=== PATIENT | female | born 1970 | race Caucasian/White ===

== ENCOUNTER → 2018-11-30 11:41 | Outpatient (CLI) | payer OTHER, SELFPAY ==
--- NOTE | 2018-11-30 11:43 | DI.MG.S_ITS ---
BILATERAL DIGITAL SCREENING MAMMOGRAM 3D/2D WITH CAD: 11/30/2018 CLINICAL: Routine screening. Family history of breast cancer. Comparison is made to exams dated: 11/18/2017 mammogram, 08/14/2015 mammogram, 07/31/2015 mammogram, and 10/26/2012 mammogram - [facility]. The tissue of both breasts is predominantly fatty. Current study was also evaluated with a Computer Aided Detection (CAD) system. No significant masses, calcifications, or other findings are seen in either breast. There has been no significant interval change. IMPRESSION: NEGATIVE There is no mammographic evidence of malignancy. A 1 year screening mammogram is recommended. This exam was interpreted at Station ID: [id number]. NOTE: For mammograms, a report in lay terms will be sent to the patient. Approximately 15% of breast malignancies will not be visualized mammographically. In the management of a palpable breast mass, a negative mammogram must not discourage biopsy of a clinically suspicious lesion. Electronically Signed By: Teodoro hamilton/galileo:11/30/2018 12:34:39 letter sent: Normal Exam ACR BI-RADS Category 1: Negative [id number]
== END ==
PROVIDERS: PCP Student in an Organized Health Care Education/Training Program; Visit Provider Student in an Organized Health Care Education/Training Program
DX: Z12.31 Encounter for screening mammogram for malignant neoplasm of breast (principal); Z80.3 Family history of malignant neoplasm of breast
CPT/HCPCS: 77063; 77067

== ENCOUNTER → 2019-03-05 07:23 | Outpatient (CLI) | payer OTHER, SELFPAY ==
[2019-03-05 08:15] LABS: BUN Creatinine Ratio 36.7 (6-22); Blood Urea Nitrogen 22 mg/dL (7-17); Calcium 9.7 mg/dL (8.4-10.2); Carbon Dioxide 26 mmol/L (22-32); Chloride 105 mmol/L (98-107); Cholesterol 239 mg/dL (140-199); Estimated Glomerular Filt Rate > 60.0 mL/min (>60); Glucose 98 mg/dL (70-100); HDL Cholesterol 57 mg/dL (40-60); HEMOLYSIS < 15 (0-50); LDL Cholesterol Calculated 118 mg/dL (<100); Potassium 4.4 mmol/L (3.4-5.1); Sodium 139 mmol/L (137-145); Triglycerides 322 mg/dL (35-150)
[2019-03-05 08:30] LABS: Vitamin D 25 Hydroxy (D3) 17.3 ng/mL (30.0-100.0)
== END ==
PROVIDERS: PCP Student in an Organized Health Care Education/Training Program; Visit Provider Student in an Organized Health Care Education/Training Program
DX: I10 Essential (primary) hypertension (principal); E78.2 Mixed hyperlipidemia; F17.200 Nicotine dependence, unspecified, uncomplicated; Z13.220 Encounter for screening for lipoid disorders; E55.9 Vitamin D deficiency, unspecified
CPT/HCPCS: 36415; 80048; 80061; 82306

== ENCOUNTER 2019-11-20 13:17 | Inpatient (IN) | payer OTHER, SELFPAY ==
[2019-11-20] VITALS (22 sets, daily range): BP systolic 90–144; BP diastolic 55–92; PULSE 92–105; RESP 16–33; TEMP 36.3–37.7; O2SAT 91–100; BMI 34.3
--- NOTE | 2019-11-20 | PATH_ITS ---
[facility] Accession Number: [id number] . 01 Material submitted: . gallbladder - GALLBLADDER WITH CONTENTS . 01 Clinical history: . ABD. PAIN X 2 DAYS AND DIARRHEA . 02 Diagnosis: Gallbladder, Cholecystectomy: Gallbladder with transmural coagulative necrosis, serositis and fibrous adhesions. No evidence of dysplasia or malignancy. [facility] 11/25/2019 1344 Local . 02 Comment: The morphologic appearance could be compatible with advanced gangrenous chlecystitis in the appropriate clinical and surgical setting. Pre analytic autolysis can not be completely excluded based on histology. . 02 Electronically signed: . Angela Mg MD, Pathologist NPI- [id number] . 01 Gross description: . Received in formalin, labeled gallbladder and contents, is an opened gallbladder (length-9.5 cm, diameter-5.5 cm) with ward-green smooth shiny serosa and an obliterated cystic duct. The proximal end is torn and ragged. No lymph nodes are identified. The lumen is void of contents. The mucosa is green, smooth and flat. The wall is up to 0.1 cm thick. No nodules, masses or lesions are identified. Section code: (A1) most proximal end, serially sectioned, entirely submitted; (A2) two technical sales representatives serial sections from the body; (A3) two technical sales representatives longitudinal sections from the fundus. ([id number]) /MRV 11/22/2019 1316 Local . 02 Pathologist provided ICD-10: K81.9 . 02 CPT . 943765 Performed at: 01 [facility] [address], [place], [place] [id number] MD Isaias Isidro MD Phone: [phone] Performed at: 02 [facility] [address] [place] [id number] MD Angela Mg MD Phone: [phone]
[2019-11-20 13:51] LABS: Add Manual Diff / Slide Review NO; Basophils Absolute Auto 0 /uL (0-100); Basophils Percent Auto 0.1 % (0-2); Eosinophils Absolute Auto 0 /uL (0-450); Eosinophils Percent Auto 0.1 % (2-4); Hematocrit 44.3 % (36-46); Hemoglobin 14.6 g/dL (12.0-16.0); Lymphocytes Absolute Auto 3400 /uL (1100-4500); Lymphocytes Percent Auto 20.7 % (25-40); Mean Corpuscular Hemoglobin 30.4 PG (26-34); Mean Corpuscular Volume 92.2 fL (80-100); Monocytes Absolute Auto 1100 /uL (0-900); Monocytes Percent Auto 6.7 % (3-14); Neutrophils Absolute Auto 12000 /uL (1500-7000); Neutrophils Percent Auto 72.4 % (50-75); Platelet Count 476 X10^3/uL (150-400); Red Cell Distribution Width 13.2 % (11.6-14.8); White Blood Cell Count 16.6 X10^3/uL (4.5-11.0)
[2019-11-20] MEDS: SODIUM CHLORIDE 0.9% 1,000 ML 1000 ML IV (13:55)
[2019-11-20 13:56] LABS: Alanine Aminotransferase 55 IU/L (<35); Albumin 4.2 g/dL (3.5-5.0); Albumin Globulin Ratio 1.1 (1.0-2.8); Alkaline Phosphatase 171 U/L (38-126); Aspartate Aminotransferase 56 IU/L (14-36); BUN Creatinine Ratio 37.2 (6-22); Bilirubin Total 1.7 mg/dL (0.2-1.3); Blood Urea Nitrogen 64 mg/dL (7-17); Calcium 10.1 mg/dL (8.4-10.2); Carbon Dioxide 25 mmol/L (22-32); Chloride 89 mmol/L (98-107); Estimated Glomerular Filt Rate 31.3 mL/min (>60); Globulin 3.9 g/dL (1.7-4.1); Glucose 205 mg/dL (70-100); HEMOLYSIS 39 (0-50); Lipase 15 U/L (23-300); Potassium 3.3 mmol/L (3.4-5.1); Sodium 132 mmol/L (137-145); Total Protein 8.1 g/dL (6.3-8.2)
[2019-11-20 13:58] LABS: Lactate (Lactic Acid) 4.2 mmol/L (0.7-2.1)
--- NOTE | 2019-11-20 13:59 | ED_ITS ---
HPI - Abdominal Pain <IMER Kate - Last Filed: 11/20/19 20:31> General Chief Complaint: Abdominal Pain Stated Complaint: Abd. pain x 2 days & diarrea Time Seen by Provider: 11/20/19 13:22 Source: patient Mode of arrival: Wheelchair Limitations: no limitations History of Present Illness HPI narrative: This is a 49-year-old female, smoker, who presents to ED with chief complain of bilateral low abdominal pain which started 2 days ago with vomiting and feeling very weak with low energy. Patient reports she had vomited about 5 to 6 times a day for last 2 days which has stopped today but still feels nauseated. Patient reports also dark green collar diarrhea started last night and she had about 3-4 times of episode so far. Last bowel movement was about an hour ago before coming into ED. patient reports she feels as having acid reflux and having frequent belching when she sits up. Patient denies fever, chills, nausea or vomiting. Patient denies recent travel, using antibiotic medications, similar symptoms among other family members, or urinary symptoms. Patient reports last solid meal was Monday evening and has been trying to hydrate with water in between emesis. Patient reports abdominal pain is 8/10 with constant cramping. Patient denies chest pain, breathing difficulty. Patient denies history of abdominal surgeries but chronic condition as hypertension. Patient denies using alcohol and uses occasional marijuana. Related Data Previous Rx's Medication Instructions Recorded nicotine 21 mg TOPICAL QDAY #45 patch 11/03/17 lisinopril 10 mg tablet 10 mg PO Q DAY #90 tab 11/13/18 Allergies Allergy/AdvReac Type Severity Reaction Status Date / Time Penicillins [PENICILLINS] Allergy Severe rash Verified 11/20/19 14:53 mold [MOLD] Allergy Unknown Verified 11/20/19 14:53 Review of Systems <IMER Kate - Last Filed: 11/20/19 20:31> Review of Systems Narrative: General: Denies fever, chills, (+) fatigue, malaise, sweats. HEENT: Denies sinus pain, ear pain, sore throat, difficulty swallowing, dizziness. Respiratory: Denies dyspnea, cough, wheezing, hemoptysis, sputum. Cardiovascular: Denies chest pain, palpitations, orthopnea, edema. Gastrointestinal: See HPI : Denies dysuria, frequency, incontinence, hematuria, urinary retention. Musculoskeletal: Denies weakness, joint pain or bony pain. Skin: Denies rash, skin lesions, or other. Neurologic: Denies weakness, headache, numbness, change in speech, confusion, seizures, incoordination. Psychiatric: No concerning psychosocial issues. 12-point review of systems is negative except for those stated above. Patient History <IMER Kate - Last Filed: 11/20/19 20:31> Medical History Endometrial hyperplasia (Chronic) Fibroids (Chronic) Hyperparathyroidism (Chronic) Hypertension (Chronic) Neck pain (Chronic) Surgical History History of hysterectomy (Resolved) Family History Grandfather Type 2 diabetes mellitus without complication Grandmother Secondary hypertension, unspecified Mother Age: 72 Sleep apnea, unspecified type Social History Smoking Status: Current every day smoker Smoking Status: Current every day smoker alcohol intake frequency: holidays/special occasions only Substance Use Type: marijuana Exam <IMER Kate - Last Filed: 11/20/19 20:31> Narrative Exam Narrative: GEN: Alert, oriented x 3, ill appearing and well-nourished. Appears to be in discomfort with shallow but tachypnea and facial grimacing. Head: Normal cephalic, atraumatic. No scalp or temporal tenderness, palpable mass or rash. EYES: Pupils are equal, round, and reactive to light and accommodation. Extraocular muscles are intact bilaterally. There is no subconjunctival hemorrhage, exudate and sclera non-icteric. ENT: Hearing grossly intact. Nose without bleeding, purulent discharge. Mucous membrane dry, no mucosal lesion. Throat without erythema, tonsillar hypertrophy or exudate. Uvula in midline, airway patent. Neck: Trachea in midline. No JVD, non-tender without lymphadenopathy. No masses or thyroid megaly. Supple, non-tender and no meningeal signs. CARDIAC: Normal regular rate and rhythm without murmurs, gallops, or rubs. No chest wall tenderness. No peripheral edema, cyanosis or pallor. Capillary refill is less than 3 seconds. RESPIRATORY: Lungs are clear to auscultate bilaterally. No cough, wheezes, rales, or rhonchi. No stridor, respiratory distress, increase work of breathing, or accessary muscle used. ABD: Abdomen soft and non-distended. Tenderness to palpate in bilateral low abdomen. No guarding or rebound tenderness to palpate. Bowel sounds are normal in all 4 quadrants. There is no palpable masses or organomegaly. EXT: Full painless ROM of all extremities with no loss of sensation, strength, effusion or edema. SKIN: Cool, dry, slightly pale color for patient. No erythema, lesions or rash over visible areas. BACK: Nontender without deformity or crepitance. No flank tenderness. NEUROLOGICAL: Alert and oriented to place, time and person. Sensation and motor function intact bilaterally. No facial droops, dysphasia. PSYCHIATRIC: Good judgement and reason, without hallucinations, abnormal affect or abnormal behaviors during the examination. Patient is not suicidal. Initial Vital Signs Initial Vital Signs: Vital Signs Temperature 98.2 F 11/20/19 13:23 Pulse Rate 102 H 11/20/19 13:23 Respiratory Rate 28 H 11/20/19 13:23 Blood Pressure 110/59 L 11/20/19 13:23 Pulse Oximetry 96 11/20/19 13:23 <Gerald Clifford MD - Last Filed: 11/21/19 07:44> Initial Vital Signs Initial Vital Signs: Vital Signs Temperature 98.2 F 11/20/19 13:23 Pulse Rate 102 H 11/20/19 13:23 Respiratory Rate 28 H 11/20/19 13:23 Blood Pressure 110/59 L 11/20/19 13:23 Pulse Oximetry 96 11/20/19 13:23 Scores <IMER Kate - Last Filed: 11/20/19 20:31> ABCD2 Citation: SIRS > 2 points GCS Robert coma scale eye opening: Spontaneous [place] coma scale verbal response: Orientated Robert coma scale motor response: Obey commands [place] coma scale total score: 15 qSOFA Altered Mental Status (GCS <15): No Respiratory rate greater than/equal to 22: Yes Systolic blood pressure less than or equal to 100: No qSOFA Total: 1 0-1 Not High Risk 1-3 High risk SOFA Platelets: >= 150 Bilirubin: 1.2-1.9 mg/dL Hypotension: MAP >= 70 mmHg Robert Coma Scale: 15 Renal: Creatinine 1.2-1.9 mg/dL Course <Filiberto ShayneRiteshReynaldoIMER khan - Last Filed: 11/20/19 20:31> Orders Ordered: Enoxaparin Sodium (Lovenox) 40 mg SUBCUT DAILY [facility] Fentanyl (Sublimaze) 0 mcg IV Q5MIN PRN PRN Reason: Pain, Severe (7-10) Hydromorphone HCl (Dilaudid) 0 mg IV Q5MIN PRN PRN Reason: Pain, Mild (1-3) Hydromorphone HCl (Dilaudid) 0.5 mg IV Q2HR [facility] Last Admin: 11/21/19 06:57 Dose: Not Given Documented by: Admin: 11/21/19 05:17 Dose: 0.5 mg Documented by: Admin: 11/21/19 02:54 Dose: Not Given Documented by: ALCIDES Sodium Chloride (Normal Saline 0.9%) 1,000 mls @ 100 mls/hr IV CONT [facility] Last Admin: 11/20/19 22:37 Dose: 100 mls/hr Documented by: CONRADO Ciprofloxacin (Cipro) 400 mg in 200 mls @ 200 mls/hr IV Q12H [facility] Last Infusion: 11/21/19 03:55 Dose: 200 mls/hr Documented by: Admin: 11/21/19 02:55 Dose: 200 mls/hr Documented by: ALCIDES Metronidazole (Flagyl) 500 mg in 100 mls @ 100 mls/hr IV Q8H [facility] Last Admin: 11/21/19 06:45 Dose: 100 mls/hr Documented by: Infusion: 11/21/19 00:31 Dose: 100 mls/hr Documented by: Admin: 11/20/19 23:31 Dose: 100 mls/hr Documented by: ALCIDES Lisinopril (Zestril) 10 mg PO DAILY [facility] Last Admin: 11/20/19 23:28 Dose: Not Given Documented by: ALCIDES Naloxone HCl (Narcan) 0.2 mg IV Q2MIN PRN PRN Reason: Opiate Reversal Nicotine (Nicoderm) 21 mg TOP DAILY [facility] Last Admin: 11/20/19 23:31 Dose: 21 mg Documented by: ALCIDES Ondansetron HCl (Zofran) 4 mg IV Q8HR PRN PRN Reason: Nausea And Vomiting Oxycodone HCl (Percolone) 5 mg PO Q6HR PRN PRN Reason: Pain, Moderate (4-6) Discontinued Medications Acetaminophen (Tylenol) 650 mg PO NOW ONE Stop: 11/20/19 15:42 Last Admin: 11/20/19 15:44 Dose: 650 mg Documented by: FRANCISCO Albuterol (Ventolin) 2.5 mg INH Q20M PRN PRN Reason: Shortness Of Breath Stop: 11/20/19 14:26 Albuterol/Ipratropium (Duoneb) 3 ml INH NOW ONE Stop: 11/20/19 13:39 Last Admin: 11/20/19 13:42 Dose: Not Given Documented by: RASHEED Bupivacaine HCl (Sensorcaine 0.5% (Pf)) 30 ml INJ NOW ONE Stop: 11/20/19 20:27 Last Admin: 11/20/19 20:26 Dose: 30 ml Documented by: RODRIGO Dicyclomine HCl (Bentyl) 10 mg PO NOW ONE Stop: 11/20/19 13:41 Last Admin: 11/20/19 14:50 Dose: Not Given Documented by: FRANCISCO Gabapentin (Neurontin) 300 mg PO NOW ONE Stop: 11/20/19 19:04 Last Admin: 11/20/19 22:37 Dose: Not Given Documented by: CONRADO Hydromorphone HCl (Dilaudid) 0.5 mg IV Q2HR [facility] Last Admin: 11/21/19 01:13 Dose: 0.5 mg Documented by: Admin: 11/20/19 23:47 Dose: Not Given Documented by: ALCIDES Sodium Chloride (Normal Saline 0.9%) 1,000 mls @ 150 mls/hr IV CONT [facility] Sodium Chloride (Normal Saline 0.9%) 1,000 mls @ 999 mls/hr IV CONT [facility] Last Infusion: 11/20/19 15:50 Dose: 0 mls/hr Documented by: Admin: 11/20/19 14:51 Dose: 999 mls/hr Documented by: FRANCISCO Sodium Chloride (Normal Saline 0.9%) 1,000 mls @ 1,000 mls/hr IV BOLUS ONE Stop: 11/20/19 15:04 Last Infusion: 11/20/19 16:48 Dose: 0 mls/hr Documented by: Admin: 11/20/19 13:55 Dose: 1,000 mls/hr Documented by: FRANCISCO Lactated Ringer's (Lactated Ringers) 1,000 mls @ 1,000 mls/hr IV BOLUS ONE Stop: 11/20/19 15:04 Last Infusion: 11/20/19 16:47 Dose: 0 mls/hr Documented by: Admin: 11/20/19 14:17 Dose: 1,000 mls/hr Documented by: FRANCISCO Potassium Chloride/Sodium Chloride (Ns With Kcl 20 Meq) 1,000 mls @ 100 mls/hr IV CONT [facility] Potassium Chloride/Sodium Chloride (Ns With Kcl 20 Meq) 10 mls @ 100 mls/hr IV CONT [facility] Last Admin: 11/20/19 15:53 Dose: Not Given Documented by: FRANCISCO Piperacillin/Tazobactam/Dextrose (Zosyn) 3.375 gm in 50 mls @ 100 mls/hr IV NOW ONE Stop: 11/20/19 14:40 Last Admin: 11/20/19 15:53 Dose: Not Given Documented by: FRANCISCO Vancomycin HCl (Vancomycin) 1,000 mg in 200 mls @ 200 mls/hr IV NOW ONE Stop: 11/20/19 15:09 Last Infusion: 11/20/19 17:55 Dose: 0 mls/hr Documented by: Admin: 11/20/19 16:51 Dose: 200 mls/hr Documented by: FRANCISCO Potassium Chloride 20 meq/ (Sodium Chloride) 260 mls @ 130 mls/hr IV NOW ONE Stop: 11/20/19 16:29 Last Infusion: 11/20/19 18:24 Dose: 0 mls/hr Documented by: FRANCISCO Cosigned by: STEPHEN Admin: 11/20/19 15:08 Dose: 130 mls/hr Documented by: FRANCISCO Cosigned by: STEPHEN Ciprofloxacin (Cipro) 400 mg in 200 mls @ 200 mls/hr IV NOW [facility] Last Infusion: 11/20/19 16:47 Dose: 0 mls/hr Documented by: Admin: 11/20/19 15:09 Dose: 200 mls/hr Documented by: FRANCISCO Cefepime HCl 1 gm/ Sodium (Chloride) 100 mls @ 200 mls/hr IV NOW ONE Stop: 11/20/19 17:38 Last Infusion: 11/20/19 18:52 Dose: 0 mls/hr Documented by: Admin: 11/20/19 17:59 Dose: 200 mls/hr Documented by: STEPHEN Lactated Ringer's (Lactated Ringers) 1,000 mls @ 42 mls/hr IV CONT [facility] Last Infusion: 11/20/19 21:55 Dose: 0 mls/hr Documented by: Admin: 11/20/19 20:28 Dose: 42 mls/hr Documented by: Infusion: 11/20/19 20:28 Dose: 42 mls/hr Documented by: Admin: 11/20/19 20:25 Dose: 42 mls/hr Documented by: Infusion: 11/20/19 20:25 Dose: 42 mls/hr Documented by: Admin: 11/20/19 19:45 Dose: 42 mls/hr Documented by: AMINTA Lactated Ringer's (Lactated Ringers) 1,000 mls @ 120 mls/hr IV CONT [facility] Last Admin: 11/20/19 22:39 Dose: Not Given Documented by: CONRADO Methylprednisolone (Solu-Medrol 125 Mg Vial) 125 mg IV NOW ONE Stop: 11/20/19 13:39 Last Admin: 11/20/19 13:42 Dose: Not Given Documented by: RASHEED Morphine Sulfate (Morphine) 4 mg IV NOW ONE Stop: 11/20/19 14:51 Last Admin: 11/20/19 15:10 Dose: 4 mg Documented by: FRANCISCO Morphine Sulfate (Morphine) 4 mg IV NOW ONE Stop: 11/20/19 17:27 Last Admin: 11/20/19 17:35 Dose: 4 mg Documented by: STEPHEN Ondansetron HCl (Zofran) 4 mg IV NOW ONE Stop: 11/20/19 13:41 Last Admin: 11/20/19 14:14 Dose: 4 mg Documented by: FRANCISCO Ondansetron HCl (Zofran) 4 mg IV NOW PRN PRN Reason: Nausea And Vomiting Oxycodone HCl (Percolone) 5 mg PO PACUNOW PRN PRN Reason: Mild or moderate pain Pantoprazole Sodium (Protonix) 40 mg IV NOW ONE Stop: 11/20/19 13:41 Last Admin: 11/20/19 14:10 Dose: 40 mg Documented by: FRANCISCO Potassium Chloride (Klor-Con M20) 20 meq PO NOW ONE Stop: 11/20/19 14:09 Last Admin: 11/20/19 16:51 Dose: 20 meq Documented by: FRANCISCO Vital Signs Vital signs: Vital Signs - 8 hr 11/20/19 13:23 11/20/19 14:30 11/20/19 15:00 Temperature 98.2 F Pulse Rate 102 H 98 H 97 H Respiratory Rate 28 H 27 H 26 H Blood Pressure 110/59 L Blood Pressure [Left Arm] 125/81 138/75 Pulse Oximetry 96 100 99 11/20/19 15:30 11/20/19 15:40 11/20/19 15:44 Temperature 99.9 F H 99.9 F H Pulse Rate 99 H Respiratory Rate 24 Blood Pressure Blood Pressure [Left Arm] 143/73 H Pulse Oximetry 99 11/20/19 16:30 11/20/19 17:05 11/20/19 17:14 Temperature 99.7 F H Pulse Rate 96 H 92 H Respiratory Rate 26 H 29 H Blood Pressure Blood Pressure [Left Arm] 141/73 H 144/92 H Pulse Oximetry 99 94 11/20/19 17:30 11/20/19 18:00 Temperature Pulse Rate 95 H 94 H Respiratory Rate 33 H 31 H Blood Pressure Blood Pressure [Left Arm] 136/77 136/83 Pulse Oximetry 91 93 <Gerald Clifford MD - Last Filed: 11/21/19 07:44> Orders Ordered: Enoxaparin Sodium (Lovenox) 40 mg SUBCUT DAILY [facility] Fentanyl (Sublimaze) 0 mcg IV Q5MIN PRN PRN Reason: Pain, Severe (7-10) Hydromorphone HCl (Dilaudid) 0 mg IV Q5MIN PRN PRN Reason: Pain, Mild (1-3) Hydromorphone HCl (Dilaudid) 0.5 mg IV Q2HR [facility] Last Admin: 11/21/19 06:57 Dose: Not Given Documented by: Admin: 11/21/19 05:17 Dose: 0.5 mg Documented by: Admin: 11/21/19 02:54 Dose: Not Given Documented by: ALCIDES Sodium Chloride (Normal Saline 0.9%) 1,000 mls @ 100 mls/hr IV CONT [facility] Last Admin: 11/20/19 22:37 Dose: 100 mls/hr Documented by: CONRADO Ciprofloxacin (Cipro) 400 mg in 200 mls @ 200 mls/hr IV Q12H [facility] Last Infusion: 11/21/19 03:55 Dose: 200 mls/hr Documented by: Admin: 11/21/19 02:55 Dose: 200 mls/hr Documented by: ALCDIES Metronidazole (Flagyl) 500 mg in 100 mls @ 100 mls/hr IV Q8H [facility] Last Admin: 11/21/19 06:45 Dose: 100 mls/hr Documented by: Infusion: 11/21/19 00:31 Dose: 100 mls/hr Documented by: Admin: 11/20/19 23:31 Dose: 100 mls/hr Documented by: ALCIDES Lisinopril (Zestril) 10 mg PO DAILY [facility] Last Admin: 11/20/19 23:28 Dose: Not Given Documented by: ALCIDES Naloxone HCl (Narcan) 0.2 mg IV Q2MIN PRN PRN Reason: Opiate Reversal Nicotine (Nicoderm) 21 mg TOP DAILY [facility] Last Admin: 11/20/19 23:31 Dose: 21 mg Documented by: ALCIDES Ondansetron HCl (Zofran) 4 mg IV Q8HR PRN PRN Reason: Nausea And Vomiting Oxycodone HCl (Percolone) 5 mg PO Q6HR PRN PRN Reason: Pain, Moderate (4-6) Discontinued Medications Acetaminophen (Tylenol) 650 mg PO NOW ONE Stop: 11/20/19 15:42 Last Admin: 11/20/19 15:44 Dose: 650 mg Documented by: FRANCISCO Albuterol (Ventolin) 2.5 mg INH Q20M PRN PRN Reason: Shortness Of Breath Stop: 11/20/19 14:26 Albuterol/Ipratropium (Duoneb) 3 ml INH NOW ONE Stop: 11/20/19 13:39 Last Admin: 11/20/19 13:42 Dose: Not Given Documented by: RASHEED Bupivacaine HCl (Sensorcaine 0.5% (Pf)) 30 ml INJ NOW ONE Stop: 11/20/19 20:27 Last Admin: 11/20/19 20:26 Dose: 30 ml Documented by: RODRIGO Dicyclomine HCl (Bentyl) 10 mg PO NOW ONE Stop: 11/20/19 13:41 Last Admin: 11/20/19 14:50 Dose: Not Given Documented by: FRANCISCO Gabapentin (Neurontin) 300 mg PO NOW ONE Stop: 11/20/19 19:04 Last Admin: 11/20/19 22:37 Dose: Not Given Documented by: CONRADO Hydromorphone HCl (Dilaudid) 0.5 mg IV Q2HR [facility] Last Admin: 11/21/19 01:13 Dose: 0.5 mg Documented by: Admin: 11/20/19 23:47 Dose: Not Given Documented by: ALCIDES Sodium Chloride (Normal Saline 0.9%) 1,000 mls @ 150 mls/hr IV CONT [facility] Sodium Chloride (Normal Saline 0.9%) 1,000 mls @ 999 mls/hr IV CONT [facility] Last Infusion: 11/20/19 15:50 Dose: 0 mls/hr Documented by: Admin: 11/20/19 14:51 Dose: 999 mls/hr Documented by: FRANCISCO Sodium Chloride (Normal Saline 0.9%) 1,000 mls @ 1,000 mls/hr IV BOLUS ONE Stop: 11/20/19 15:04 Last Infusion: 11/20/19 16:48 Dose: 0 mls/hr Documented by: Admin: 11/20/19 13:55 Dose: 1,000 mls/hr Documented by: FRANCISCO Lactated Ringer's (Lactated Ringers) 1,000 mls @ 1,000 mls/hr IV BOLUS ONE Stop: 11/20/19 15:04 Last Infusion: 11/20/19 16:47 Dose: 0 mls/hr Documented by: Admin: 11/20/19 14:17 Dose: 1,000 mls/hr Documented by: FRANCISCO Potassium Chloride/Sodium Chloride (Ns With Kcl 20 Meq) 1,000 mls @ 100 mls/hr IV CONT [facility] Potassium Chloride/Sodium Chloride (Ns With Kcl 20 Meq) 10 mls @ 100 mls/hr IV CONT [facility] Last Admin: 11/20/19 15:53 Dose: Not Given Documented by: FRANCISCO Piperacillin/Tazobactam/Dextrose (Zosyn) 3.375 gm in 50 mls @ 100 mls/hr IV NOW ONE Stop: 11/20/19 14:40 Last Admin: 11/20/19 15:53 Dose: Not Given Documented by: FRANCISCO Vancomycin HCl (Vancomycin) 1,000 mg in 200 mls @ 200 mls/hr IV NOW ONE Stop: 11/20/19 15:09 Last Infusion: 11/20/19 17:55 Dose: 0 mls/hr Documented by: Admin: 11/20/19 16:51 Dose: 200 mls/hr Documented by: FRANCISCO Potassium Chloride 20 meq/ (Sodium Chloride) 260 mls @ 130 mls/hr IV NOW ONE Stop: 11/20/19 16:29 Last Infusion: 11/20/19 18:24 Dose: 0 mls/hr Documented by: FRANCISCO Cosigned by: STEPHEN Admin: 11/20/19 15:08 Dose: 130 mls/hr Documented by: FRANCISCO Cosigned by: STEPHEN Ciprofloxacin (Cipro) 400 mg in 200 mls @ 200 mls/hr IV NOW [facility] Last Infusion: 11/20/19 16:47 Dose: 0 mls/hr Documented by: Admin: 11/20/19 15:09 Dose: 200 mls/hr Documented by: FRANCISCO Cefepime HCl 1 gm/ Sodium (Chloride) 100 mls @ 200 mls/hr IV NOW ONE Stop: 11/20/19 17:38 Last Infusion: 11/20/19 18:52 Dose: 0 mls/hr Documented by: Admin: 11/20/19 17:59 Dose: 200 mls/hr Documented by: STEPHEN Lactated Ringer's (Lactated Ringers) 1,000 mls @ 42 mls/hr IV CONT [facility] Last Infusion: 11/20/19 21:55 Dose: 0 mls/hr Documented by: Admin: 11/20/19 20:28 Dose: 42 mls/hr Documented by: Infusion: 11/20/19 20:28 Dose: 42 mls/hr Documented by: Admin: 11/20/19 20:25 Dose: 42 mls/hr Documented by: Infusion: 11/20/19 20:25 Dose: 42 mls/hr Documented by: Admin: 11/20/19 19:45 Dose: 42 mls/hr Documented by: AMINTA Lactated Ringer's (Lactated Ringers) 1,000 mls @ 120 mls/hr IV CONT [facility] Last Admin: 11/20/19 22:39 Dose: Not Given Documented by: CONRADO Methylprednisolone (Solu-Medrol 125 Mg Vial) 125 mg IV NOW ONE Stop: 11/20/19 13:39 Last Admin: 11/20/19 13:42 Dose: Not Given Documented by: RASHEED Morphine Sulfate (Morphine) 4 mg IV NOW ONE Stop: 11/20/19 14:51 Last Admin: 11/20/19 15:10 Dose: 4 mg Documented by: FRANCISCO Morphine Sulfate (Morphine) 4 mg IV NOW ONE Stop: 11/20/19 17:27 Last Admin: 11/20/19 17:35 Dose: 4 mg Documented by: STEPHEN Ondansetron HCl (Zofran) 4 mg IV NOW ONE Stop: 11/20/19 13:41 Last Admin: 11/20/19 14:14 Dose: 4 mg Documented by: FRANCISCO Ondansetron HCl (Zofran) 4 mg IV NOW PRN PRN Reason: Nausea And Vomiting Oxycodone HCl (Percolone) 5 mg PO PACUNOW PRN PRN Reason: Mild or moderate pain Pantoprazole Sodium (Protonix) 40 mg IV NOW ONE Stop: 11/20/19 13:41 Last Admin: 11/20/19 14:10 Dose: 40 mg Documented by: FRANCISCO Potassium Chloride (Klor-Con M20) 20 meq PO NOW ONE Stop: 11/20/19 14:09 Last Admin: 11/20/19 16:51 Dose: 20 meq Documented by: FRANCISCO Vital Signs Vital signs: Vital Signs - 8 hr 11/20/19 13:23 11/20/19 14:30 11/20/19 15:00 Temperature 98.2 F Pulse Rate 102 H 98 H 97 H Respiratory Rate 28 H 27 H 26 H Blood Pressure 110/59 L Blood Pressure [Left Arm] 125/81 138/75 Pulse Oximetry 96 100 99 11/20/19 15:30 11/20/19 15:40 11/20/19 15:44 Temperature 99.9 F H 99.9 F H Pulse Rate 99 H Respiratory Rate 24 Blood Pressure Blood Pressure [Left Arm] 143/73 H Pulse Oximetry 99 11/20/19 16:30 11/20/19 17:05 11/20/19 17:14 Temperature 99.7 F H Pulse Rate 96 H 92 H Respiratory Rate 26 H 29 H Blood Pressure Blood Pressure [Left Arm] 141/73 H 144/92 H Pulse Oximetry 99 94 11/20/19 17:30 11/20/19 18:00 Temperature Pulse Rate 95 H 94 H Respiratory Rate 33 H 31 H Blood Pressure Blood Pressure [Left Arm] 136/77 136/83 Pulse Oximetry 91 93 MDM - Abdominal Pain <IMER Kate - Last Filed: 11/20/19 20:31> Differential Diagnosis Differential diagnosis: Likely abdominal pain, acute appendicitis and other (Sepsis, infarct, colitis) Medical Records Attestation: I reviewed the patient's medical records. Lab Data Attestation: I reviewed the patient's lab results. Result diagrams: 11/21/19 06:20 11/21/19 06:20 Labs: Lab Results 11/20/19 11/20/19 11/20/19 Range/Units 13:32 13:32 13:32 WBC 16.6 H (4.5-11.0) X10^3/uL RBC 4.80 (4.0-5.2) X10^6/uL Hgb 14.6 (12.0-16.0) g/dL Hct 44.3 (36-46) % MCV 92.2 (80-100) fL MCH 30.4 (26-34) PG MCHC 33.0 (30-36) % RDW 13.2 (11.6-14.8) % Plt Count 476 H (150-400) X10^3/uL Neut % (Auto) 72.4 (50-75) % Lymph % (Auto) 20.7 L (25-40) % [place] % (Auto) 6.7 (3-14) % Eos % (Auto) 0.1 L (2-4) % Baso % (Auto) 0.1 (0-2) % Neut # (Auto) 34287 H (3862-9201) /uL Lymph # (Auto) 3400 (5007-4012) /uL [place] # (Auto) 1100 H (0-900) /uL Eos # (Auto) 0 (0-450) /uL Baso # (Auto) 0 (0-100) /uL PT (10.1-12.7) SECONDS INR (0.9-1.3) APTT (26.4-36.2) SECONDS Sodium 132 L (137-145) mmol/L Potassium 3.3 L (3.4-5.1) mmol/L Chloride 89 L (98-107) mmol/L Carbon Dioxide 25 (22-32) mmol/L BUN 64 H (7-17) mg/dL Creatinine 1.72 H (0.52-1.04) mg/dL Estimated GFR 31.3 L (>60) mL/min BUN/Creatinine Ratio 37.2 H (6-22) Glucose 205 H (70-100) mg/dL Lactate 4.2 H* (0.7-2.1) mmol/L Calcium 10.1 (8.4-10.2) mg/dL Total Bilirubin 1.7 H (0.2-1.3) mg/dL AST 56 H (14-36) IU/L ALT 55 H (<35) IU/L Alkaline Phosphatase 171 H (38-126) U/L Total Protein 8.1 (6.3-8.2) g/dL Albumin 4.2 (3.5-5.0) g/dL Globulin 3.9 (1.7-4.1) g/dL Albumin/Globulin Ratio 1.1 (1.0-2.8) Lipase 15 L (23-300) U/L Procalcitonin (<0.5) ng/mL Urine Color Urine Appearance Urine pH (4.5-8.0) Ur Specific [place] (1.000-1.035) Urine Protein (Negative) Urine Glucose (UA) (Negative) g/dL Urine Ketones (NEGATIVE) Urine Occult Blood (Negative) Urine Nitrate (Negative) Urine Bilirubin (NEGATIVE) Urine Urobilinogen (0.2) E.U./dL Ur Leukocyte Esterase (NEGATIVE) Urine RBC (0-5/HPF) Urine WBC (0-5/HPF) Ur Squamous Epith Cells (0-5/HPF) Urine Bacteria (None) Ur Culture Indicated? COVID-19 PCR (Not Detect) 11/20/19 11/20/19 11/20/19 Range/Units 13:32 14:04 15:40 WBC (4.5-11.0) X10^3/uL RBC (4.0-5.2) X10^6/uL Hgb (12.0-16.0) g/dL Hct (36-46) % MCV (80-100) fL MCH (26-34) PG MCHC (30-36) % RDW (11.6-14.8) % Plt Count (150-400) X10^3/uL Neut % (Auto) (50-75) % Lymph % (Auto) (25-40) % [place] % (Auto) (3-14) % Eos % (Auto) (2-4) % Baso % (Auto) (0-2) % Neut # (Auto) (8413-8809) /uL Lymph # (Auto) (6479-1521) /uL [place] # (Auto) (0-900) /uL Eos # (Auto) (0-450) /uL Baso # (Auto) (0-100) /uL PT 12.5 (10.1-12.7) SECONDS INR 1.1 (0.9-1.3) APTT 32 (26.4-36.2) SECONDS Sodium (137-145) mmol/L Potassium (3.4-5.1) mmol/L Chloride (98-107) mmol/L Carbon Dioxide (22-32) mmol/L BUN (7-17) mg/dL Creatinine (0.52-1.04) mg/dL Estimated GFR (>60) mL/min BUN/Creatinine Ratio (6-22) Glucose (70-100) mg/dL Lactate (0.7-2.1) mmol/L Calcium (8.4-10.2) mg/dL Total Bilirubin (0.2-1.3) mg/dL AST (14-36) IU/L ALT (<35) IU/L Alkaline Phosphatase (38-126) U/L Total Protein (6.3-8.2) g/dL Albumin (3.5-5.0) g/dL Globulin (1.7-4.1) g/dL Albumin/Globulin Ratio (1.0-2.8) Lipase (23-300) U/L Procalcitonin 4.12 H (<0.5) ng/mL Urine Color Urine Appearance Urine pH (4.5-8.0) Ur Specific [place] (1.000-1.035) Urine Protein (Negative) Urine Glucose (UA) (Negative) g/dL Urine Ketones (NEGATIVE) Urine Occult Blood (Negative) Urine Nitrate (Negative) Urine Bilirubin (NEGATIVE) Urine Urobilinogen (0.2) E.U./dL Ur Leukocyte Esterase (NEGATIVE) Urine RBC (0-5/HPF) Urine WBC (0-5/HPF) Ur Squamous Epith Cells (0-5/HPF) Urine Bacteria (None) Ur Culture Indicated? COVID-19 PCR Not detected (Not Detect) 11/20/19 11/20/19 11/20/19 Range/Units 16:26 16:30 17:05 WBC (4.5-11.0) X10^3/uL RBC (4.0-5.2) X10^6/uL Hgb (12.0-16.0) g/dL Hct (36-46) % MCV (80-100) fL MCH (26-34) PG MCHC (30-36) % RDW (11.6-14.8) % Plt Count (150-400) X10^3/uL Neut % (Auto) (50-75) % Lymph % (Auto) (25-40) % Letcher % (Auto) (3-14) % Eos % (Auto) (2-4) % Baso % (Auto) (0-2) % Neut # (Auto) (1244-6322) /uL Lymph # (Auto) (3609-7731) /uL Letcher # (Auto) (0-900) /uL Eos # (Auto) (0-450) /uL Baso # (Auto) (0-100) /uL PT (10.1-12.7) SECONDS INR (0.9-1.3) APTT (26.4-36.2) SECONDS Sodium 133 L (137-145) mmol/L Potassium 3.2 L (3.4-5.1) mmol/L Chloride 95 L (98-107) mmol/L Carbon Dioxide 29 (22-32) mmol/L BUN 56 H (7-17) mg/dL Creatinine 1.43 H (0.52-1.04) mg/dL Estimated GFR 38.7 L (>60) mL/min BUN/Creatinine Ratio 39.2 H (6-22) Glucose 128 H (70-100) mg/dL Lactate 2.9 H (0.7-2.1) mmol/L Calcium 8.4 (8.4-10.2) mg/dL Total Bilirubin (0.2-1.3) mg/dL AST (14-36) IU/L ALT (<35) IU/L Alkaline Phosphatase (38-126) U/L Total Protein (6.3-8.2) g/dL Albumin (3.5-5.0) g/dL Globulin (1.7-4.1) g/dL Albumin/Globulin Ratio (1.0-2.8) Lipase (23-300) U/L Procalcitonin (<0.5) ng/mL Urine Color Yellow Urine Appearance Cloudy Urine pH 5.0 (4.5-8.0) Ur Specific [place] 1.010 (1.000-1.035) Urine Protein 1+ H (Negative) Urine Glucose (UA) Negative (Negative) g/dL Urine Ketones Negative (NEGATIVE) Urine Occult Blood 1+ H (Negative) Urine Nitrate Negative (Negative) Urine Bilirubin Negative (NEGATIVE) Urine Urobilinogen 0.2 (0.2) E.U./dL Ur Leukocyte Esterase Negative (NEGATIVE) Urine RBC None seen (0-5/HPF) Urine WBC 1-5/hpf (0-5/HPF) Ur Squamous Epith Cells 1-5 /hpf (0-5/HPF) Urine Bacteria Few (2-10) H (None) Ur Culture Indicated? Cult not indicated COVID-19 PCR (Not Detect) Imaging Data CT scan - abdomen/pelvis: Radiologist's Impression: [address] [address] [address] Scan Report Signed Patient: LUCIA GURROLA [facility]#: [id number] : 1970Acct:[id number] Age/Sex: 49 / FDate of Service: 11/20/19 Loc: ED Accession Number: [id number] Procedure: CT abdomen pelvis w con Ordering Provider: Filiberto Weiner PROCEDURE: CT ABDOMEN PELVIS W CON INDICATIONS: bilateral abd pain, diarrhea, nausea TECHNIQUE: After the administration of intravenous contrast, 5 mm thick sections acquired f rom the diaphragm to the symphysis. 5 mm coronal and sagittal reformats were acquired. For radiation dose reduction, the following was used: automated exposure control, adjustment of mA and/or kV according to patient size. COMPARISON: [facility], CT, ABDOMEN/PELVIS WITH CONTRAST, 08/24/2014, 11:57. FINDINGS: Image quality: Excellent. ABDOMEN: Lung bases: Lung bases are abnormal, with slight alveolar infiltration within the left lower lung and at the posterior right lung base there is alveolar consolidation with air bronchograms that is overall mild to moderate in severity. Note is made of abnormal mural thickening of the esophagus over the course included on this examination through the lower chest and into the gastric lumen. Heart size is normal. Solid organs: Liver is normal in size and enhancement. Gallbladder is distended and appears inflamed, impinging against the descending duodenum and associated with adjacent jolie-cholecystic edema in the retroperitoneal and mesenteric fat. This inflammatory process extends to the margin of the proximal transverse colon, which may be mildly thickened as a result. It also involves the gastric antrum. Biliary system is non dilated. Pancreas enhances normally. Spleen is normal in size and enhancement. No adrenal nodules. Kidneys demonstrate normal size and enhancement, without hydronephrosis. Peritoneum and bowel: Colonic loops demonstrate normal wall thickness and caliber. No free fluid or air. Several small bowel loops over the lower abdomen and pelvis are abnormally fluid-filled, and measure up to 3.3 cm in maximal axial dimension, mildly distended. This pattern extends towards the ileocecal valve. What appears to be a normal appendix can be found at the right lower quadrant. Nodes and vessels: No retroperitoneal or mesenteric adenopathy by size criteria. Aorta and inferior vena cava are normal in size. Miscellaneous: No ventral hernias. PELVIS: Genitourinary: Bladder wall thickness is normal. Miscellaneous: No inguinal hernias or adenopathy. There is an excess of free fluid deep within the peritoneal space, mild in overall severity present within the cul-de-sac. No focal abscess is identified. No free air is found. Bones: No suspicious bony lesions. No vertebral body compression fractures. IMPRESSION: 1. Severe acute cholecystitis is the likely cause for the abnormal adjacent edema within the mesenteric and retroperitoneal fat. Gallstones are not identified, definite biliary distention is not seen but the inflammatory process extends to involve the gastric antrum and proximal transverse colon. 2. Fluid distention of the stomach, abnormal mural thickening within the visualized esophagus. Obstructive out flow from the gastric lumen may be secondary to the inflammation appears to secondarily involved the gastric antrum. 3. Small bowel distention is present at the lower abdomen/pelvis, etiology uncertain. Free fluid within the peritoneal space is present, and through the abdomen and pelvis no abscess is seen. 4. Mild pneumonia pattern right lung base, minimal pneumonia pattern left lung base. Dictated by: Papi Johnson M.D. on 11/20/2019 at 15:43 Approved by: Papi Johnson M.D. on 11/20/2019 at 15:52 US - abdomen: Radiologist's Impression: [place] [id number] Ultrasound Report Signed Patient: LUCIA GURROLA [facility]#: [id number] : 1970Acct:[id number] Age/Sex: 49 / FDate of Service: 11/20/19 Loc: ED Accession Number: [id number] Procedure: US abdomen limited Ordering Provider: Filiberto Weiner PROCEDURE: US ABDOMEN LIMITED INDICATIONS: CT-ACUTE CHOLECYSTITIIS, GI/SB DISTENTION, LOW ABD PAIN TECHNIQUE: Real-time focused scanning was performed of the abdomen, with image documentation. COMPARISON: None. FINDINGS: Liver echotexture is elevated, consistent with fatty infiltration. Gallbladder wall thickness is 5.7 mm, and there is a finding of sludge and stones within the gallbladder lumen. The gallbladder is hydropic, and there is a small amount of pericholecystic free fluid and also tenderness during sonographic palpation. Adjacent common duct measures 5.8 mm. IMPRESSION: Acute obstructed cholecystitis, surgical consultation is recommended . Currently the visualized bile duct does not appear distended. Fatty infiltration within the liver. Dictated by: Papi Johnson M.D. on 11/20/2019 at 16:50 Approved by: Papi Johnson M.D. on 11/20/2019 at 16:52 ECG Data Attestation: I personally reviewed and interpreted this ECG as follows: Interpretation: Sinus rhythm rate at 93. Left axis dominant. ID interval 150, QRS duration 105, QT/QTC 331/382. Q-waves in V3/V4 or R wave in V4 which is no change from previous EKG in March 2016. MDM Narrative Medical decision making narrative: This is 49-year-old female who presents to ED with low abdominal pain with nausea and vomiting for last 2 days. Patient reports she started diarrhea as well last night. Patient denies fever, chills but feeling fatigued and weak. Patient has no history of abdominal surgeries. She does not drink but uses occasional marijuana. Upon arrival, SIRS criteria was positive for greater than 2 point with tachypnea tachycardia. WBC was 16.6 with neutrophil# of 12,000. Platelets 476. #1 Lactate was 4.2 with procalcitonin of 4.12. Sodium level was 132 with potassium of 3.3 and chloride of 89. Carbon dioxide was normal as 25. BUN of 64, creatinine of 1.7 to with estimated GFR of 31.3 and BUN/creatinine ratio of 37.2. Serum glucose 205. Liver function test was mildly elevated with AST of 56, ALT of 55, alkaline phosphatase of 171 with elevated total bilirubin of 1.7. Lipase was 15. The patient could be extremity dehydrated and caused acute kidney failure. IV hydration for sepsis, 30 ml/kg has been ordered with normal saline 2 L and lactated ringer 1 L. additional lab with blood culture, coag has been ordered. Patient provided with 20 mEq of IV and p.o. each dose provided to supplement hypokalemia. Patient informed of abdomen/pelvis CT test with IV contrast to find out origin of infection. Patient was hydrated well via IV before CT test. Pending Sears swab. IV abd medications, Cipro 400 mg and vancomycin 1 g have been ordered empirically. [address] Busch with request to review CT imaging and lab findings. CT result came back and radiologist called for urgent surgical consultation for acute cholecystitis. According to the result, gallbladder is distended and appears inflamed impinging against the descending duodenum and associated with adjacent pericholecystic edema in the retroperitoneal and mesenteric fat. The inflammatory process extends to the margin of the proximal transverse colon which may be mildly thickened as well. It also involves gastric antrum. There is no obvious gallstones and biliary system is nondilated. There was no free fluid or air in peritoneal. There was several small bowel loops over the lower abdomen and pelvis abnormally fluid-filled. Normal appendix at the right lower quadrant. Also there is a axis of free fluid deep within the peritoneal space visualized. There is mild pneumonia pattern right lung base with minimal pneumonia pattern on left lung base. 1554 Dr. Bushc has contacted again to inform the CT result and he was recommended upper quadrants ultrasound test. Patient was re-evaluated and reports pain improved after morphine. Bilateral low abdomen is mildly tender to palpate. Patient informed CT findings of acute cholecystitis and at this time patient reports mild discomfort in epigastric region and Jolie umbilical region. Patient was medicated with Tylenol for chills and rigor. 1720 Dr. Busch consulted with US upper abdomen findings of acute obstructed cholecystitis. There is a sludge and stones within the gallbladder lumen with gallbladder thickness of 5.7 mm without bile duct distension. Fatty infiltration in liver appreciated with mild pericholecystic free fluid. Dr. Busch kindly accepted patient's care and plan for cholecystectomy at 6:00 p.m. today. Patient informed the above and plan of care. Patient reports feeling improved but recurring abdominal discomfort. Patient treated with morphine 4 mg twice for pain management. The 2nd lactate has improved to 2.9 from 4.2. Kidney function test after IV hydration improved slightly with BUN of 56, creatinine of 1.43, estimated GFR of 38.7. BUN/creatinine ratio of 39.2 which has increased from 37.2 this afternoon. Urine nitrate or urine leukocyte esterase. Patient was treated with Cipro 400 mg and vancomycin 1 g earlier empirically earlier for possible low GI infection. Adding cefepime 1 Gm for broader coverage for upper GI, cholecystitis, and bilateral lower lobe pneumonia for possibly secondary to aspiration as recommended by Dr. Clifford. <Gerald Clifford MD - Last Filed: 11/21/19 07:44> Lab Data Labs: Lab Results 11/20/19 11/20/19 11/20/19 Range/Units 13:32 13:32 13:32 WBC 16.6 H (4.5-11.0) X10^3/uL RBC 4.80 (4.0-5.2) X10^6/uL Hgb 14.6 (12.0-16.0) g/dL Hct 44.3 (36-46) % MCV 92.2 (80-100) fL MCH 30.4 (26-34) PG MCHC 33.0 (30-36) % RDW 13.2 (11.6-14.8) % Plt Count 476 H (150-400) X10^3/uL Neut % (Auto) 72.4 (50-75) % Lymph % (Auto) 20.7 L (25-40) % Letcher % (Auto) 6.7 (3-14) % Eos % (Auto) 0.1 L (2-4) % Baso % (Auto) 0.1 (0-2) % Neut # (Auto) 59573 H (0880-8044) /uL Lymph # (Auto) 3400 (1371-4755) /uL Letcher # (Auto) 1100 H (0-900) /uL Eos # (Auto) 0 (0-450) /uL Baso # (Auto) 0 (0-100) /uL PT (10.1-12.7) SECONDS INR (0.9-1.3) APTT (26.4-36.2) SECONDS Sodium 132 L (137-145) mmol/L Potassium 3.3 L (3.4-5.1) mmol/L Chloride 89 L (98-107) mmol/L Carbon Dioxide 25 (22-32) mmol/L BUN 64 H (7-17) mg/dL Creatinine 1.72 H (0.52-1.04) mg/dL Estimated GFR 31.3 L (>60) mL/min BUN/Creatinine Ratio 37.2 H (6-22) Glucose 205 H (70-100) mg/dL Lactate 4.2 H* (0.7-2.1) mmol/L Calcium 10.1 (8.4-10.2) mg/dL Total Bilirubin 1.7 H (0.2-1.3) mg/dL AST 56 H (14-36) IU/L ALT 55 H (<35) IU/L Alkaline Phosphatase 171 H (38-126) U/L Total Protein 8.1 (6.3-8.2) g/dL Albumin 4.2 (3.5-5.0) g/dL Globulin 3.9 (1.7-4.1) g/dL Albumin/Globulin Ratio 1.1 (1.0-2.8) Lipase 15 L (23-300) U/L Procalcitonin (<0.5) ng/mL Urine Color Urine Appearance Urine pH (4.5-8.0) Ur Specific [place] (1.000-1.035) Urine Protein (Negative) Urine Glucose (UA) (Negative) g/dL Urine Ketones (NEGATIVE) Urine Occult Blood (Negative) Urine Nitrate (Negative) Urine Bilirubin (NEGATIVE) Urine Urobilinogen (0.2) E.U./dL Ur Leukocyte Esterase (NEGATIVE) Urine RBC (0-5/HPF) Urine WBC (0-5/HPF) Ur Squamous Epith Cells (0-5/HPF) Urine Bacteria (None) Ur Culture Indicated? COVID-19 PCR (Not Detect) 11/20/19 11/20/19 11/20/19 Range/Units 13:32 14:04 15:40 WBC (4.5-11.0) X10^3/uL RBC (4.0-5.2) X10^6/uL Hgb (12.0-16.0) g/dL Hct (36-46) % MCV (80-100) fL MCH (26-34) PG MCHC (30-36) % RDW (11.6-14.8) % Plt Count (150-400) X10^3/uL Neut % (Auto) (50-75) % Lymph % (Auto) (25-40) % Letcher % (Auto) (3-14) % Eos % (Auto) (2-4) % Baso % (Auto) (0-2) % Neut # (Auto) (4419-7659) /uL Lymph # (Auto) (3661-5527) /uL Letcher # (Auto) (0-900) /uL Eos # (Auto) (0-450) /uL Baso # (Auto) (0-100) /uL PT 12.5 (10.1-12.7) SECONDS INR 1.1 (0.9-1.3) APTT 32 (26.4-36.2) SECONDS Sodium (137-145) mmol/L Potassium (3.4-5.1) mmol/L Chloride (98-107) mmol/L Carbon Dioxide (22-32) mmol/L BUN (7-17) mg/dL Creatinine (0.52-1.04) mg/dL Estimated GFR (>60) mL/min BUN/Creatinine Ratio (6-22) Glucose (70-100) mg/dL Lactate (0.7-2.1) mmol/L Calcium (8.4-10.2) mg/dL Total Bilirubin (0.2-1.3) mg/dL AST (14-36) IU/L ALT (<35) IU/L Alkaline Phosphatase (38-126) U/L Total Protein (6.3-8.2) g/dL Albumin (3.5-5.0) g/dL Globulin (1.7-4.1) g/dL Albumin/Globulin Ratio (1.0-2.8) Lipase (23-300) U/L Procalcitonin 4.12 H (<0.5) ng/mL Urine Color Urine Appearance Urine pH (4.5-8.0) Ur Specific [place] (1.000-1.035) Urine Protein (Negative) Urine Glucose (UA) (Negative) g/dL Urine Ketones (NEGATIVE) Urine Occult Blood (Negative) Urine Nitrate (Negative) Urine Bilirubin (NEGATIVE) Urine Urobilinogen (0.2) E.U./dL Ur Leukocyte Esterase (NEGATIVE) Urine RBC (0-5/HPF) Urine WBC (0-5/HPF) Ur Squamous Epith Cells (0-5/HPF) Urine Bacteria (None) Ur Culture Indicated? COVID-19 PCR Not detected (Not Detect) 11/20/19 11/20/19 11/20/19 Range/Units 16:26 16:30 17:05 WBC (4.5-11.0) X10^3/uL RBC (4.0-5.2) X10^6/uL Hgb (12.0-16.0) g/dL Hct (36-46) % MCV (80-100) fL MCH (26-34) PG MCHC (30-36) % RDW (11.6-14.8) % Plt Count (150-400) X10^3/uL Neut % (Auto) (50-75) % Lymph % (Auto) (25-40) % [place] % (Auto) (3-14) % Eos % (Auto) (2-4) % Baso % (Auto) (0-2) % Neut # (Auto) (8113-5764) /uL Lymph # (Auto) (9917-8894) /uL [place] # (Auto) (0-900) /uL Eos # (Auto) (0-450) /uL Baso # (Auto) (0-100) /uL PT (10.1-12.7) SECONDS INR (0.9-1.3) APTT (26.4-36.2) SECONDS Sodium 133 L (137-145) mmol/L Potassium 3.2 L (3.4-5.1) mmol/L Chloride 95 L (98-107) mmol/L Carbon Dioxide 29 (22-32) mmol/L BUN 56 H (7-17) mg/dL Creatinine 1.43 H (0.52-1.04) mg/dL Estimated GFR 38.7 L (>60) mL/min BUN/Creatinine Ratio 39.2 H (6-22) Glucose 128 H (70-100) mg/dL Lactate 2.9 H (0.7-2.1) mmol/L Calcium 8.4 (8.4-10.2) mg/dL Total Bilirubin (0.2-1.3) mg/dL AST (14-36) IU/L ALT (<35) IU/L Alkaline Phosphatase (38-126) U/L Total Protein (6.3-8.2) g/dL Albumin (3.5-5.0) g/dL Globulin (1.7-4.1) g/dL Albumin/Globulin Ratio (1.0-2.8) Lipase (23-300) U/L Procalcitonin (<0.5) ng/mL Urine Color Yellow Urine Appearance Cloudy Urine pH 5.0 (4.5-8.0) Ur Specific [place] 1.010 (1.000-1.035) Urine Protein 1+ H (Negative) Urine Glucose (UA) Negative (Negative) g/dL Urine Ketones Negative (NEGATIVE) Urine Occult Blood 1+ H (Negative) Urine Nitrate Negative (Negative) Urine Bilirubin Negative (NEGATIVE) Urine Urobilinogen 0.2 (0.2) E.U./dL Ur Leukocyte Esterase Negative (NEGATIVE) Urine RBC None seen (0-5/HPF) Urine WBC 1-5/hpf (0-5/HPF) Ur Squamous Epith Cells 1-5 /hpf (0-5/HPF) Urine Bacteria Few (2-10) H (None) Ur Culture Indicated? Cult not indicated COVID-19 PCR (Not Detect) Discharge Plan Departure Patient Disposition: Admitted As Inpatient Clinical Impression: Acute calculous cholecystitis, Acute kidney injury Sepsis Qualifiers: Sepsis type: sepsis due to unspecified organism Sepsis acute organ dysfunction status: unspecified Qualified Code(s): A41.9 - Sepsis, unspecified organism Pneumonia Qualifiers: Pneumonia type: due to unspecified organism Laterality: bilateral Lung locat ion: lower lobe of lung Qualified Code(s): J18.9 - Pneumonia, unspecified organism Discharge Date/Time: 11/20/19 18:55 Referrals: Gordo Quintana MD [Primary Care Provider] - Admit Date/Time: 11/20/19 18:44 Admit Provider: Brandyn Busch
[2019-11-20] MEDS: PANTOPRAZOLE 40 MG VIAL IV (14:10)
[2019-11-20] MEDS: ONDANSETRON 4 MG/2 ML INJ IV (14:14)
[2019-11-20] MEDS: LACTATED RINGERS 1,000 ML 1000 ML IV (14:17)
[2019-11-20 14:32] LABS: Procalcitonin 4.12 ng/mL (<0.5)
[2019-11-20] MEDS: SODIUM CHLORIDE 0.9% 1,000 ML 999 ML IV (14:51)
[2019-11-20 15:08] LABS: INR 1.1 (0.9-1.3); Prothrombin Time 12.5 SECONDS (10.1-12.7)
[2019-11-20] MEDS: POTASSIUM CHLORIDE 20 MEQ in SODIUM CHLORIDE 0.9% 250 ML 130 ML IV (15:08)
[2019-11-20] MEDS: CIPROFLOXACIN 400 MG/200 ML PIGGYBACK 200 MG IV (15:09)
[2019-11-20] MEDS: MORPHINE 4 MG/ML INJ IV ×2 (15:10→17:35)
[2019-11-20 15:11] LABS: PTT Partial Thromboplastin Tim 32 SECONDS (26.4-36.2)
[2019-11-20] MEDS: ACETAMINOPHEN 325 MG TABLET 650 MG PO (15:44)
[2019-11-20 15:46] LABS: Reflexed Lactate in 2 Hours Y
--- NOTE | 2019-11-20 16:02 | DI.US.S_ITS ---
PROCEDURE: US ABDOMEN LIMITED INDICATIONS: CT-ACUTE CHOLECYSTITIIS, GI/SB DISTENTION, LOW ABD PAIN TECHNIQUE: Real-time focused scanning was performed of the abdomen, with image documentation. COMPARISON: None. FINDINGS: Liver echotexture is elevated, consistent with fatty infiltration. Gallbladder wall thickness is 5.7 mm, and there is a finding of sludge and stones within the gallbladder lumen. The gallbladder is hydropic, and there is a small amount of pericholecystic free fluid and also tenderness during sonographic palpation. Adjacent common duct measures 5.8 mm. IMPRESSION: Acute obstructed cholecystitis, surgical consultation is recommended. Currently the visualized bile duct does not appear distended. Fatty infiltration within the liver. Dictated by: Papi Johnson M.D. on 11/20/2019 at 16:50 Approved by: Papi Johnson M.D. on 11/20/2019 at 16:52
[2019-11-20 16:51] LABS: BUN Creatinine Ratio 39.2 (6-22); Blood Urea Nitrogen 56 mg/dL (7-17); Calcium 8.4 mg/dL (8.4-10.2); Carbon Dioxide 29 mmol/L (22-32); Chloride 95 mmol/L (98-107); Estimated Glomerular Filt Rate 38.7 mL/min (>60); Glucose 128 mg/dL (70-100); HEMOLYSIS < 15 (0-50); Potassium 3.2 mmol/L (3.4-5.1); Sodium 133 mmol/L (137-145)
[2019-11-20 16:51] LABS: Lactate 2HR (Lactic Acid Rflx) 2.9 mmol/L (0.7-2.1)
[2019-11-20] MEDS: POTASSIUM CHLORIDE 20 MEQ TAB PO (16:51)
[2019-11-20] MEDS: VANCOMYCIN 1,000 MG/200 ML PIGGYBACK 200 MG IV (16:51)
[2019-11-20 17:18] LABS: RBC Urine None Seen (0-5/HPF)
[2019-11-20 17:19] LABS: Bilirubin Urine UA NEGATIVE (NEGATIVE); Color Urine UA YELLOW; Glucose Urine UA NEGATIVE (Negative); Ketones Urine UA NEGATIVE (NEGATIVE); Leukocyte Esterase Urine UA NEGATIVE (NEGATIVE); Nitrite Urine UA NEGATIVE (Negative); Occult Blood Urine UA 1+ (Negative); Protein Urine UA 1+ (Negative); Urobilinogen Urine UA 0.2 E.U./dL (0.2)
[2019-11-20 17:20] LABS: Appearance Urine UA CLOUDY
[2019-11-20 17:40] LABS: Bacteria Urine Few (2-10); Culture Indicated Urine Cult Not Indicated; Squamous Epithelial Cell Urine 1-5 /HPF (0-5/HPF); WBC Urine 1-5/HPF (0-5/HPF)
[2019-11-20] MEDS: CEFEPIME 1 GM in SODIUM CHLORIDE 0.9% 100 ML 200 ML IV (17:59)
--- NOTE | 2019-11-20 18:00 | P.HP_ITS ---
History of Present Illness History of Present Illness Date Patient Seen: 11/20/19 Time Patient Seen: 18:01 Chief complaint: Abd. pain x 2 days & diarrea Narrative: Grace is a 49-year-old woman with a history of hypertension and morbid obesity who presents with 2 days of acute cholecystitis. She presented to the emergency room with generalized abdominal pain associated nausea and diarrhea. CT abdomen pelvis demonstrates acute cholecystitis. In addition she h ad a right upper quadrant ultrasound that confirmed presence of gallstones and edematous gallbladder with pericholecystic fluid and a normal common bile duct. On admission she has mild tachycardia and tachypnea WBC 17 creatinine 1.4 total bilirubin 1.7 Alk Phos 170. She has been unable to eat or drink for the past 2 days and feels very dehydrated. No prior abdominal surgery. Patient History Medical History Endometrial hyperplasia (Chronic) Fibroids (Chronic) Hyperparathyroidism (Chronic) Hypertension (Chronic) Neck pain (Chronic) Surgical History History of hysterectomy (Resolved) Family & Social History Family History Grandfather Type 2 diabetes mellitus without complication Grandmother Secondary hypertension, unspecified Mother Age: 72 Sleep apnea, unspecified type Safety & Behavioral: Feels Safe in Current Yes Environment Been Physically Hurt or No Threatened By a Person Tobacco & Substance use: Smoking Status Current every day smoker alcohol intake frequency holiday/special occasion Substance Use Type marijuana Meds Home Medications and Allergies Home Medications Medication Instructions Recorded Confirmed Type nicotine 21 mg TOPICAL QDAY #45 patch 11/03/17 11/13/18 Rx lisinopril 10 mg tablet 10 mg PO Q DAY #90 tab 11/13/18 Rx Allergies Allergy/AdvReac Type Severity Reaction Status Date / Time Penicillins [PENICILLINS] Allergy Severe rash Verified 11/20/19 14:53 mold [MOLD] Allergy Unknown Verified 11/20/19 14:53 Review of Systems Review of Systems Narrative: A 10 point review of systems is negative except as noted in the HPI Exam Vital Signs (past 8 hours): - 11/20/19 13:23 11/20/19 14:30 11/20/19 15:00 Temperature 98.2 F Pulse Rate 102 H 98 H 97 H Respiratory Rate 28 H 27 H 26 H Blood Pressure 110/59 L Blood Pressure [Left Arm] 125/81 138/75 Pulse Oximetry 96 100 99 11/20/19 15:30 11/20/19 15:40 11/20/19 15:44 Temperature 99.9 F H 99.9 F H Pulse Rate 99 H Respiratory Rate 24 Blood Pressure Blood Pressure [Left Arm] 143/73 H Pulse Oximetry 99 11/20/19 16:30 11/20/19 17:05 11/20/19 17:14 Temperature 99.7 F H Pulse Rate 96 H 92 H Respiratory Rate 26 H 29 H Blood Pressure Blood Pressure [Left Arm] 141/73 H 144/92 H Pulse Oximetry 99 94 Oxygen Delivery Method Room Air Narrative Exam Narrative: General-no acute distress, obese female HEENT-moist mucous membranes, no scleral icterus Neck-supple, no lymphadenopathy Chest- non labored respirations, clear to auscultation bilaterally Cardiac-regular rate no peripheral edema Abdomen-positive Medeiros's sign Extremities-warm, well perfused Neurological-alert and oriented, no focal deficits Objective Labs Result Diagrams: 11/20/19 13:32 11/20/19 16:30 Labs: Laboratory Results - last 24 hr 11/20/19 11/20/19 11/20/19 13:32 13:32 13:32 WBC 16.6 H RBC 4.80 Hgb 14.6 Hct 44.3 MCV 92.2 MCH 30.4 MCHC 33.0 RDW 13.2 Plt Count 476 H Neut % (Auto) 72.4 Lymph % (Auto) 20.7 L Esmeralda % (Auto) 6.7 Eos % (Auto) 0.1 L Baso % (Auto) 0.1 Neut # (Auto) 82443 H Lymph # (Auto) 3400 Esmer[place]da # (Auto) 1100 H Eos # (Auto) 0 Baso # (Auto) 0 PT INR APTT Sodium 132 L Potassium 3.3 L Chloride 89 L Carbon Dioxide 25 BUN 64 H Creatinine 1.72 H Estimated GFR 31.3 L BUN/Creatinine Ratio 37.2 H Glucose 205 H Lactate 4.2 H* Calcium 10.1 Total Bilirubin 1.7 H AST 56 H ALT 55 H Alkaline Phosphatase 171 H Total Protein 8.1 Albumin 4.2 Globulin 3.9 Albumin/Globulin Ratio 1.1 Lipase 15 L Procalcitonin Urine Color Urine Appearance Urine pH Ur Specific [place] Urine Protein Urine Glucose (UA) Urine Ketones Urine Occult Blood Urine Nitrate Urine Bilirubin Urine Urobilinogen Ur Leukocyte Esterase Urine RBC Urine WBC Ur Squamous Epith Cells Urine Bacteria Ur Culture Indicated? 11/20/19 11/20/19 11/20/19 13:32 14:04 16:26 WBC RBC Hgb Hct MCV MCH MCHC RDW Plt Count Neut % (Auto) Lymph % (Auto) Esmeralda % (Auto) Eos % (Auto) Baso % (Auto) Neut # (Auto) Lymph # (Auto) [place]mer[place]da # (Auto) Eos # (Auto) Baso # (Auto) PT 12.5 INR 1.1 APTT 32 Sodium Potassium Chloride Carbon Dioxide BUN Creatinine Estimated GFR BUN/Creatinine Ratio Glucose Lactate 2.9 H Calcium Total Bilirubin AST ALT Alkaline Phosphatase Total Protein Albumin Globulin Albumin/Globulin Ratio Lipase Procalcitonin 4.12 H Urine Color Urine Appearance Urine pH Ur Specific [place] Urine Protein Urine Glucose (UA) Urine Ketones Urine Occult Blood Urine Nitrate Urine Bilirubin Urine Urobilinogen Ur Leukocyte Esterase Urine RBC Urine WBC Ur Squamous Epith Cells Urine Bacteria Ur Culture Indicated? 11/20/19 11/20/19 16:30 17:05 WBC RBC Hgb Hct MCV MCH MCHC RDW Plt Count Neut % (Auto) Lymph % (Auto) Esmer[place]da % (Auto) Eos % (Auto) Baso % (Auto) Neut # (Auto) Lymph # (Auto) [place]mer[place] # (Auto) Eos # (Auto) Baso # (Auto) PT INR APTT Sodium 133 L Potassium 3.2 L Chloride 95 L Carbon Dioxide 29 BUN 56 H Creatinine 1.43 H Estimated GFR 38.7 L BUN/Creatinine Ratio 39.2 H Glucose 128 H Lactate Calcium 8.4 Total Bilirubin AST ALT Alkaline Phosphatase Total Protein Albumin Globulin Albumin/Globulin Ratio Lipase Procalcitonin Urine Color Yellow Urine Appearance Cloudy Urine pH 5.0 Ur Specific [place] 1.010 Urine Protein 1+ H Urine Glucose (UA) Negative Urine Ketones Negative Urine Occult Blood 1+ H Urine Nitrate Negative Urine Bilirubin Negative Urine Urobilinogen 0.2 Ur Leukocyte Esterase Negative Urine RBC None seen Urine WBC 1-5/hpf Ur Squamous Epith Cells 1-5 /hpf Urine Bacteria Few (2-10) H Ur Culture Indicated? Cult not indicated Assessment & Plan Assessment and plan (1) Acute calculous cholecystitis: Current visit: Yes Status: Acute Assessment & Plan narrative: Lacie is a 49-year-old woman with obesity and hypertension who presents with acute cholecystitis of 2 days duration. Reviewed her laboratory studies which are significant for a white count of 17, creatinine 1.4, total bilirubin 1.7, lactate 2.9. Her imaging shows acute cholecystitis with a normal bile duct. I suspect that the elevated total bilirubin in is secondary to acute cholecystitis and dehydration not obstruction of the common bile duct as the duct is normal diameter on imaging. However I told her that I would recommend performing a cholangiogram with the cholecystectomy to evaluate for duct obstruction. We discussed the risks of the operation including bleeding infection damage to surrounding structures bile leak, bile duct injury, intestinal injury, and retained stone. Questions have been answered she is in agreement with this plan. Will plan to admit the patient for observation postoperatively.
--- NOTE | 2019-11-20 18:04 | PC.NURSE ---
Pt reports her mom wants to be notified. Alisha Vladislav # [phone] this contact is already in her chart.
[2019-11-20] MEDS: LACTATED RINGERS 1,000 ML 42 ML IV ×3 (19:45→20:28)
--- NOTE | 2019-11-20 19:55 | SUR.OPER ---
Supine on padded OR bed, head on pillow, safety belt at thigh, left arm padded and tucked at side. Right arm secured on padded arm oard <90 degrees abduction. Legs uncrossed. Padded footboard in place. Tape over blanket to secure lower legs.
[2019-11-20] MEDS: BUPIVACAINE 0.5% (PF) VIAL 30 ML INJ (20:26)
--- NOTE | 2019-11-20 21:19 | P.OP_ITS ---
Operative Date/Time/Diagnoses Date of procedure: 11/20/19 Time of procedure: 21:19 Pre-op diagnosis: Acute cholecystitis Post-op diagnosis: other (Necrotic cholecystitis) Procedure & Clinicians Procedure: Open subtotal cholecystectomy Same procedure as scheduled: Yes Indications: This is a 49-year-old woman who presented with several days of abdominal pain imaging demonstrates acute cholecystitis Surgeon: Brandyn Busch State Attorney: Disha Martinez Anesthesia Type: General Operative Notes Findings: Necrotic perforated gallbladder. Gallbladder necrotic down to the level of the cystic duct in encroaching on the stomach and hepatic flexure Specimen(s): other (Gallbladder) Estimated Blood Loss (mL): 50 Procedure in detail: Patient was brought to the operating room placed supine on the table. Bilateral lower extremity compression devices were applied. She was intubated with an endotracheal tube. She received vancomycin and meropenem in the emergency room. She was prepped and draped in sterile fashion. Time-out was performed ensure the correct patient procedure necessary equipment within [facility] operating room. An infraumbilical skin incision was made the of umbilical stalk was elevated and the fascia was sharply incised. There was spontaneous drainage of bilious ascites. The balloon trocar was then placed and the abdomen was insufflated. There was a moderate amount of fluid within the abdomen and a great deal of generalized inflammation and purulence near the stomach and liver. I placed a 5 mm trocar in the right upper quadrant in order to aid in exposure of the gallbladder. The omentum was swept away and the gallbladder fundus and body were frankly necrotic and perforated. I could not visualize any of the gallbladder distal to the body. I converted to open. A subcostal incision was made through the subcutaneous tissue and the muscle. The abdomen was entered atraumatically. The Bookwalter was placed to aid in retraction. The gallbladder was taken off of the liver bed in a top-down approach. The stomach and the hepatic flexure of the colon were gently from the necrotic gallbladder. There was no obvious fistula between any of these structures. I left a portion of the back wall of gallbladder. Working top down I was able to safely reach past the gallbladder body but the inflammation around the neck of the gallbladder and towards the cystic duct was extremely inflamed. Unable to safely identify any could critical structures within the triangle of calot I choose to transect the gallbladder in a subtotal fashion using a vascular load from the TA stapler. There was a small hole in the remaining gallbladder that was oversewed in a figure-eight fashion with 3 0 PDS suture. There was some degree of necrosis of the remaining the gallbladder but but no sekou perforation. 4 L of sterile saline were used to lavage the abdomen and this returned clear. A 19 [place] Josh drain was placed into the gallbladder fossa and brought out through the right side of the abdomen. The subcostal incision was then closed using 1. PDS in a running fashion from above and below to close the fascia. The subcutaneous tissues were then reapproximated using 3 0 Vicryl suture and skin closed with ana lilia. The umbilical fascia was then closed under direct visualization using Vicryl suture and the skin closed with ana lilia. Patient tolerated the procedure well there extubated and transferred to the recovery room in stable condition. Complications: none Post-operative Condition: stable Disposition: Acute Care
--- NOTE | 2019-11-20 21:47 | SUR.PHASEI ---
RENETTA drainage reddish/bile/brownish colored, no clots. Denies pain/nausea. Report called to Aziza Preston RN
--- NOTE | 2019-11-20 22:17 | SUR.PHASEI ---
2149 Pt stable, denies pain/nausea, tolerating and enjoying ice chips. She has her home/mask on for covid precautions. 2155 Transported to AC 210, bed down and locked, call light within reach. Transported on O2 at 2LNP, continued in room. SCDs on. Assisted AC staff in turning, repositioning, and rectal hygiene. Pt comfortable and assisted with turning herself quite easily without complaint of pain or moaning. HOB elevated for comfort. 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
[2019-11-20] MEDS: SODIUM CHLORIDE 0.9% 1,000 ML 100 ML IV (22:37)
[2019-11-20] MEDS: NICOTINE 21 MG PATCH TOP (23:31)
[2019-11-20] MEDS: metroNIDAZOLE 500 MG/100 ML PIGGYBACK 100 MG IV (23:31)
[2019-11-21] VITALS (12 sets, daily range): BP systolic 103–138; BP diastolic 58–86; PULSE 69–91; RESP 16–18; TEMP 36.3–37.6; O2SAT 92–96
[2019-11-21 00:31] LABS: COVID19 Sendout Not Detected (Not Detect)
[2019-11-21] MEDS: HYDROMORPHONE 1 MG INJ 0.5 MG IV (01:13)
[2019-11-21] MEDS: CIPROFLOXACIN 400 MG/200 ML PIGGYBACK 200 MG IV ×2 (02:55→15:49)
[2019-11-21] MEDS: HYDROMORPHONE 0.5 MG INJ IV ×8 (05:17→21:05)
[2019-11-21] MEDS: metroNIDAZOLE 500 MG/100 ML PIGGYBACK 100 MG IV ×3 (06:45→21:05)
[2019-11-21 06:53] LABS: Alanine Aminotransferase 67 IU/L (<35); Albumin 2.8 g/dL (3.5-5.0); Albumin Globulin Ratio 0.9 (1.0-2.8); Alkaline Phosphatase 132 U/L (38-126); Aspartate Aminotransferase 65 IU/L (14-36); BUN Creatinine Ratio 44.1 (6-22); Bilirubin Total 0.8 mg/dL (0.2-1.3); Blood Urea Nitrogen 41 mg/dL (7-17); Calcium 7.9 mg/dL (8.4-10.2); Carbon Dioxide 25 mmol/L (22-32); Chloride 101 mmol/L (98-107); Estimated Glomerular Filt Rate > 60.0 mL/min (>60); Globulin 3.1 g/dL (1.7-4.1); Glucose 139 mg/dL (70-100); HEMOLYSIS < 15 (0-50); Potassium 3.6 mmol/L (3.4-5.1); Sodium 132 mmol/L (137-145); Total Protein 5.9 g/dL (6.3-8.2)
[2019-11-21 06:57] LABS: Add Manual Diff / Slide Review NO; Basophils Absolute Auto 0 /uL (0-100); Eosinophils Absolute Auto 0 /uL (0-450); Hematocrit 35.3 % (36-46); Hemoglobin 11.6 g/dL (12.0-16.0); Lymphocytes Absolute Auto 1000 /uL (1100-4500); Lymphocytes Percent Auto 9.3 % (25-40); Mean Corpuscular HGB Conc 32.9 % (30-36); Mean Corpuscular Hemoglobin 30.5 PG (26-34); Mean Corpuscular Volume 92.6 fL (80-100); Monocytes Absolute Auto 600 /uL (0-900); Monocytes Percent Auto 5.4 % (3-14); Neutrophils Absolute Auto 9500 /uL (1500-7000); Neutrophils Percent Auto 85.3 % (50-75); Platelet Count 322 X10^3/uL (150-400); Red Blood Cell Count 3.81 X10^6/uL (4.0-5.2); White Blood Cell Count 11.2 X10^3/uL (4.5-11.0)
--- NOTE | 2019-11-21 08:11 | P.PN_ITS ---
Subjective Subjective Date Patient Seen: 11/21/19 Time Patient Seen: 08:11 Interval history: No acute overnight events. Tolerated clear liquids. No nausea vomiting fever. Significant right upper quadrant incisional pain. Exam Vital Signs (past 8 hours): - 11/21/19 01:16 11/21/19 04:08 11/21/19 05:00 Temperature 97.8 F Pulse Rate 88 75 Respiratory Rate 16 16 Blood Pressure 133/66 138/86 Pulse Oximetry 96 95 95 Oxygen Delivery Method Nasal Cannula Oxygen Flow Rate 2 Narrative Exam Narrative: General adult female alert oriented no acute distress Chest nonlabored respiration Abdomen appropriately tender to palpation right upper quadrant incision dressings clean dry intact. Drain right upper quadrant bile. Objective Labs Result Diagrams: 11/21/19 06:20 11/21/19 06:20 Labs: Laboratory Results - last 24 hr 11/20/19 11/20/19 11/20/19 13:32 13:32 13:32 WBC 16.6 H RBC 4.80 Hgb 14.6 Hct 44.3 MCV 92.2 MCH 30.4 MCHC 33.0 RDW 13.2 Plt Count 476 H Neut % (Auto) 72.4 Lymph % (Auto) 20.7 L [place] % (Auto) 6.7 Eos % (Auto) 0.1 L Baso % (Auto) 0.1 Neut # (Auto) 49532 H Lymph # (Auto) 3400 [place] # (Auto) 1100 H Eos # (Auto) 0 Baso # (Auto) 0 PT INR APTT Sodium 132 L Potassium 3.3 L Chloride 89 L Carbon Dioxide 25 BUN 64 H Creatinine 1.72 H Estimated GFR 31.3 L BUN/Creatinine Ratio 37.2 H Glucose 205 H Lactate 4.2 H* Calcium 10.1 Total Bilirubin 1.7 H AST 56 H ALT 55 H Alkaline Phosphatase 171 H Total Protein 8.1 Albumin 4.2 Globulin 3.9 Albumin/Globulin Ratio 1.1 Lipase 15 L Procalcitonin Urine Color Urine Appearance Urine pH Ur Specific [place] Urine Protein Urine Glucose (UA) Urine Ketones Urine Occult Blood Urine Nitrate Urine Bilirubin Urine Urobilinogen Ur Leukocyte Esterase Urine RBC Urine WBC Ur Squamous Epith Cells Urine Bacteria Ur Culture Indicated? COVID-19 PCR 11/20/19 11/20/19 11/20/19 13:32 14:04 15:40 WBC RBC Hgb Hct MCV MCH MCHC RDW Plt Count Neut % (Auto) Lymph % (Auto) [place] % (Auto) Eos % (Auto) Baso % (Auto) Neut # (Auto) Lymph # (Auto) [place] # (Auto) Eos # (Auto) Baso # (Auto) PT 12.5 INR 1.1 APTT 32 Sodium Potassium Chloride Carbon Dioxide BUN Creatinine Estimated GFR BUN/Creatinine Ratio Glucose Lactate Calcium Total Bilirubin AST ALT Alkaline Phosphatase Total Protein Albumin Globulin Albumin/Globulin Ratio Lipase Procalcitonin 4.12 H Urine Color Urine Appearance Urine pH Ur Specific [place] Urine Protein Urine Glucose (UA) Urine Ketones Urine Occult Blood Urine Nitrate Urine Bilirubin Urine Urobilinogen Ur Leukocyte Esterase Urine RBC Urine WBC Ur Squamous Epith Cells Urine Bacteria Ur Culture Indicated? COVID-19 PCR Not detected 11/20/19 11/20/19 11/20/19 16:26 16:30 17:05 WBC RBC Hgb Hct MCV MCH MCHC RDW Plt Count Neut % (Auto) Lymph % (Auto) [place] % (Auto) Eos % (Auto) Baso % (Auto) Neut # (Auto) Lymph # (Auto) [place] # (Auto) Eos # (Auto) Baso # (Auto) PT INR APTT Sodium 133 L Potassium 3.2 L Chloride 95 L Carbon Dioxide 29 BUN 56 H Creatinine 1.43 H Estimated GFR 38.7 L BUN/Creatinine Ratio 39.2 H Glucose 128 H Lactate 2.9 H Calcium 8.4 Total Bilirubin AST ALT Alkaline Phosphatase Total Protein Albumin Globulin Albumin/Globulin Ratio Lipase Procalcitonin Urine Color Yellow Urine Appearance Cloudy Urine pH 5.0 Ur Specific [place] 1.010 Urine Protein 1+ H Urine Glucose (UA) Negative Urine Ketones Negative Urine Occult Blood 1+ H Urine Nitrate Negative Urine Bilirubin Negative Urine Urobilinogen 0.2 Ur Leukocyte Esterase Negative Urine RBC None seen Urine WBC 1-5/hpf Ur Squamous Epith Cells 1-5 /hpf Urine Bacteria Few (2-10) H Ur Culture Indicated? Cult not indicated COVID-19 PCR 11/21/19 11/21/19 06:20 06:20 WBC 11.2 H RBC 3.81 L Hgb 11.6 L Hct 35.3 L MCV 92.6 MCH 30.5 MCHC 32.9 RDW 13.0 Plt Count 322 Neut % (Auto) 85.3 H Lymph % (Auto) 9.3 L [place] % (Auto) 5.4 Eos % (Auto) 0.0 L Baso % (Auto) 0.0 Neut # (Auto) 9500 H Lymph # (Auto) 1000 L [place] # (Auto) 600 Eos # (Auto) 0 Baso # (Auto) 0 PT INR APTT Sodium 132 L Potassium 3.6 Chloride 101 Carbon Dioxide 25 BUN 41 H Creatinine 0.93 Estimated GFR > 60.0 BUN/Creatinine Ratio 44.1 H Glucose 139 H Lactate Calcium 7.9 L Total Bilirubin 0.8 AST 65 H ALT 67 H Alkaline Phosphatase 132 H Total Protein 5.9 L Albumin 2.8 L Globulin 3.1 Albumin/Globulin Ratio 0.9 L Lipase Procalcitonin Urine Color Urine Appearance Urine pH Ur Specific [place] Urine Protein Urine Glucose (UA) Urine Ketones Urine Occult Blood Urine Nitrate Urine Bilirubin Urine Urobilinogen Ur Leukocyte Esterase Urine RBC Urine WBC Ur Squamous Epith Cells Urine Bacteria Ur Culture Indicated? COVID-19 PCR Assessment & Plan Post-op Postoperative Procedures: Procedures Operation Date: 11/20/19 18:00 Actual Procedures Side Surgeon p Laparoscopic Cholecystectomy CONVERTED TO OPEN CHOLECYSTECTOMY Brandyn Busch MD Postoperative status narrative: 49-year-old woman postoperative day 1 status post open subtotal cholecystectomy for necrotic perforated gallbladder doing well. Her sepsis and acute kidney injury are resolving. -low-fat diet -remove Chua catheter -continue Josh drain and drain teaching -out of bed to chair and ambulate. -continue ciprofloxacin and Flagyl for a 5 day course -SCDs and Lovenox Quality VTE Deep Vein Thrombosis/Pulmonary Embolism Present on Admission: No
[2019-11-21] MEDS: POTASSIUM CHLORIDE 40 MEQ in SODIUM CHLORIDE 0.9% 500 ML 130 ML IV (09:16)
[2019-11-21] MEDS: ENOXAPARIN 40 MG/0.4 ML SYRINGE SUBCUT (09:16)
[2019-11-21] MEDS: NICOTINE 21 MG PATCH TOP (09:18)
[2019-11-21] MEDS: lisinopriL 10 MG TABLET PO (09:18)
--- NOTE | 2019-11-21 12:11 | CM.IDA ---
Initial DCP Assessment Note: Pt is a 49 yo female, resident of [place]. Patient is POD#1 from an open pako performed by Dr Busch PCP: Gordo Quintana Payer: Antolin GRIFFITHS Met w/pt this morning, introduced role. 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 She feels confident about her return home when medically cleared, her is home and available to assist. Patient hopes to get up w/nursing or therapy team soon to see how she is able to move today. No barriers expected to safe DC back home when medically cleared for such DC planning team will be following closely in case any DC needs or concerns arise. OBDULIA Villalta Discharge Planning/Care Management CM Discharge Assessment Start: 11/21/19 12:06 Freq: Status: Active Protocol: Document 11/21/19 12:06 MARITZA (Rec: 11/21/19 12:11 MARITZA [id number]) Discharge Planning Assessment Assigned Criminal Justice Lawyer OBDULIA Polanco DPOA/Assigned Designee Name Juan Carlos Orantes, spouse Contact Information cell [phone] Advance Directives? Yes History Provided By Patient Prior Living Arrangements House Household Members spouse Type of transporation used prior to Drives own vehicle admit Independent with ADL's Yes Is patient alert and oriented? Yes Barriers to Discharge No Discharge Plan Home Transportation Arrangement Spouse Referrals Initiated None needed Whiteboard Updated in Patient Room with Yes name and ext. # of Criminal Justice Lawyer Review Status In Process
[2019-11-21] MEDS: CALCIUM CARBONATE 500 MG TAB 1000 MG PO ×3 (13:12→21:10)
--- NOTE | 2019-11-21 15:54 | PC.NURSE ---
Patient A/Ox3, castañeda removed, patient tolerated well. Abdominal dsg, CDIx2, RENETTA drain is patent and draining dark thin liquid. Patient c/o heartburn post meal, TUMs administered, patient reports relief, denies N/V. Patient denies dizziness with movement, SBA with FWW to the restroom. Patient able to void post castañeda removal. SCD's on. Patient reports abdominal pain increases with movement but remains between a 2-5 when at rest. Lung sounds clear, diminished in bases. Patient instructed on IS, verbalized understanding and is using. Patient on 2L NC, removed for titration, patient tolerating well, remains 91-93%. Call light in reach.
[2019-11-21] MEDS: DOCUSATE 100 MG CAPSULE PO (21:05)
[2019-11-21] MEDS: SODIUM CHLORIDE 0.9% 1,000 ML 100 ML IV (21:10)
[2019-11-22] VITALS (9 sets, daily range): BP systolic 120–146; BP diastolic 73–92; PULSE 65–76; RESP 16–19; TEMP 36.4–36.9; O2SAT 93–97
[2019-11-22] MEDS: HYDROMORPHONE 0.5 MG INJ IV (02:08)
[2019-11-22] MEDS: CALCIUM CARBONATE 500 MG TAB 1000 MG PO ×4 (02:11→23:29)
[2019-11-22] MEDS: CIPROFLOXACIN 400 MG/200 ML PIGGYBACK 200 MG IV ×2 (02:13→15:50)
[2019-11-22] MEDS: metroNIDAZOLE 500 MG/100 ML PIGGYBACK 100 MG IV ×3 (05:30→21:13)
[2019-11-22 05:59] LABS: Add Manual Diff / Slide Review NO; Basophils Absolute Auto 0 /uL (0-100); Basophils Percent Auto 0.3 % (0-2); Eosinophils Absolute Auto 0 /uL (0-450); Eosinophils Percent Auto 0.1 % (2-4); Hematocrit 30.8 % (36-46); Hemoglobin 10.4 g/dL (12.0-16.0); Lymphocytes Absolute Auto 2200 /uL (1100-4500); Lymphocytes Percent Auto 18.1 % (25-40); Mean Corpuscular HGB Conc 33.8 % (30-36); Mean Corpuscular Volume 91.7 fL (80-100); Monocytes Absolute Auto 1000 /uL (0-900); Monocytes Percent Auto 8.5 % (3-14); Neutrophils Absolute Auto 8800 /uL (1500-7000); Platelet Count 310 X10^3/uL (150-400); Red Blood Cell Count 3.36 X10^6/uL (4.0-5.2); White Blood Cell Count 12.1 X10^3/uL (4.5-11.0)
[2019-11-22 06:07] LABS: Alanine Aminotransferase 37 IU/L (<35); Albumin 2.7 g/dL (3.5-5.0); Alkaline Phosphatase 104 U/L (38-126); Aspartate Aminotransferase 23 IU/L (14-36); BUN Creatinine Ratio 34.7 (6-22); Bilirubin Total 0.2 mg/dL (0.2-1.3); Blood Urea Nitrogen 25 mg/dL (7-17); Calcium 7.9 mg/dL (8.4-10.2); Carbon Dioxide 25 mmol/L (22-32); Chloride 104 mmol/L (98-107); Estimated Glomerular Filt Rate > 60.0 mL/min (>60); Globulin 2.8 g/dL (1.7-4.1); Glucose 112 mg/dL (70-100); HEMOLYSIS < 15 (0-50); Sodium 134 mmol/L (137-145); Total Protein 5.5 g/dL (6.3-8.2)
[2019-11-22] MEDS: OXYCODONE IR 5 MG TABLET PO ×3 (06:40→18:33)
--- NOTE | 2019-11-22 07:46 | PM.PN.1 ---
Subjective Subjective Date Patient Seen: 11/22/19 Time Patient Seen: 07:46 Interval history: No acute events over night. Pt c/o severe heartburn, resolved by TUMs but recurrent. She is not on a PPI. She denies nausea/vomiting. She is passing gas/stool. Pain is controlled. Exam Vital Signs (past 8 hours): - 11/22/19 03:41 11/22/19 04:00 Temperature 98.5 F Pulse Rate 66 Respiratory Rate 18 Blood Pressure 120/73 Pulse Oximetry 93 94 Oxygen Delivery Method Room Air Oxygen Flow Rate 0 Narrative Exam Narrative: General: adult female alert oriented no acute distress, alert, oriented, relatively comfortable Chest: non tachypneic; normal respirations, satting well on room air Abdomen appropriately tender to palpation right upper quadrant incision staple line clean dry intact. Drain right upper quadrant with dark serous fluid; clearer than yesterday; output volume decreasing. Objective Labs Result Diagrams: 11/22/19 05:40 11/22/19 05:40 Labs: Laboratory Results - last 24 hr 11/22/19 11/22/19 05:40 05:40 WBC 12.1 H RBC 3.36 L Hgb 10.4 L Hct 30.8 L MCV 91.7 MCH 31.0 MCHC 33.8 RDW 13.0 Plt Count 310 Neut % (Auto) 73.0 Lymph % (Auto) 18.1 L [place] % (Auto) 8.5 Eos % (Auto) 0.1 L Baso % (Auto) 0.3 Neut # (Auto) 8800 H Lymph # (Auto) 2200 [place] # (Auto) 1000 H Eos # (Auto) 0 Baso # (Auto) 0 Sodium 134 L Potassium 4.0 Chloride 104 Carbon Dioxide 25 BUN 25 H Creatinine 0.72 Estimated GFR > 60.0 BUN/Creatinine Ratio 34.7 H Glucose 112 H Calcium 7.9 L Total Bilirubin 0.2 AST 23 ALT 37 H Alkaline Phosphatase 104 Total Protein 5.5 L Albumin 2.7 L Globulin 2.8 Albumin/Globulin Ratio 1.0 Assessment & Plan Assessment and plan (1) Acute calculous cholecystitis: Current visit: Yes Status: Acute (2) Sepsis: Qualifiers: Sepsis acute organ dysfunction status: unspecified Sepsis type: sepsis due to unspecified organism Qualified Code(s): A41.9 - Sepsis, unspecified organism Current visit: Yes Status: Acute (3) Morbid obesity: Current visit: No Status: Chronic (4) Heartburn: Current visit: Yes Status: Acute Assessment & Plan narrative: This is a 49-year-old woman who is postop day 2 from an emergency operation for a gallbladder. She had an open subtotal cholecystectomy with a 19 round Josh drain placed in the right upper quadrant. She is gradually improving. Her biliary labs are totally normal, and her white blood cell count is reassuring. Her left shift has resolved and her white count is 12. Her drain continues to put out quite a bit, although the output is decreasing. It is dark serous and murky, which is possibly evidence of a leak from the gallbladder remnant, or just drainage of the remaining fluid from the phlegmon and perforation of the gallbladder. Her main complaint right now is severe heartburn. This may be relative to the inflammation around her gastric outlet, slowing the drainage from her stomach and increasing the risk of reflux and heartburn. I will increase her GI medications to include PPI dose to b.i.d. as well as the Tums she is already on. Will do drain teaching and have her up and around today. Will work on dispo planning, and once she is stable in terms of her labs, and symptoms she will be appropriate for disposition to home. Plan: Increased GI meds to include PPI dose to b.i.d. Ambulate frequent Continue IV antibiotic Changed to low acid diet Drain teaching Pain management Dispo planning Quality VTE Deep Vein Thrombosis/Pulmonary Embolism Present on Admission: No
[2019-11-22] MEDS: PANTOPRAZOLE 40 MG VIAL IV ×2 (08:35→21:13)
[2019-11-22] MEDS: DOCUSATE 100 MG CAPSULE PO ×2 (08:35→21:13)
[2019-11-22] MEDS: NICOTINE 21 MG PATCH TOP (08:35)
[2019-11-22] MEDS: ENOXAPARIN 40 MG/0.4 ML SYRINGE SUBCUT (08:35)
[2019-11-22] MEDS: lisinopriL 10 MG TABLET PO (08:35)
[2019-11-22] MEDS: SODIUM CHLORIDE 0.9% 1,000 ML 100 ML IV ×2 (11:05→21:49)
--- NOTE | 2019-11-22 14:11 | PC.NURSE ---
Patient given a oxycodone for discomfort around 1210 and this does help her discomfort to mid l.abdomen. Dressing to area and around jaz drain are cdi. She is putting out a minimal amount of ss drainage. Up with SBA and did ambulate in the halls earlier without difficulty. Patients main concern and issue is that she is having non-stop indigestion and burning in her throat with water, liquids, and food. into see patient and did order protonix for her, this was given this morning and has not seemed to help. Patient has BT that are hypoactive, abdomen is soft. She is voiding well. No bowel movement yet this shift. Will call Dr. Martinez and see if there is something else patient can have. She has taken tums and this has not worked for patient much either.
--- NOTE | 2019-11-22 14:51 | DI.RAD.S_ITS ---
PROCEDURE: FL BARIUM SWALLOW INDICATIONS: odynophagia COMPARISON: None. FINDINGS: Function: There is markedly decreased esophageal peristalsis. Delayed esophageal clearance. Morphology: Air-contrast images demonstrate diffuse irregular mucosal morphology. Single contrast views show no esophageal strictures, extrinsic mass effects, or diverticula. Limited images of the stomach demonstrate normal appearance. IMPRESSION: Diffuse esophageal mucosal irregularity potentially related to reflux esophagitis although other infectious/inflammatory etiologies in the differential. Please correlate clinically and if necessary, further evaluation could be performed with upper endoscopy. No stricture identified Severe esophageal dysmotility Dictated by: Janusz Kimble M.D. on 11/22/2019 at 16:13 Approved by: Janusz Kimble M.D. on 11/22/2019 at 16:15
[2019-11-22] MEDS: SUCRALFATE 1 GM/10 ML ORAL SUSP PO ×2 (15:48→23:29)
[2019-11-22] MEDS: MAG HYDROX/ALUMINUM/SIMETH SUS 20 ML, LIDOCAINE VISCOUS 2% 15 ML PO (15:48)
[2019-11-22] MEDS: METOCLOPRAMIDE 10 MG/2 ML INJ 5 MG IV ×2 (18:33→23:29)
[2019-11-23] VITALS (11 sets, daily range): BP systolic 142–159; BP diastolic 80–94; PULSE 64–70; RESP 12–20; TEMP 36.1–36.9; O2SAT 94–98
--- NOTE | 2019-11-23 | PATH_ITS ---
[facility] Accession Number: [id number] . 01 Material submitted: . PART A: gastrointestinal site - GASTRIC MUCOSA BIOPSY PART B: duodenum bulb - DUODENAL BULB BIOPSY . 01 Clinical history: . ABD. PAIN X 2 DAYS AND DIARRHEA . 02 Diagnosis: A. Stomach, Biopsy: Gastric antral mucosa with mild chronic, focal active inflammation. Negative for Helicobacter organisms by immunohistochemistry. Negative for intestinal metaplasia. Negative for dysplasia and malignancy. . B. Duodenal Bulb, Biopsy: Duodenal mucosa with foveolar metaplasia, consistent with peptic duodenitis. Negative for active inflammation, features of sprue, dysplasia or malignancy. [facility] 11/27/2019 1227 Local . 02 Electronically signed: . Goran Tejada MD, PhD, Pathologist NPI- [id number] . 01 Gross description: . Part A: GASTRIC MUCOSA BIOPSY: Received in formalin is 1 fragment(s) of mahoney, soft tissue measuring 0.2 x 0.2 x 0.1 cm submitted entirely in 1 cassette(s) Part B: DUODENAL BULB BIOPSY: Received in formalin are 2 fragment(s) of mahoney, soft tissue measuring 0.1 x 0.1 x 0.1 cm to 0.2 x 0.1 x 0.1 cm submitted entirely in 1 cassette(s) /[facility] 11/25/20192024 Local . 02 Microscopic: . A. An immunohistochemical stain was performed to evaluate for Helicobacter organisms and is negative. The control stain showed appropriate reactivity. . * This test was developed and its performance characteristics determined by [employer]. It has not been cleared or approved by the U.S. Food and Drug Administration. The FDA has determined that such clearance or approval is not necessary. This test is used for clinical purposes. It should not be regarded as investigational or for research. . 02 Pathologist provided ICD-10: K29.70, R10.9 . 02 CPT . 294443, 750204, P93802 Performed at: 01 [facility] [address] [id number] MD Isaias Isidro MD Phone: [phone] Performed at: [id number] [place], [place] [id number] MD Angela Mg MD Phone: [phone]
--- NOTE | 2019-11-23 | DI.CT.S_ITS ---
PROCEDURE: CT CHEST WO CON INDICATIONS: INCREASING WHITE CELL COUNT AFTER GANGRENOUS CHOLECYSTECTOMY TECHNIQUE: Noncontrast 5 mm thick sections acquired from the pulmonary apices to the posterior costophrenic angles. 1 mm lung window, 5 mm thick coronal and sagittal and 7 mm axial MIP reformats were then acquired. For radiation dose reduction, the following was used: automated exposure control, adjustment of mA and/or kV according to patient size. COMPARISON: None. FINDINGS: Image quality: Diagnostic. Lungs and pleura: There is a trace right-sided pleural effusion with mild associated posterior right costophrenic angle consolidation. There also is minimal consolidation within the posterior left costophrenic angle. No significant left-sided pleural effusion is identified. Otherwise, the lungs are well-aerated. There is no pneumothorax. Mediastinum: Heart size is normal. A trace pericardial effusion is present, which is of doubtful clinical significance. No mediastinal adenopathy by size criteria. Thoracic aorta and central pulmonary arteries are normal in size. Thickening of the wall of the esophagus is identified that is more prominent involving the mid to distal esophagus. There may be a small hiatal hernia. Bones and chest wall: No suspicious bony lesions. No vertebral body compression fractures. No axillary or supraclavicular adenopathy by size criteria. Thyroid gland is not enlarged were adequately characterized. Abdomen: Please see the dictated report of the abdomen and pelvis from 11/23/19 for complete details. IMPRESSION: 1. Mild posterior costophrenic angle atelectasis (right greater than left) with an associated trace right-sided pleural effusion. Please correlate clinically to exclude superimposed developing pneumonia. 2. No pneumothorax. 3. Mid to distal esophageal wall thickening is nonspecific, but most likely related to chronic reflux esophagitis. The need for upper endoscopy should be based on clinical grounds to exclude other etiologies. Dictated by: Srinivasan Parrish M.D. on 11/23/2019 at 7:48 Approved by: Srinivasan Parrish M.D. on 11/23/2019 at 7:51
[2019-11-23] MEDS: SODIUM CHLORIDE 0.9% 1,000 ML 100 ML IV ×2 (01:18→20:25)
[2019-11-23] MEDS: CIPROFLOXACIN 400 MG/200 ML PIGGYBACK 200 MG IV ×2 (03:17→16:26)
[2019-11-23] MEDS: OXYCODONE IR 5 MG TABLET PO (04:02)
[2019-11-23 05:00] LABS: Alanine Aminotransferase 28 IU/L (<35); Alkaline Phosphatase 91 U/L (38-126); Aspartate Aminotransferase 24 IU/L (14-36); BUN Creatinine Ratio 25.4 (6-22); Bilirubin Total 0.3 mg/dL (0.2-1.3); Blood Urea Nitrogen 18 mg/dL (7-17); Calcium 7.8 mg/dL (8.4-10.2); Carbon Dioxide 27 mmol/L (22-32); Chloride 102 mmol/L (98-107); Estimated Glomerular Filt Rate > 60.0 mL/min (>60); Globulin 2.9 g/dL (1.7-4.1); Glucose 92 mg/dL (70-100); HEMOLYSIS < 15 (0-50); Potassium 3.7 mmol/L (3.4-5.1); Sodium 135 mmol/L (137-145); Total Protein 5.9 g/dL (6.3-8.2)
[2019-11-23 05:06] LABS: Add Manual Diff / Slide Review NO; Basophils Absolute Auto 0 /uL (0-100); Basophils Percent Auto 0.3 % (0-2); Eosinophils Absolute Auto 200 /uL (0-450); Eosinophils Percent Auto 1.1 % (2-4); Hematocrit 33.9 % (36-46); Hemoglobin 11.2 g/dL (12.0-16.0); Lymphocytes Absolute Auto 6000 /uL (1100-4500); Lymphocytes Percent Auto 38.1 % (25-40); Mean Corpuscular Hemoglobin 30.1 PG (26-34); Mean Corpuscular Volume 91.1 fL (80-100); Monocytes Absolute Auto 1300 /uL (0-900); Monocytes Percent Auto 8.2 % (3-14); Neutrophils Absolute Auto 8300 /uL (1500-7000); Neutrophils Percent Auto 52.3 % (50-75); Platelet Count 425 X10^3/uL (150-400); Red Blood Cell Count 3.72 X10^6/uL (4.0-5.2); Red Cell Distribution Width 12.8 % (11.6-14.8); White Blood Cell Count 15.8 X10^3/uL (4.5-11.0)
[2019-11-23] MEDS: METOCLOPRAMIDE 10 MG/2 ML INJ 5 MG IV ×3 (05:23→17:42)
[2019-11-23] MEDS: metroNIDAZOLE 500 MG/100 ML PIGGYBACK 100 MG IV ×3 (05:23→20:52)
--- NOTE | 2019-11-23 05:28 | PC.NURSE ---
Space out GI meds such as Reglan, Sulcarafate, and Tums per Dr. Serrano to see effectiveness of each medication. Pt reports feeling like the Tums helps with her heart burn best but only for a short period of time. No diarrhea this shift; Passing Gas Kept NPO after Midnight. b/l SCDs on Josh drain in place New IV inserted, pt accidentally pulled out previous IV. NS@100mL/hr
--- NOTE | 2019-11-23 06:11 | DI.CT.S_ITS ---
PROCEDURE: CT ABDOMEN PELVIS W CON INDICATIONS: increasing WBC post gangrenous cholecystectomy TECHNIQUE: After the administration of oral and intravenous contrast, 5 mm thick sections acquired from the diaphragms to the symphysis. 5 mm thick coronal and sagittal reformats were performed. For radiation dose reduction, the following was used: automated exposure control, adjustment of mA and/or kV according to patient size. COMPARISON: [facility], CT, CT ABDOMEN PELVIS W CON, 11/20/2019, 15:17. [facility], CT, ABDOMEN/PELVIS WITH CONTRAST, 08/24/2014, 11:57. FINDINGS: Image quality: Diagnostic. ABDOMEN: Lung bases: There is a trace right-sided pleural effusion with associated mild atelectasis within the posterior costophrenic angle. There also is mild atelectasis within the left posterior costophrenic angle. Heart size is normal. Solid organs: The liver is normal in size. No focal liver lesions are identified. The gallbladder is surgically absent. Surgical drainage catheters are identified within the gallbladder fossa. There is minimal fluid within this region. No intrahepatic or extrahepatic biliary dilatation is appreciated. The portal vein is patent. The spleen, adrenals, pancreas, and kidneys are within normal limits. An extrarenal pelvis on the right is incidentally noted. Peritoneum and bowel: There is wall thickening involving the distal esophagus. There also is focal wall thickening involving the distal stomach with edema within the adjacent mesentery. The duodenum is unremarkable. Surgical clips are identified along the posterior wall of the duodenum versus high attenuation residual oral contrast from previous study within the bowel. The small bowel loops are nondilated. There also is high density contrast material within the colon, which does result in suboptimal evaluation of the colon, particularly involving the cecum. The appendix is not evident. A small amount of free fluid is seen within the right upper quadrant with associated minimal pneumoperitoneum, which is felt to be related to recent surgery. No drainable or loculated fluid collections are appreciated. Nodes and vessels: No retroperitoneal or mesenteric adenopathy. Aorta and inferior vena cava are normal in caliber. Bones: No acute fracture or suspicious osseous lesion is identified. Other: Subcutaneous edema is identified overlying the right upper quadrant with areas of subcutaneous emphysema. A row of surgical ana lilia is identified along the skin within this region, compatible with recent surgery. PELVIS: Genitourinary: Bladder wall thickness is normal. A small amount of intraluminal air is identified within the urinary bladder, which may be related to recent catheterization. No Chua catheter is identified, at this time. The uterus and ovaries are not adequately evaluated on CT, but appear to be normal in size. Miscellaneous: No inguinal hernias or adenopathy. No free fluid or loculated fluid collection is seen within the pelvis. Areas of subcutaneous edema are evident within it the lateral margins of the pelvic region. Bones: No suspicious bony lesions. No acute pelvic fractures are evident. Severe degenerative changes of both hips are noted. IMPRESSION: 1. Interval cholecystectomy with placement of a surgical drainage catheter within the right upper quadrant. A very small amount of free fluid is identified within this region, which is probably related to the patient's recent surgery. However, no loculated fluid collections are appreciated. 2. Mild wall thickening involving the distal stomach probably represents secondary gastritis from the patient's recent cholecystitis. However, other etiologies cannot be completely excluded such as ulcerative gastritis or a gastric lesion. Clinical correlation is recommended. The need for followup imaging should be based on clinical grounds. 3. Thickening of the distal esophagus is similar to the previous exam and may be related to chronic reflux esophagitis. 4. No bowel obstruction. 5. Minimal air within the urinary bladder probably is related to recent catheterization. However, this appearance can be seen in the setting of cystitis and clinical correlation is recommended. Dictated by: Srinivasan Parrish M.D. on 11/23/2019 at 7:40 Approved by: Srinivasan Parrish M.D. on 11/23/2019 at 7:47
[2019-11-23] MEDS: FAMOTIDINE 20 MG/50 ML PIGGYBACK 200 MG IV ×2 (06:22→19:38)
[2019-11-23] MEDS: SUCRALFATE 1 GM/10 ML ORAL SUSP PO ×3 (06:22→17:42)
--- NOTE | 2019-11-23 08:46 | PM.PN.1 ---
Subjective Subjective Date Patient Seen: 11/23/19 Time Patient Seen: 11:01 Interval history: Pt c/o severe odynophagia, diarrhea. Pain is fairly well controlled other than the odynophagia. She is having pain with eating or drinking anything. Tums has helped. PPI and sucralfate do not seem to have helped much per the patient. Exam Vital Signs (past 8 hours): - 11/23/19 03:45 11/23/19 04:00 11/23/19 08:00 Temperature 98.4 F 97.8 F Pulse Rate 69 64 Respiratory Rate 18 16 Blood Pressure 143/84 H 143/81 H Pulse Oximetry 94 97 97 Oxygen Delivery Method Room Air Oxygen Flow Rate 0 Narrative Exam Narrative: General: adult female alert oriented no acute distress, alert, oriented, relatively comfortable Chest: non tachypneic; normal respirations, satting well on room air Abdomen appropriately tender to palpation right upper quadrant incision staple line clean dry intact. Drain right upper quadrant with minimal bilioserous fluid; output volume decreasing. Objective Labs Result Diagrams: 11/23/19 04:40 11/23/19 04:40 Labs: Laboratory Results - last 24 hr 11/23/19 11/23/19 04:40 04:40 WBC 15.8 H RBC 3.72 L Hgb 11.2 L Hct 33.9 L MCV 91.1 MCH 30.1 MCHC 33.0 RDW 12.8 Plt Count 425 H Neut % (Auto) 52.3 D Lymph % (Auto) 38.1 D Sharp % (Auto) 8.2 Eos % (Auto) 1.1 L Baso % (Auto) 0.3 Neut # (Auto) 8300 H Lymph # (Auto) 6000 H Sharp # (Auto) 1300 H Eos # (Auto) 200 Baso # (Auto) 0 Sodium 135 L Potassium 3.7 Chloride 102 Carbon Dioxide 27 BUN 18 H Creatinine 0.71 Estimated GFR > 60.0 BUN/Creatinine Ratio 25.4 H Glucose 92 Calcium 7.8 L Total Bilirubin 0.3 AST 24 ALT 28 Alkaline Phosphatase 91 Total Protein 5.9 L Albumin 3.0 L Globulin 2.9 Albumin/Globulin Ratio 1.0 Assessment & Plan Assessment and plan (1) Heartburn: Current visit: Yes Status: Acute (2) Odynophagia: Current visit: Yes Status: Acute (3) Morbid obesity: Current visit: No Status: Chronic (4) Leukocytosis: Current visit: Yes Status: Acute Assessment & Plan narrative: This is a 49 yo woman POD# 3 s/p open pako for gangrenous gall bladder and sepsis. Her LFT's are normal now. Her main concern is odynophagia. She feels she can not eat or drink enough to manage safely at home due to her painful swallowing. Her WBC is increasing today without a clear indication as to why. We will send cultures of her peritoneal fluid, blood, and urine, as well as stool for cdiff. We will CT her to look for an abscess. I will EGD her today to look for a cause of her odynophagia, specifically to rule out esophageal candidiasis. Plan: CT scan chest/abd/pelvis Cultures of blood, urine, peritoneal fluid, and stool EGD today PPI, famotidine, PRN tums, PRN sucralfate COVID-19 COVID-19 status: Negative Time Spent With Patient Time with patient: 15-24 minutes Quality VTE Deep Vein Thrombosis/Pulmonary Embolism Present on Admission: No
[2019-11-23] MEDS: PANTOPRAZOLE 40 MG VIAL IV ×2 (09:00→20:52)
[2019-11-23] MEDS: ENOXAPARIN 40 MG/0.4 ML SYRINGE SUBCUT (09:00)
[2019-11-23] MEDS: LACTATED RINGERS 1,000 ML 42 ML IV (11:00)
--- NOTE | 2019-11-23 11:28 | PC.NURSE ---
Addendum entered by Marjorie Sahni R.N. 11/23/19 12:59: Patient back from EGD, states that patient most likely has francoise in her esophagus. She is now getting diflucan iv and will be starting nystatin swish and swollow. Resting comfortably now. Original Note: Patient still experiencing some burning in her throat but this does not seem as bad as yesterday. She just left for her EGD. Dressing to lower abdomen cdi, smaller incision open to air and ana lilia intact. Josh Drain putting out ss drainage, sample sent down to lab for to culture. Urine sample also sent down to lab, we will get a stool sample for r/o cdiff. Patient is on precautions at this time. IVF infusing in l.forearm iv. She is more comfortable this morning.
--- NOTE | 2019-11-23 11:56 | PM.OP.ENDO ---
Operative Date/Time/Diagnoses Date of procedure: 11/23/19 Time of procedure: 11:56 Pre-op diagnosis: odynophagia Post-op diagnosis: other (gastritis, duodenitis, esophagitis with possible candidiasis) Procedure & Clinicians Study performed: Esophagogastroduodenoscopy and biopsies Same procedure as scheduled: Yes Indications: Odynophagia Surgeon: Disha Martinez Procedure Notes SCOAP/Timeout: Performed Procedure in detail: The patient was brought to the room. She was placed under general anesthesia and intubated by Dr. Mendez. She was then placed in left lateral decubitus position with all bony prominences padded. A surgical time-out was performed. Vitals were monitored throughout the procedure and remained stable. A bite block was placed to protect the teeth from the scope. The gastroscope was passed through the bite block and across the tongue, and into the esophagus without incident. A tubular view of the esophagus was obtained, and maintained as the scope was passed down the esophagus into the stomach. The scope was then passed through the stomach and popped through the pylorus into the duodenal bulb, and then flexed into the 2nd part of the duodenum. There was a mild amount of hyperemia in the duodenal bulb. Biopsies were taken for h pylori testing and to rule out hyperplasia. The pylorus appeared fairly normal, and I backed out into the stomach. There was some endoscopic gastritis in the gastric antrum and gastric body. I took biopsies of the gastric mucosa. I then retroflexed and looked up to the hiatus. There was a Hill grade 2 hiatal hernia. I then carissa the scope back out into the esophagus. The entire mid to distal esophagus was coated thickly with shaggy white exudate. The coating peeled off and revealed hyperemic mucosa with punctate foci of bleeding. I power washed to attempt to remove the coating, but it would not wash off. I could only peel it off in chunks. The exudate was sent for culture. The gastroscope was then removed without incident, and the patient was awakened from anesthesia and extubated without incident. The patient tolerated the procedure well and was transferred to the PACU in stable condition. Findings: gastritis and other findings (esophagitis, duodenitis) Specimen(s): other (gastric biopsy, duodenal biopsy, esophageal exudate) Complications: none Impression: Duodenitis, gastritis, esophagitis with possible francoise infection Post-procedure Plan for aftercare: transfer back to . Treat empirically with antifungal. Await biopsy results. Follow up: as needed Disposition: PACU
--- NOTE | 2019-11-23 12:14 | SUR.PHASEII ---
Assumed care from Anamaria to transport pt up to room 210 and left with JACLYN Amador in stable condition.
[2019-11-23] MEDS: lisinopriL 10 MG TABLET PO (12:40)
[2019-11-23] MEDS: FLUCONAZOLE 400 MG/200 ML PIGGYBACK 100 MG IV (12:42)
[2019-11-23 14:01] LABS: Clostridium Difficile Tox PCR Negative for C. diff
[2019-11-23] MEDS: NYSTATIN SUSP 500,000 UNIT/5 ML UDC 500000 UNIT PO ×2 (14:42→20:52)
[2019-11-24] VITALS (7 sets, daily range): BP systolic 132–146; BP diastolic 81–91; PULSE 67–78; RESP 16–18; TEMP 36.4–36.8; O2SAT 95–100
[2019-11-24] MEDS: SUCRALFATE 1 GM/10 ML ORAL SUSP PO ×4 (00:14→17:38)
[2019-11-24] MEDS: METOCLOPRAMIDE 10 MG/2 ML INJ 5 MG IV ×4 (00:14→17:36)
--- NOTE | 2019-11-24 02:24 | PC.NURSE ---
Addendum entered by Viri Lopez R.N. 11/24/19 03:02: States throat discomfort is still at 8/10 so now agreeable to taking pain medication; medicated with Oxycodone. Original Note: Patient seen and assessed at 0020. Is alert and oriented. Reports sore throat so provided ice chips and hard candy for relief; declines need for any pain medication. Breath sounds diminished at bases but CTA with RA sat of 95%. HRR with BP of 149/82 which is consistent with previous readings. Denies nausea. BT present and is passing flatus. Dressing to upper abdomen/around Josh drain is CDI; drain is compressed and intact. Umbilical incision is stapled and SAND DIGGER; well approximated and without redness or drainage. Is able to turn self in bed. Provided SBA when up to bathroom; not using assistive device at this time as patient denies weakness or unsteadiness. Voiding; denies dysuria, frequency or urgency. Bilateral calf SCD's put on at shift change. Fall risk score is moderate; bed alarm not being used as patient is calling for assistance appropriately.
[2019-11-24] MEDS: OXYCODONE IR 5 MG TABLET PO ×2 (03:00→22:52)
[2019-11-24] MEDS: CIPROFLOXACIN 400 MG/200 ML PIGGYBACK 200 MG IV ×2 (03:00→15:44)
[2019-11-24] MEDS: metroNIDAZOLE 500 MG/100 ML PIGGYBACK 100 MG IV ×3 (05:01→22:02)
[2019-11-24 06:02] LABS: Add Manual Diff / Slide Review NO; Basophils Absolute Auto 0 /uL (0-100); Basophils Percent Auto 0.2 % (0-2); Eosinophils Absolute Auto 200 /uL (0-450); Eosinophils Percent Auto 1.6 % (2-4); Hematocrit 34.6 % (36-46); Hemoglobin 11.4 g/dL (12.0-16.0); Lymphocytes Absolute Auto 5000 /uL (1100-4500); Mean Corpuscular HGB Conc 33.1 % (30-36); Mean Corpuscular Hemoglobin 29.9 PG (26-34); Mean Corpuscular Volume 90.3 fL (80-100); Monocytes Absolute Auto 1200 /uL (0-900); Monocytes Percent Auto 7.9 % (3-14); Neutrophils Absolute Auto 8300 /uL (1500-7000); Neutrophils Percent Auto 56.3 % (50-75); Platelet Count 454 X10^3/uL (150-400); Red Blood Cell Count 3.83 X10^6/uL (4.0-5.2); Red Cell Distribution Width 12.9 % (11.6-14.8); White Blood Cell Count 14.7 X10^3/uL (4.5-11.0)
[2019-11-24 06:12] LABS: Alanine Aminotransferase 26 IU/L (<35); Albumin Globulin Ratio 1.1 (1.0-2.8); Alkaline Phosphatase 87 U/L (38-126); Aspartate Aminotransferase 23 IU/L (14-36); BUN Creatinine Ratio 13.6 (6-22); Bilirubin Total 0.2 mg/dL (0.2-1.3); Blood Urea Nitrogen 8 mg/dL (7-17); Calcium 7.8 mg/dL (8.4-10.2); Carbon Dioxide 29 mmol/L (22-32); Chloride 99 mmol/L (98-107); Estimated Glomerular Filt Rate > 60.0 mL/min (>60); Globulin 2.7 g/dL (1.7-4.1); Glucose 96 mg/dL (70-100); HEMOLYSIS < 15 (0-50); Sodium 134 mmol/L (137-145); Total Protein 5.7 g/dL (6.3-8.2)
[2019-11-24] MEDS: FAMOTIDINE 20 MG/50 ML PIGGYBACK 200 MG IV ×2 (06:33→20:25)
[2019-11-24 06:34] LABS: Magnesium 1.6 mg/dL (1.6-2.3)
[2019-11-24] MEDS: POTASSIUM CHLORIDE 60 MEQ in SODIUM CHLORIDE 0.9% 500 ML 88.333 ML IV (06:57)
--- NOTE | 2019-11-24 08:19 | PM.PN.1 ---
Subjective Subjective Date Patient Seen: 11/23/19 Time Patient Seen: 11:01 Interval history: Pt continues to c/o severe odynophagia, although she feels some relief from the oral Nystatin. Abdominal pain is fairly well controlled She does have some difficulty swallowing but is trying to take the full liquid diet as much as she can. Exam Vital Signs (past 8 hours): - 11/24/19 03:02 Temperature 97.6 F Pulse Rate 67 Respiratory Rate 16 Blood Pressure 145/91 H Pulse Oximetry 96 Oxygen Delivery Method Room Air Oxygen Flow Rate 0 Narrative Exam Narrative: General: adult female alert oriented no acute distress, relatively comfortable Chest: non tachypneic; normal respirations, satting well on room air Abdomen appropriately tender to palpation right upper quadrant incision staple line clean dry intact. Drain right upper quadrant with dark bilioserous fluid Objective Labs Result Diagrams: 11/24/19 05:43 11/24/19 05:43 Labs: Laboratory Results - last 24 hr 11/23/19 11/24/19 11/24/19 12:35 05:43 05:43 WBC 14.7 H RBC 3.83 L Hgb 11.4 L Hct 34.6 L MCV 90.3 MCH 29.9 MCHC 33.1 RDW 12.9 Plt Count 454 H Neut % (Auto) 56.3 Lymph % (Auto) 34.0 Haralson % (Auto) 7.9 Eos % (Auto) 1.6 L Baso % (Auto) 0.2 Neut # (Auto) 8300 H Lymph # (Auto) 5000 H Har[place]on # (Auto) 1200 H Eos # (Auto) 200 Baso # (Auto) 0 Sodium 134 L Potassium 3.0 L Chloride 99 Carbon Dioxide 29 BUN 8 Creatinine 0.59 Estimated GFR > 60.0 BUN/Creatinine Ratio 13.6 Glucose 96 Calcium 7.8 L Magnesium Total Bilirubin 0.2 AST 23 ALT 26 Alkaline Phosphatase 87 Total Protein 5.7 L Albumin 3.0 L Globulin 2.7 Albumin/Globulin Ratio 1.1 C. difficile Tox (PCR) Negative for c. diff 11/24/19 05:43 WBC RBC Hgb Hct MCV MCH MCHC RDW Plt Count Neut % (Auto) Lymph % (Auto) [place] % (Auto) Eos % (Auto) Baso % (Auto) Neut # (Auto) Lymph # (Auto) [place] # (Auto) Eos # (Auto) Baso # (Auto) Sodium Potassium Chloride Carbon Dioxide BUN Creatinine Estimated GFR BUN/Creatinine Ratio Glucose Calcium Magnesium 1.6 Total Bilirubin AST ALT Alkaline Phosphatase Total Protein Albumin Globulin Albumin/Globulin Ratio C. difficile Tox (PCR) Assessment & Plan Assessment and plan (1) Esophagitis determined by endoscopy: Current visit: Yes Status: Acute (2) Leukocytosis: Current visit: Yes Status: Acute (3) Odynophagia: Current visit: Yes Status: Acute (4) Acute calculous cholecystitis: Current visit: Yes Status: Acute (5) Morbid obesity: Current visit: No Status: Chronic (6) Essential hypertension: Current visit: No Status: Chronic Assessment & Plan narrative: This is a 49 yo woman POD# 4 s/p open pako for gangrenous gall bladder and sepsis. CT scan, cultures and EGD were done yesterday for increase in WBC and worsening odynophagia. She was found to have a thick white coating in her esophagus consistent with esophagitis, possibly yeast coated by barium from her esophagram. Culture is negative so far for yeast, but Deepika remains the highest suspicion. She was started on fluconazole and nystatin swish/swallow. Cultures for her RENETTA drain fluid are still pending. Plan: Continue IV cipro and flagyl PO flucon Nystatin swish/swallow PPI, famotidine, PRN tums, PRN sucralfate Consult to dietitian to help with food choices (low acid, full liquid, avoid things that cause pain) Dispo pending final culture results and patient able to tolerate enough PO to maintain hydration and nutrition COVID-19 COVID-19 status: Negative Time Spent With Patient Time with patient: 15-24 minutes Quality VTE Deep Vein Thrombosis/Pulmonary Embolism Present on Admission: No
[2019-11-24] MEDS: lisinopriL 10 MG TABLET PO (09:44)
[2019-11-24] MEDS: FLUCONAZOLE 100 MG TABLET 200 MG PO (09:44)
[2019-11-24] MEDS: NYSTATIN SUSP 500,000 UNIT/5 ML UDC 500000 UNIT PO ×3 (09:45→20:25)
[2019-11-24] MEDS: PANTOPRAZOLE 40 MG VIAL IV ×2 (09:45→22:02)
[2019-11-24] MEDS: LACTOBACILLUS ACIDOPHILUS TABLET 1 EACH PO (09:46)
[2019-11-24] MEDS: ENOXAPARIN 40 MG/0.4 ML SYRINGE SUBCUT (09:46)
--- NOTE | 2019-11-24 10:22 | PC.NURSE ---
Day Shift- PIV to left FA burning with potassium infusion. Had NS at 21ml/hr infuse concurrently and ice pack placed to site. No redness or swelling noted to PIV site. Upon reassessment. Pt stated PIV site felt much better, will continue to monitor. Spoke with Dr. Martinez at 0820 for update. Okay to have Magnesium infusion follow when potassium infusion complete.
[2019-11-24] MEDS: CALCIUM CARBONATE 500 MG TAB 1000 MG PO (10:59)
[2019-11-24] MEDS: MAGNESIUM SULFATE 2 GM/50 ML PIGGYBACK IV (17:34)
[2019-11-24] MEDS: SODIUM CHLORIDE 0.9% FLUSH 10 ML IV (22:02)
[2019-11-24] MEDS: SODIUM CHLORIDE 0.9% 250 ML 21 ML IV (22:03)
[2019-11-25] VITALS (11 sets, daily range): BP systolic 128–147; BP diastolic 86–103; PULSE 66–80; RESP 16; TEMP 36.2–37.1; O2SAT 95–99
[2019-11-25] MEDS: SUCRALFATE 1 GM/10 ML ORAL SUSP PO ×5 (00:03→23:33)
[2019-11-25] MEDS: METOCLOPRAMIDE 10 MG/2 ML INJ 5 MG IV ×5 (00:04→23:33)
[2019-11-25] MEDS: CIPROFLOXACIN 400 MG/200 ML PIGGYBACK 200 MG IV ×2 (02:53→14:10)
[2019-11-25] MEDS: metroNIDAZOLE 500 MG/100 ML PIGGYBACK 100 MG IV ×3 (04:53→21:37)
[2019-11-25] MEDS: OXYCODONE IR 5 MG TABLET PO ×3 (04:54→21:36)
[2019-11-25] MEDS: CALCIUM CARBONATE 500 MG TAB 1000 MG PO (04:54)
[2019-11-25 06:10] LABS: Hematocrit 36.3 % (36-46); Mean Corpuscular Volume 90.8 fL (80-100); Platelet Count 570 X10^3/uL (150-400); Red Blood Cell Count 3.99 X10^6/uL (4.0-5.2); White Blood Cell Count 16.6 X10^3/uL (4.5-11.0)
[2019-11-25] MEDS: FAMOTIDINE 20 MG/50 ML PIGGYBACK 200 MG IV ×2 (06:11→19:36)
[2019-11-25 06:12] LABS: Alanine Aminotransferase 43 IU/L (<35); Albumin 3.1 g/dL (3.5-5.0); Albumin Globulin Ratio 1.1 (1.0-2.8); Alkaline Phosphatase 83 U/L (38-126); Aspartate Aminotransferase 48 IU/L (14-36); BUN Creatinine Ratio 11.7 (6-22); Bilirubin Total 0.3 mg/dL (0.2-1.3); Blood Urea Nitrogen 7 mg/dL (7-17); Carbon Dioxide 26 mmol/L (22-32); Chloride 101 mmol/L (98-107); Estimated Glomerular Filt Rate > 60.0 mL/min (>60); Globulin 2.8 g/dL (1.7-4.1); Glucose 105 mg/dL (70-100); HEMOLYSIS 33 (0-50); Potassium 3.3 mmol/L (3.4-5.1); Sodium 135 mmol/L (137-145); Total Protein 5.9 g/dL (6.3-8.2)
[2019-11-25 06:15] LABS: Add Manual Diff / Slide Review YES
[2019-11-25 06:39] LABS: Neutrophils Absolute Manual 10292 /uL (3000-5900); Total Cells Counted 100
[2019-11-25] MEDS: SODIUM CHLORIDE 0.9% FLUSH 10 ML IV ×3 (09:23→21:37)
[2019-11-25] MEDS: FLUCONAZOLE 100 MG TABLET 200 MG PO (09:23)
[2019-11-25] MEDS: LACTOBACILLUS ACIDOPHILUS TABLET 1 EACH PO (09:23)
[2019-11-25] MEDS: ENOXAPARIN 40 MG/0.4 ML SYRINGE SUBCUT (09:25)
[2019-11-25] MEDS: lisinopriL 10 MG TABLET PO (09:25)
[2019-11-25] MEDS: PANTOPRAZOLE 40 MG VIAL IV ×2 (09:26→21:37)
[2019-11-25] MEDS: NYSTATIN SUSP 500,000 UNIT/5 ML UDC 500000 UNIT PO ×3 (09:26→21:37)
[2019-11-25 10:10] LABS: Procalcitonin 0.07 ng/mL (<0.5)
--- NOTE | 2019-11-25 11:00 | PM.PNPO.1 ---
Subjective Subjective Date Patient Seen: 11/25/19 Time Patient Seen: 11:00 Interval history: No acute overnight events. Throat pain remains persistent but was able to tolerate some scrambled eggs this morning. Minimal abdominal pain. No nausea vomiting fever. Exam Vital Signs (past 8 hours): - 11/25/19 04:00 11/25/19 04:10 11/25/19 08:00 Temperature 98.3 F 97.5 F L Pulse Rate 71 73 Respiratory Rate 16 16 Blood Pressure 128/103 H 135/91 H Pulse Oximetry 97 97 96 Oxygen Delivery Method Room Air Oxygen Flow Rate 0 Narrative Exam Narrative: General adult female alert oriented no acute distress Chest nonlabored respiration Abdomen right upper quadrant incision clean dry intact with ana lilia Josh drain with bilious output Objective Labs Result Diagrams: 11/25/19 05:30 11/25/19 05:30 Labs: Laboratory Results - last 24 hr 11/25/19 11/25/19 11/25/19 05:30 05:30 05:30 WBC 16.6 H RBC 3.99 L Hgb 12.0 Hct 36.3 MCV 90.8 MCH 30.0 MCHC 33.0 RDW 13.0 Plt Count 570 H Neut % (Auto) Not Reportable Lymph % (Auto) Not Reportable [place] % (Auto) Not Reportable Eos % (Auto) Not Reportable Baso % (Auto) Not Reportable Lymph # (Auto) Not Reportable [place] # (Auto) Not Reportable Baso # (Auto) Not Reportable Total Counted 100 Seg Neutrophils % 53.0 Band Neutrophils % 9.0 H Lymphocytes % (Manual) 27.0 Monocytes % (Manual) 8.0 Eosinophils % (Manual) 2.0 Metamyelocytes % 1.0 H Neutrophils # (Manual) 03279 H RBC Morphology Not Reportable Sodium 135 L Potassium 3.3 L Chloride 101 Carbon Dioxide 26 BUN 7 Creatinine 0.60 Estimated GFR > 60.0 BUN/Creatinine Ratio 11.7 Glucose 105 H Calcium 8.0 L Total Bilirubin 0.3 AST 48 H ALT 43 H Alkaline Phosphatase 83 Total Protein 5.9 L Albumin 3.1 L Globulin 2.8 Albumin/Globulin Ratio 1.1 Procalcitonin 0.07 Assessment & Plan Post-op Postoperative Procedures: Procedures Operation Date: 11/20/19 18:00 Actual Procedures Side Surgeon p Laparoscopic Cholecystectomy CONVERTED TO OPEN CHOLECYSTECTOMY Brandyn Busch MD Operation Date: 11/23/19 10:45 Actual Procedures Side Surgeon p Esophagogastroduodenoscopy with Biopsy Disha Martinez MD Postoperative status narrative: 49-year-old female postoperative day 5 status post open subtotal cholecystectomy for gangrenous cholecystitis with perforation. # bile leak-suspect she continues to drain bile from the remnant gallbladder given that it was necrotic. Total bilirubin is 0.3 today however the drain contains sekou bile in it and she has white count of 17. Will discuss a potential transfer to [facility] for ERCP and likely stenting of the common bile duct. # esophaitis-continues to have a odynophagia and the EGD demonstrated esophageal candidiasis. Continue nystatin swish and spit and fluconazole. Quality VTE Deep Vein Thrombosis/Pulmonary Embolism Present on Admission: No
[2019-11-25] MEDS: POTASSIUM CHLORIDE 60 MEQ in SODIUM CHLORIDE 0.9% 500 ML 88.333 ML IV (11:47)
--- NOTE | 2019-11-25 11:47 | DIET.PN ---
Dietary Progress Note Assessment: Ms. Orantes is a 49 yo woman s/p open pako for gangrenous gall bladder and sepsis. She was found to have a thick white coating in her esophagus consistent with esophagitis. She reports today improved appetite, but continues to experience painful swallowing. She progressed to soft, low fiber, but reports only tolerating eggs, pudding, hot tea, and cream of chicken soup at this time. She requests a smoothie. HT: 162.56cm WT: 90.7kg BMI: 34.3 Labs: Na: 135 K: 3.3 Ca: 8.0 MNA: 14 Marcelo: 22 Nutrition Diagnosis: Swallowing difficulty r/t DX esophagitis/odynophagia aeb barium swallow x-ray, dehydration, decreased estimated food intake, patient reports painful swallowing. Interventions: 1. Discussed low fiber, low acid MNT. Provided example meal plan and food shopping list. 2. Recommend ONS enlive (20g pro; 3 g fiber) or ensure surgery (18g pro; 2 g fiber) Diet Order: soft, low fiber EER: 1800 dorys (20 dorys/kg); 90 g pro (1g/kg) Monitoring/Evaluations: diet tolerance, ONS tolerance, PO intake, pt requests high protein smoothie.
[2019-11-25 12:17] LABS: INR 1.1 (0.9-1.3); Prothrombin Time 12.6 SECONDS (10.1-12.7)
--- NOTE | 2019-11-25 13:04 | PC.NURSE ---
K-rider paused to admin IV Flagyl and IV Cipro. Will re-start K-rider when Abx complete, or pass on to jennifer shift if not restarted by then. Note left on IV pump re:the same.
--- NOTE | 2019-11-25 20:34 | PC.NURSE ---
pt ambulated in hallways. denied abd pain. gas +. reports throat pain 10/31. dressing cdi. jaz drain intact and compressed.
[2019-11-26] VITALS (9 sets, daily range): BP systolic 122–158; BP diastolic 73–94; PULSE 61–81; RESP 18–92; TEMP 35.9–36.8; O2SAT 95–98
[2019-11-26] MEDS: SODIUM CHLORIDE 0.9% 1,000 ML 125 ML IV ×2 (00:31→09:12)
[2019-11-26] MEDS: CIPROFLOXACIN 400 MG/200 ML PIGGYBACK 200 MG IV (02:54)
[2019-11-26] MEDS: METOCLOPRAMIDE 10 MG/2 ML INJ 5 MG IV ×4 (05:15→23:56)
[2019-11-26] MEDS: metroNIDAZOLE 500 MG/100 ML PIGGYBACK 100 MG IV (05:15)
[2019-11-26] MEDS: FAMOTIDINE 20 MG/50 ML PIGGYBACK 200 MG IV ×2 (06:25→19:26)
[2019-11-26 06:36] LABS: Add Manual Diff / Slide Review NO; Basophils Absolute Auto 100 /uL (0-100); Basophils Percent Auto 0.4 % (0-2); Eosinophils Absolute Auto 400 /uL (0-450); Eosinophils Percent Auto 2.7 % (2-4); Hematocrit 34.7 % (36-46); Hemoglobin 11.8 g/dL (12.0-16.0); Lymphocytes Absolute Auto 4900 /uL (1100-4500); Lymphocytes Percent Auto 30.7 % (25-40); Mean Corpuscular HGB Conc 33.9 % (30-36); Mean Corpuscular Hemoglobin 30.8 PG (26-34); Mean Corpuscular Volume 90.9 fL (80-100); Monocytes Absolute Auto 1400 /uL (0-900); Monocytes Percent Auto 8.6 % (3-14); Neutrophils Absolute Auto 9100 /uL (1500-7000); Neutrophils Percent Auto 57.6 % (50-75); Platelet Count 620 X10^3/uL (150-400); Red Blood Cell Count 3.82 X10^6/uL (4.0-5.2); Red Cell Distribution Width 13.2 % (11.6-14.8); White Blood Cell Count 15.8 X10^3/uL (4.5-11.0)
[2019-11-26 06:50] LABS: Alanine Aminotransferase 43 IU/L (<35); Albumin Globulin Ratio 1.2 (1.0-2.8); Alkaline Phosphatase 82 U/L (38-126); Aspartate Aminotransferase 36 IU/L (14-36); Bilirubin Total 0.2 mg/dL (0.2-1.3); Blood Urea Nitrogen 9 mg/dL (7-17); Calcium 8.2 mg/dL (8.4-10.2); Carbon Dioxide 25 mmol/L (22-32); Chloride 104 mmol/L (98-107); Estimated Glomerular Filt Rate > 60.0 mL/min (>60); Globulin 2.6 g/dL (1.7-4.1); Glucose 99 mg/dL (70-100); HEMOLYSIS < 15 (0-50); Potassium 3.6 mmol/L (3.4-5.1); Sodium 136 mmol/L (137-145); Total Protein 5.6 g/dL (6.3-8.2)
--- NOTE | 2019-11-26 08:36 | P.PN_ITS ---
Subjective Subjective Date Patient Seen: 11/26/19 Time Patient Seen: 08:36 Interval history: Feeling well. Tolerated solid food yesterday improving esophageal discomfort. No nausea vomiting Exam Vital Signs (past 8 hours): - 11/26/19 03:00 11/26/19 05:00 Temperature 97.4 F L Pulse Rate 74 Respiratory Rate 18 Blood Pressure 143/86 H Pulse Oximetry 95 95 Oxygen Delivery Method Room Air Oxygen Flow Rate 0 Narrative Exam Narrative: General adult female alert oriented no acute distress Chest nonlabored respirations Abdomen right upper quadrant incision clean dry intact with ana lilia RENETTA drain with bilious output Objective Labs Result Diagrams: 11/26/19 05:54 11/26/19 05:54 Labs: Laboratory Results - last 24 hr 11/25/19 11/25/19 11/26/19 05:30 12:01 05:54 WBC 15.8 H RBC 3.82 L Hgb 11.8 L Hct 34.7 L MCV 90.9 MCH 30.8 MCHC 33.9 RDW 13.2 Plt Count 620 H Neut % (Auto) 57.6 Lymph % (Auto) 30.7 [place] % (Auto) 8.6 Eos % (Auto) 2.7 Baso % (Auto) 0.4 Neut # (Auto) 9100 H Lymph # (Auto) 4900 H [place] # (Auto) 1400 H Eos # (Auto) 400 Baso # (Auto) 100 PT 12.6 INR 1.1 Sodium Potassium Chloride Carbon Dioxide BUN Creatinine Estimated GFR BUN/Creatinine Ratio Glucose Calcium Total Bilirubin AST ALT Alkaline Phosphatase Total Protein Albumin Globulin Albumin/Globulin Ratio Procalcitonin 0.07 11/26/19 05:54 WBC RBC Hgb Hct MCV MCH MCHC RDW Plt Count Neut % (Auto) Lymph % (Auto) [place] % (Auto) Eos % (Auto) Baso % (Auto) Neut # (Auto) Lymph # (Auto) [place] # (Auto) Eos # (Auto) Baso # (Auto) PT INR Sodium 136 L Potassium 3.6 Chloride 104 Carbon Dioxide 25 BUN 9 Creatinine 0.60 Estimated GFR > 60.0 BUN/Creatinine Ratio 15.0 Glucose 99 Calcium 8.2 L Total Bilirubin 0.2 AST 36 ALT 43 H Alkaline Phosphatase 82 Total Protein 5.6 L Albumin 3.0 L Globulin 2.6 Albumin/Globulin Ratio 1.2 Procalcitonin Assessment & Plan Post-op Postoperative Procedures: Procedures Operation Date: 11/20/19 18:00 Actual Procedures Side Surgeon p Laparoscopic Cholecystectomy CONVERTED TO OPEN CHOLECYSTECTOMY Brandyn Busch MD Operation Date: 11/23/19 10:45 Actual Procedures Side Surgeon p Esophagogastroduodenoscopy with Biopsy Disha Martinez MD Postoperative plan narrative: 49-year-old woman postoperative day 6 status post open subtotal cholecystectomy for gangrenous perforated cholecystitis. She has a small bile leak from the gallbladder remenant. -ERCP today at [facility] -NPO/IVF -Will discharge with RENETTA drain -Likely discharge home tomorrow -Continue fluconazole for esophageal candidiasis -SCDs and ambulate Time Spent With Patient Time with patient: Greater than 35 minutes Quality VTE Deep Vein Thrombosis/Pulmonary Embolism Present on Admission: No
[2019-11-26] MEDS: NYSTATIN SUSP 500,000 UNIT/5 ML UDC 500000 UNIT PO ×2 (09:12→21:41)
[2019-11-26] MEDS: CALCIUM CARBONATE 500 MG TAB 1000 MG PO (09:12)
[2019-11-26] MEDS: lisinopriL 10 MG TABLET PO (09:12)
[2019-11-26] MEDS: FLUCONAZOLE 100 MG TABLET 200 MG PO (09:13)
[2019-11-26] MEDS: LACTOBACILLUS ACIDOPHILUS TABLET 1 EACH PO (09:13)
[2019-11-26] MEDS: OXYCODONE IR 5 MG TABLET PO (09:21)
[2019-11-26] MEDS: PANTOPRAZOLE 40 MG VIAL IV ×2 (09:30→21:41)
[2019-11-26] MEDS: SUCRALFATE 1 GM/10 ML ORAL SUSP PO ×3 (11:47→23:56)
[2019-11-26] MEDS: SODIUM CHLORIDE 0.9% FLUSH 10 ML IV (21:41)
--- NOTE | 2019-11-26 23:46 | PC.NURSE ---
Patient returned from [facility] ERCP w/ 7cm stent, 10fr. denied any pain and nausea. jaz drain had bile fluid 100cc. independent in room. notified Dr. Francisco, resume previous orders. pt tolerated her low residue diet for dinner.
[2019-11-27] MEDS: SODIUM CHLORIDE 0.9% 1,000 ML 125 ML IV ×2 (01:10→09:33)
[2019-11-27 03:00] VITALS: O2SAT 95
[2019-11-27] MEDS: SUCRALFATE 1 GM/10 ML ORAL SUSP PO (05:32)
[2019-11-27] MEDS: METOCLOPRAMIDE 10 MG/2 ML INJ 5 MG IV (05:32)
[2019-11-27 05:59] VITALS: BP 136/71; PULSE 73; RESP 18; TEMP 36.3; O2SAT 98
[2019-11-27 06:17] LABS: Add Manual Diff / Slide Review NO; Basophils Absolute Auto 100 /uL (0-100); Basophils Percent Auto 0.5 % (0-2); Eosinophils Absolute Auto 0 /uL (0-450); Eosinophils Percent Auto 0.3 % (2-4); Hematocrit 35.2 % (36-46); Hemoglobin 11.8 g/dL (12.0-16.0); Lymphocytes Absolute Auto 3100 /uL (1100-4500); Lymphocytes Percent Auto 17.7 % (25-40); Mean Corpuscular HGB Conc 33.4 % (30-36); Mean Corpuscular Hemoglobin 30.3 PG (26-34); Mean Corpuscular Volume 90.9 fL (80-100); Monocytes Absolute Auto 1100 /uL (0-900); Monocytes Percent Auto 6.3 % (3-14); Neutrophils Absolute Auto 13100 /uL (1500-7000); Neutrophils Percent Auto 75.2 % (50-75); Platelet Count 726 X10^3/uL (150-400); Red Blood Cell Count 3.88 X10^6/uL (4.0-5.2); Red Cell Distribution Width 13.4 % (11.6-14.8); White Blood Cell Count 17.4 X10^3/uL (4.5-11.0)
[2019-11-27] MEDS: FAMOTIDINE 20 MG/50 ML PIGGYBACK 200 MG IV (06:18)
[2019-11-27 06:24] LABS: Alanine Aminotransferase 38 IU/L (<35); Albumin 3.2 g/dL (3.5-5.0); Albumin Globulin Ratio 1.1 (1.0-2.8); Alkaline Phosphatase 82 U/L (38-126); Aspartate Aminotransferase 29 IU/L (14-36); BUN Creatinine Ratio 17.9 (6-22); Bilirubin Total 0.2 mg/dL (0.2-1.3); Blood Urea Nitrogen 10 mg/dL (7-17); Calcium 8.2 mg/dL (8.4-10.2); Carbon Dioxide 26 mmol/L (22-32); Chloride 104 mmol/L (98-107); Estimated Glomerular Filt Rate > 60.0 mL/min (>60); Globulin 2.8 g/dL (1.7-4.1); Glucose 159 mg/dL (70-100); HEMOLYSIS < 15 (0-50); Sodium 136 mmol/L (137-145)
[2019-11-27] MEDS: OXYCODONE IR 5 MG TABLET PO (06:30)
[2019-11-27 08:00] VITALS: BP 143/90; PULSE 68; RESP 16; TEMP 36.7; O2SAT 98
[2019-11-27] MEDS: SODIUM CHLORIDE 0.9% FLUSH 10 ML IV (09:34)
[2019-11-27] MEDS: LACTOBACILLUS ACIDOPHILUS TABLET 1 EACH PO (09:34)
[2019-11-27] MEDS: lisinopriL 10 MG TABLET PO (09:34)
[2019-11-27] MEDS: FLUCONAZOLE 100 MG TABLET 200 MG PO (09:34)
[2019-11-27] MEDS: PANTOPRAZOLE 40 MG VIAL IV (09:34)
--- NOTE | 2019-11-27 10:12 | PC.NURSE ---
Addendum entered by Marjorie Sahni R.N. 11/27/19 14:15: Pt just discharged to home. iv taken out. out to car with rn. Original Note: Assess- Dr. Busch in and talked to patient, she will be discharging home around 1330 today. Patient will be going home with her Josh drain and this RN will do some teaching with her. Patient has a smaller incision x2, and larger incision under her breast that are with ana lilia and cdi. Librado drain putting out bile colored drainage. Patient up by herself and steady on her feet. She is no longer getting the nystatin swish and swallow. Lying comfortably in bed and she did refuse her nicotine patch.
[2019-11-27 12:00] VITALS: BP 145/84; PULSE 85; RESP 20; O2SAT 96
--- NOTE | 2019-11-27 13:18 | PM.DS.1 ---
History of Present Illness History of Present Illness Chief complaint: Abd. pain x 2 days & diarrea Narrative: Grace is a 49-year-old woman with a history of hypertension and morbid obesity who presents with 2 days of acute cholecystitis. She presented to the emergency room with generalized abdominal pain associated nausea and diarrhea. CT abdomen pelvis demonstrates acute cholecystitis. In addition she had a right upper quadrant ultrasound that confirmed presence of gallstones and edematous gallbladder with pericholecystic fluid and a normal common bile duct. On admission she has mild tachycardia and tachypnea WBC 17 creatinine 1.4 total bilirubin 1.7 Alk Phos 170. She has been unable to eat or drink for the past 2 days and feels very dehydrated. No prior abdominal surgery. Discharge Providers Provider Date of admission: 11/20/19 18:44 Discharge Date: 11/27/19 Primary care physician: Gordo Quintana MD Consults: 11/24/19 08:08 Consult to Dietitian, Adult Routine Comment: odynophagia, low acid diet, need help w diet plan Reason For Exam: esophagitis Discharge provider: Brandyn Busch MD Summary Hospital Course Discharge Diagnosis: gangrenous cholecystitis bile leak esophagitis s/p open cholecystectomy morbid obesity peritonitis Hospital Course: This is a 49-year-old woman who presented with acute cholecystitis and bilious peritonitis. She is taken to the operating room where she underwent a open subtotal cholecystectomy and was found to have a frankly necrotic and perforated gallbladder. A percutaneous drain was left in the gallbladder fossa. Postoperatively her course was significant for severe odynophagia as well as leukocytosis. She underwent a CT of the chest abdomen pelvis which was normal and ultimately was taken for an EGD where she was found to have significant esophageal candidiasis. She was treated for this with fluconazole and her throat pain has significantly improved to the point where she can tolerate regular diet. She had significant bilious output from the abdominal drain and underwent ERCP with stent placement at [facility] for management a bile leak on 11/25 from the remnant gallbladder. On the date of discharge 11/26 she is feeling well. She is afebrile she is tolerating a diet without abdominal pain but she does have an elevated white blood cell count. I discussed this with her and told her that in conjunction with this she is clinically doing well she has undergone a CT of the abdomen pelvis which was negative, she has had cultures which have been negative, and her procalcitonin is normal as well. There does not appear to be any evidence of an infection currently. She will discharge home today with the drain in place and return to clinic in 1 week time for re-evaluation and drain removal. Will repeat laboratory studies at this time. Status at Discharge Cognitive/behavioral status at discharge: oriented Time Spent with Patient Time spent: Greater than 30 minutes Exam Vital Signs (past 8 hours): - 11/27/19 05:59 11/27/19 08:00 11/27/19 12:00 Temperature 97.3 F L 98.1 F Pulse Rate 73 68 85 Respiratory Rate 18 16 20 Blood Pressure 136/71 143/90 H 145/84 H Pulse Oximetry 98 98 96 Oxygen Delivery Method Room Air Oxygen Flow Rate 0 Objective Labs Result Diagrams: 11/27/19 05:46 11/27/19 05:46 Labs: Laboratory Results - last 24 hr 11/27/19 11/27/19 05:46 05:46 WBC 17.4 H RBC 3.88 L Hgb 11.8 L Hct 35.2 L MCV 90.9 MCH 30.3 MCHC 33.4 RDW 13.4 Plt Count 726 H Neut % (Auto) 75.2 H Lymph % (Auto) 17.7 L [place] % (Auto) 6.3 Eos % (Auto) 0.3 L Baso % (Auto) 0.5 Neut # (Auto) 31714 H Lymph # (Auto) 3100 [place] # (Auto) 1100 H Eos # (Auto) 0 Baso # (Auto) 100 Sodium 136 L Potassium 4.0 Chloride 104 Carbon Dioxide 26 BUN 10 Creatinine 0.56 Estimated GFR > 60.0 BUN/Creatinine Ratio 17.9 Glucose 159 H Calcium 8.2 L Total Bilirubin 0.2 AST 29 ALT 38 H Alkaline Phosphatase 82 Total Protein 6.0 L Albumin 3.2 L Globulin 2.8 Albumin/Globulin Ratio 1.1 Discharge Plan Discharge Plan Patient Disposition: Home Discharge orders & Medications Prescriptions: New famotidine [Pepcid] 20 mg tablet 20 mg PO BID Qty: 30 RF: 0 fluconazole 100 mg tablet 100 mg PO DAILY Qty: 7 RF: 0 oxycodone 5 mg tablet 5 mg PO Q4-6H PRN (Reason: pain) Qty: 30 RF: 0 Continued nicotine 21 MG patch 24 hour 21 mg Topical QDAY Qty: 45 RF: 0 lisinopril 10 mg tablet 10 mg PO Q DAY Qty: 90 RF: 3 Follow up/Referrals: Gordo Quintana MD [Primary Care Provider] - Brandyn Busch MD [Physician] - (Follow up 12/03 for drain removal in surgical clinic) Diet/Activity/Treatments Diet: Regular Activity: No lifting >10 lbs for 1 month. May return to work after 12/03 with light duty and no lifting Skin/Wound/Dressing Care Report to your healthcare provider any signs of infection, such as:: increased pain and unusual redness Visit Report/Discharge Packet Instructions: DI for Heart Failure, DI for Cholecystectomy, DI for Laparoscopy, DI for Gastroesophageal Reflux Disease (GERD), DI for Gastritis, DI for Gastric Ulcer, DI for Hiatal Hernia, DI for Prescription Opioid Use, DI for Stomach Polyps, [facility]: Wound Care Visit Report Forms: Patient Portal/API, Stroke Signs & Symptoms Discharge Data Primary Care Provider: Gordo Quintana Discharges patient from system. Discharge Date/Time: 11/27/19 14:10 Quality VTE Deep Vein Thrombosis/Pulmonary Embolism Present on Admission: No
== END 2019-11-27 14:10 | disposition home or self-care (01) | DRG 854 ==
LOC: ED 17:24 → AC 18:46
PROVIDERS: Surgery; Admitting Provider Surgery; Emergency Provider Nurse Practitioner Family; PCP Student in an Organized Health Care Education/Training Program; Referring Provider Nurse Practitioner Family; Visit Provider Surgery
PROC: 0FT44ZZ Resection of Gallbladder, Percutaneous Endoscopic Approach (ICD-10-PCS; CPT 47562; principal; 2019-11-20 18:00)
PROC: 0DJ08ZZ Inspection of Upper Intestinal Tract, Via Natural or Artificial Opening Endoscopic (ICD-10-PCS; CPT 43235; principal; 2019-11-23 10:45)
DX: A41.9 Sepsis, unspecified organism (principal); N17.9 Acute kidney failure, unspecified; K80.00 Calculus of gallbladder with acute cholecystitis without obstruction; K82.A2 Perforation of gallbladder in cholecystitis; B37.81 Candidal esophagitis; K91.89 Other postprocedural complications and disorders of digestive system; E89.89 Other postprocedural endocrine and metabolic complications and disorders; R65.20 Severe sepsis without septic shock; E86.0 Dehydration; K82.A1 Gangrene of gallbladder in cholecystitis; R13.10 Dysphagia, unspecified; K29.80 Duodenitis without bleeding; K29.70 Gastritis, unspecified, without bleeding; K20.9 Esophagitis, unspecified; K21.9 Gastro-esophageal reflux disease without esophagitis; I10 Essential (primary) hypertension; F17.210 Nicotine dependence, cigarettes, uncomplicated; E66.01 Morbid (severe) obesity due to excess calories; Z68.34 Body mass index [BMI] 34.0-34.9, adult; Z03.818 Encounter for observation for suspected exposure to other biological agents ruled out; Z53.31 Laparoscopic surgical procedure converted to open procedure
CPT/HCPCS: 36415; 43239; 47600; 71250; 74177; 74220; 76705; 80048; 80053; 81001; 83605; 83690; 83735; 84145; 85025; 85610; 85730; 87040; 87070; 87075; 87077; 87086; 87186; 87205; 87493; 87635; 93005; 94760; 96361; 96365; 96375; 99222; 99284; C9113; J0330; J0692; J0744; J1100; J1170; J1450; J1650; J1885; J2250; J2270; J2405; J2704; J2765; J3010; J3480; Q9967

== ENCOUNTER → 2019-12-04 11:34 | Outpatient (CLI) | payer OTHER, SELFPAY ==
[2019-11-20 22:59] VITALS: BMI 34.3
[2019-12-04 12:32] LABS: Add Manual Diff / Slide Review NO; Basophils Absolute Auto 200 /uL (0-100); Basophils Percent Auto 1.3 % (0-2); Eosinophils Absolute Auto 300 /uL (0-450); Eosinophils Percent Auto 2.3 % (2-4); Hematocrit 40.1 % (36-46); Hemoglobin 13.3 g/dL (12.0-16.0); Lymphocytes Absolute Auto 3800 /uL (1100-4500); Lymphocytes Percent Auto 29.2 % (25-40); Mean Corpuscular HGB Conc 33.2 % (30-36); Mean Corpuscular Volume 90.4 fL (80-100); Monocytes Absolute Auto 1000 /uL (0-900); Monocytes Percent Auto 7.7 % (3-14); Neutrophils Absolute Auto 7700 /uL (1500-7000); Neutrophils Percent Auto 59.5 % (50-75); Platelet Count 750 X10^3/uL (150-400); Red Blood Cell Count 4.44 X10^6/uL (4.0-5.2); Red Cell Distribution Width 13.1 % (11.6-14.8)
[2019-12-04 12:58] LABS: Alanine Aminotransferase 27 IU/L (<35); Albumin 4.1 g/dL (3.5-5.0); Albumin Globulin Ratio 1.4 (1.0-2.8); Alkaline Phosphatase 152 U/L (38-126); Aspartate Aminotransferase 23 IU/L (14-36); BUN Creatinine Ratio 35.4 (6-22); Bilirubin Total 0.3 mg/dL (0.2-1.3); Blood Urea Nitrogen 23 mg/dL (7-17); Calcium 10.2 mg/dL (8.4-10.2); Carbon Dioxide 26 mmol/L (22-32); Chloride 102 mmol/L (98-107); Estimated Glomerular Filt Rate > 60.0 mL/min (>60); Globulin 2.9 g/dL (1.7-4.1); Glucose 114 mg/dL (70-100); HEMOLYSIS < 15 (0-50); Potassium 4.4 mmol/L (3.4-5.1); Sodium 141 mmol/L (137-145)
== END ==
PROVIDERS: PCP Student in an Organized Health Care Education/Training Program; Referring Provider Surgery; Visit Provider Surgery
DX: D72.829 Elevated white blood cell count, unspecified (principal)
CPT/HCPCS: 36415; 80053; 85025

== ENCOUNTER → 2019-12-18 10:29 | Outpatient (CLI) | payer OTHER, SELFPAY ==
[2019-11-20 22:59] VITALS: BMI 34.3
[2019-12-18 12:08] LABS: Add Manual Diff / Slide Review NO; Basophils Absolute Auto 100 /uL (0-100); Basophils Percent Auto 0.7 % (0-2); Eosinophils Absolute Auto 400 /uL (0-450); Eosinophils Percent Auto 3.2 % (2-4); Hematocrit 39.2 % (36-46); Hemoglobin 13.3 g/dL (12.0-16.0); Lymphocytes Absolute Auto 5500 /uL (1100-4500); Lymphocytes Percent Auto 50.1 % (25-40); Mean Corpuscular Hemoglobin 30.2 PG (26-34); Mean Corpuscular Volume 88.8 fL (80-100); Monocytes Absolute Auto 400 /uL (0-900); Monocytes Percent Auto 3.9 % (3-14); Neutrophils Absolute Auto 4600 /uL (1500-7000); Neutrophils Percent Auto 42.1 % (50-75); Platelet Count 412 X10^3/uL (150-400); Red Blood Cell Count 4.41 X10^6/uL (4.0-5.2); Red Cell Distribution Width 13.3 % (11.6-14.8)
[2019-12-18 12:20] LABS: Alanine Aminotransferase 23 IU/L (<35); Albumin 4.6 g/dL (3.5-5.0); Albumin Globulin Ratio 1.3 (1.0-2.8); Alkaline Phosphatase 115 U/L (38-126); Aspartate Aminotransferase 25 IU/L (14-36); BUN Creatinine Ratio 25.9 (6-22); Bilirubin Total 0.4 mg/dL (0.2-1.3); Blood Urea Nitrogen 22 mg/dL (7-17); Carbon Dioxide 22 mmol/L (22-32); Chloride 108 mmol/L (98-107); Estimated Glomerular Filt Rate > 60.0 mL/min (>60); Globulin 3.5 g/dL (1.7-4.1); Glucose 95 mg/dL (70-100); HEMOLYSIS < 15 (0-50); Potassium 4.1 mmol/L (3.4-5.1); Sodium 141 mmol/L (137-145); Total Protein 8.1 g/dL (6.3-8.2)
== END ==
PROVIDERS: PCP Student in an Organized Health Care Education/Training Program; Referring Provider Surgery; Visit Provider Surgery
DX: K80.00 Calculus of gallbladder with acute cholecystitis without obstruction (principal)
CPT/HCPCS: 36415; 80053; 85025

== ENCOUNTER → 2020-03-20 08:43 | Outpatient (CLI) | payer OTHER, SELFPAY ==
[2019-11-20 22:59] VITALS: BMI 34.3
[2020-03-21 10:45] LABS: COVID19 Sendout Not Detected (Not Detect)
== END ==
PROVIDERS: PCP Student in an Organized Health Care Education/Training Program; Visit Provider Physician Assistant
DX: Z11.59 Encounter for screening for other viral diseases (principal)
CPT/HCPCS: 87635

== ENCOUNTER → 2020-05-18 11:54 | Outpatient (CLI) | payer OTHER, SELFPAY ==
[2019-11-20 22:59] VITALS: BMI 34.3
--- NOTE | 2020-05-18 11:55 | DI.RAD.S_ITS ---
PROCEDURE: XR HIP W PEL IF DONE LT 2V COMPARISON: None. INDICATIONS: referred for pain management FINDINGS: AP view of the pelvis and two views of the left hip show no fracture or dislocation. Both hips have degenerative changes with joint space loss, subchondral sclerosis, and subchondral cystic changes with osteophytes, more severe on the left. Soft tissues are normal. IMPRESSION: Bilateral hip osteoarthritis, worse on the left. Dictated by: Pavel Gomez M.D. on 05/18/2020 at 13:37 Approved by: Pavel Gomez M.D. on 05/18/2020 at 13:39
== END ==
PROVIDERS: PCP Student in an Organized Health Care Education/Training Program; Referring Provider Student in an Organized Health Care Education/Training Program; Visit Provider Student in an Organized Health Care Education/Training Program
DX: M70.62 Trochanteric bursitis, left hip (principal); M16.0 Bilateral primary osteoarthritis of hip
CPT/HCPCS: 73502

== ENCOUNTER → 2020-09-09 09:35 | Outpatient (CLI) | payer OTHER, SELFPAY ==
[2019-11-20 22:59] VITALS: BMI 34.3
[2020-09-09 09:42] LABS: Bacteria Urine None Seen; WBC Urine None Seen (0-5/HPF)
[2020-09-09 10:05] LABS: Appearance Urine UA CLOUDY; Bilirubin Urine UA NEGATIVE (NEGATIVE); Color Urine UA YELLOW; Glucose Urine UA NEGATIVE (Negative); Ketones Urine UA NEGATIVE (NEGATIVE); Leukocyte Esterase Urine UA NEGATIVE (NEGATIVE); Nitrite Urine UA NEGATIVE (Negative); Occult Blood Urine UA 1+ (Negative); Protein Urine UA NEGATIVE (Negative); Specific Gravity Urine UA 1.025 (1.000-1.035); Urobilinogen Urine UA 0.2 E.U./dL (0.2)
[2020-09-09 10:14] LABS: Culture Indicated Urine Cult Not Indicated; RBC Urine 1-5/HPF (0-5/HPF); Squamous Epithelial Cell Urine 5-10 /HPF (0-5/HPF)
[2020-09-09 10:44] LABS: Add Manual Diff / Slide Review NO; Basophils Absolute Auto 100 /uL (0-100); Basophils Percent Auto 0.8 % (0-2); Eosinophils Absolute Auto 200 /uL (0-450); Eosinophils Percent Auto 2.1 % (2-4); Hematocrit 42.8 % (36-46); Hemoglobin 14.5 g/dL (12.0-16.0); Lymphocytes Absolute Auto 4500 /uL (1100-4500); Lymphocytes Percent Auto 45.2 % (25-40); Mean Corpuscular HGB Conc 33.8 % (30-36); Mean Corpuscular Hemoglobin 32.7 PG (26-34); Mean Corpuscular Volume 96.8 fL (80-100); Monocytes Absolute Auto 500 /uL (0-900); Monocytes Percent Auto 5.1 % (3-14); Neutrophils Absolute Auto 4600 /uL (1500-7000); Neutrophils Percent Auto 46.8 % (50-75); Platelet Count 309 X10^3/uL (150-400); Red Blood Cell Count 4.42 X10^6/uL (4.0-5.2); Red Cell Distribution Width 14.2 % (11.6-14.8); White Blood Cell Count 9.9 X10^3/uL (4.5-11.0)
[2020-09-09 10:57] LABS: Hemoglobin A1C% w Est Avg Glu 5.5 % (4.0-6.0)
[2020-09-09 11:26] LABS: BUN Creatinine Ratio 38.7 (6-22); Blood Urea Nitrogen 24 mg/dL (7-17); Calcium 10.2 mg/dL (8.4-10.2); Carbon Dioxide 27 mmol/L (22-32); Chloride 103 mmol/L (98-107); Estimated Glomerular Filt Rate > 60.0 mL/min (>60); Glucose 89 mg/dL (70-100); Potassium 4.4 mmol/L (3.4-5.1); Sodium 139 mmol/L (137-145)
[2020-09-09 11:27] LABS: HEMOLYSIS 83 (0-50)
== END ==
PROVIDERS: PCP Student in an Organized Health Care Education/Training Program; Referring Provider Orthopaedic Surgery; Visit Provider Orthopaedic Surgery
DX: Z01.818 Encounter for other preprocedural examination (principal); Z01.812 Encounter for preprocedural laboratory examination; R73.9 Hyperglycemia, unspecified; N39.0 Urinary tract infection, site not specified
CPT/HCPCS: 36415; 80048; 81001; 83036; 85025; 93005; 93010

== ENCOUNTER → 2020-10-12 11:11 | Outpatient (CLI) | payer OTHER, SELFPAY ==
[2019-11-20 22:59] VITALS: BMI 34.3
[2020-10-12 14:12] LABS: COVID19 -Nasal RAPID Negative (Negative)
== END ==
PROVIDERS: PCP Student in an Organized Health Care Education/Training Program; Visit Provider Physician Assistant
DX: Z20.822 Contact with and (suspected) exposure to COVID-19 (principal)
CPT/HCPCS: 87635

== ENCOUNTER 2020-10-13 06:30 | Day surgery (SDC) | payer OTHER, SELFPAY ==
[2019-11-20 22:59] VITALS: BMI 34.3
[2020-10-13] VITALS (14 sets, daily range): BP systolic 106–151; BP diastolic 60–94; PULSE 80–97; RESP 12–20; TEMP 36.2–37.3; O2SAT 94–99; BMI 37.9
--- NOTE | 2020-10-13 | DI.RAD.S_ITS ---
PROCEDURE: XR PELVIS 1-2V INDICATIONS: INNEROP TECHNIQUE: Intra-operative view of the pelvis and hip acquired. COMPARISON: [facility], CR, XR HIP W PEL IF DONE LT 2V, 10/13/2020, 10:56. FINDINGS: Bones: Intraoperative devices prior to placement of arthroplasty prostheses are in expected positions. No fractures or suspicious bony lesions. Soft tissues: Overlying surgical retractors are present, along with other intraoperative changes. IMPRESSION: Expected intraoperative changes for left hip arthroplasty. Dictated by: Marianela Hargrove MD, PhD on 10/13/2020 at 16:50 Approved by: Marianela Hargrove MD, PhD on 10/13/2020 at 16:50
--- NOTE | 2020-10-13 06:00 | DI.RAD.S_ITS ---
PROCEDURE: XR HIP W PEL IF DONE LT 2V INDICATIONS: post op films total left TECHNIQUE: 2 view(s) of the hip acquired. COMPARISON: [facility], CR, XR PELVIS WITH LATERAL HIP LEFT, 09/09/2020, 9:09. [facility], CR, XR HIP W PEL IF DONE LT 2V, 05/18/2020, 11:58. [facility], CR, XR PELVIS 1-2V, 10/13/2020, 9:13. FINDINGS: Bones: Patient is status post left hip arthroplasty, with hardware components in expected positions. The hip joint appears congruent. The visualized bony structures appear intact. Moderate to severe right hip joint degeneration. Soft tissues: Overlying postoperative changes are noted. No suspicious soft tissue densities. IMPRESSION: Expected immediate postoperative appearance status post placement of left hip arthroplasty. Dictated by: Zuhair Pascal [facility] Interpreted: Alf Stephen MD on 10/13/2020 at 13:22 Approved by: Alf Stephen M.D. on 10/13/2020 at 14:10
[2020-10-13] MEDS: PREGABALIN 75 MG CAPSULE PO (07:05)
[2020-10-13] MEDS: LACTATED RINGERS 1,000 ML 42 ML IV (07:05)
[2020-10-13] MEDS: MELOXICAM 7.5 MG TABLET 15 MG PO (07:05)
[2020-10-13] MEDS: ACETAMINOPHEN 325 MG TABLET 975 MG PO (07:05)
[2020-10-13] MEDS: VANCOMYCIN 1,000 MG/200 ML PIGGYBACK 200 MG IV ×2 (07:11→18:06)
--- NOTE | 2020-10-13 07:38 | PM.PREOP ---
Pre-operative Note COVID-19 COVID-19 status: Negative Interval Note History & Physical reviewed/Exam performed by Physician: Yes Changes to H&P: No
--- NOTE | 2020-10-13 07:38 | PM.OP.1 ---
Operative Date/Time/Diagnoses Date of procedure: 10/13/20 Time of procedure: 07:58 Pre-op diagnosis: left hip OA Post-op diagnosis: same Procedure & Clinicians Procedure: Left total hip arthroplasty posterior approach Same procedure as scheduled: Yes Indications: The patient has had progressively worsening left hip pain with radiographic changes consistent with arthritis. Non-operative management has failed and the patient has requested total hip replacement. The risks, benefits and alternatives to surgery were discussed with the patient prior to proceeding. Risks discussed included, but were not limited to, failure to relieve pain, leg length discrepancy, dislocation, stiffness, infection, nerve damage, deep venous thrombosis, pulmonary embolism, stroke, coma, heart attack, permanent paralysis and , as well as the potential need for eventual revision of the prosthetic. Surgeon: Delmy Arrieta Processing Assistant: Papi Munson Anesthesia Type: General and Spinal Operative Notes Findings: severe left hip osteoarthritis, adequate stability Closure Type: primary Specimen(s): none sent Prosthetic devices, grafts, tissues, transplants, or devices: Arrieta [employer] anthology Size 5 standard offset, R3 48 mm cup, 32+ 0 Oxinium head Applied: drain(s) Estimated Blood Loss (mL): 250 Blood products transfused: none Procedure in detail: The patient was seen in the pre-operative area, where the patient identified the left hip as the operative site and this was marked with my initials. The patient received pre-operative antibiotics and was taken to the operating room and placed on the operative table in the right lateral decubitus position after satisfactory anesthesia. A hospitality house supervisor out was performed. The left leg was prepared from the ankle to the iliac crest with ChloroPrep in the usual fashion and draped through sterile drapes. The hip was approached through an approximately 20 cm incision centered over the greater trochanter and curving gently posteriorly as it went proximally. This was carried sharply to the fascia julia, which was divided and retracted with a self retaining retractor. The trochanteric bursa was excised with care being taken to avoid the sciatic nerve, which was identified and protected throughout the case. The short external rotators were incised and the capsulomuscular flap was raised and tagged for later repair. The hip was dislocated, and a femoral neck osteotomy performed approximately 15 mm above the lesser trochanter. Retractors were placed around the femur. The canal was opened with a box cutting osteotome, followed by a T handled reamer and a lateralizing reamer. The chili pepper broach was then used, followed by sequential broaching until there was good stability of the broach in the femur. Retractors were placed to expose the acetabulum. The labrum and central soft tissues were removed. Reaming was performed initially going up in 2 mm increments, then 1 mm increments until good bite was obtained with an odd sized reamer. The cup 1 mm larger than the last reamer was then inserted using the appropriate anteversion guides. A trial neutral liner was placed. The broach was placed in the canal. A trial head and neck were then placed and the hip relocated and checked for leg length and stability. An intraoperative film confirmed the component position and no evidence of fracture. The patient was stable in the position of sleep, of squatting, and could be put through a range of motion with 45 degrees internal rotation without dislocation. At 90 degrees flexion, internal rotation to 70 was possible before dislocation. This was felt to be satisfactory and the appropriate components were opened, and the trials were removed. The acetabular liner was impacted into position. The final stem was then impacted into the prepared femoral canal. A brief Betadine soak was performed while trialing with head options. The hip was meticulously irrigated with normal saline. Finally the femoral head was impacted onto the stem. The acetabulum was cleared of all material and the hip relocated one final time. The capsulomuscular flap was then repaired to the greater trochanter though an awl hole using the tag sutures. The short external rotators were repaired with a nonabsorbable suture. A deep drain was placed and brought out anteriorly. The fascia julia was closed with Vicryl. The subcutaneous layer was closed with barbed sutures and SteriStrips. An Aquacel Ag dressing was applied and the patient was taken to recovery having tolerated the procedure well. Complications: none Post-operative Condition: stable Disposition: Acute Care Plan for aftercare: The patient will be maintained on a standard total hip replacement protocol with weight bearing as tolerated and posterior hip precautions. The patient will receive Aspirin and sequential compression devices for DVT prophylaxis. The patient will be discharged home when safe for the home environment.
[2020-10-13] MEDS: CLINDAMYCIN 900 MG/50 ML PIGGYBACK 50 MG IV (07:52)
[2020-10-13] MEDS: TRANEXAMIC ACID 1,000 MG VIAL 1000 MG INJ ×2 (08:29→09:52)
--- NOTE | 2020-10-13 08:40 | SUR.OPER ---
Lateral on padded OR bed. Gel axillary roll. Arms secured on padded armboard with pillow supporting top arm. Padded hip positioner braces x4 - anterior and posterior chest and pelvis. Additional gel pad used anterior pelvis. Gel pad under bottom leg from knee to foot and secured with tape over sheet.
[2020-10-13] MEDS: BUPIVACAINE 0.5% W/ EPI (PF) 10 ML VIAL 30 ML INJ (08:51)
[2020-10-13] MEDS: BUPIVACAINE LIPOSOME 266 MG/20 ML VIAL INJ (08:52)
[2020-10-13] MEDS: fentaNYL 100 MCG/2 ML INJ IV ×2 (10:55→11:04)
[2020-10-13] MEDS: OXYCODONE IR 5 MG TABLET PO ×5 (11:04→23:25)
[2020-10-13] MEDS: LACTATED RINGERS 1,000 ML 125 ML IV ×2 (12:13→22:08)
--- NOTE | 2020-10-13 12:36 | PC.NURSE ---
Patient arrived on the floor at 1145. Safe hand off from Brit ANAYA. Patient VSS, lung sounds clear. Patient is on room air at 98%. Patient states pain is 4/10 after Oxycodone from PACU. CMS is intact, pedal pulses palpable. Aquacel dressing is CDI and hemovac is patent and draining. SCD's applied, IS encouraged. Bed is low and locked, call light is within reach, bed alarm is active.
[2020-10-13] MEDS: IBUPROFEN 400 MG TABLET PO ×3 (13:16→20:28)
--- NOTE | 2020-10-13 13:40 | PT.IIE ---
Current Diagnoses Unilateral primary osteoarthritis, left hip (10/13/20) Surgery Performed Operation Date: 10/13/20 07:45 Actual Procedures p Total Hip Arthroplasty(Left) - Delmy Arrieta MD Surgical History (Last Reviewed 08/10/20 @ 08:34 by Alexis Bird DO) History of hysterectomy Medical History (Last Reviewed 08/10/20 @ 08:34 by Alexis Bird DO) Degenerative joint disease of both hips Endometrial hyperplasia Fibroids Hyperparathyroidism Hypertension Neck pain Physical Therapy Inpatient Evaluation/Re-Eval M1 PT/OT-IP Prior Functional Status Start: 10/13/20 15:37 Freq: NEEDED Status: Active Protocol: Document 10/13/20 13:40 AB (Rec: 10/13/20 15:57 AB [id number]) Medical Review Prior Functional Status Medical History Reviewed Yes Communication able to make needs known Mobility and Gait pt stated that she is independent with all mobilities and ambulation without AD Social History Household Members spouse Living Arrangements House Number of Floors (Floors) One Floor Number of Stairs To Enter/Railing? pt plans to go to her mom's house upon d/c and stay in there for ~ 1 week. home set up is regarding mom's house. 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 pt plans to just sponge bathe for now. M2 PT-IP Current Condition Start: 10/13/20 15:37 Freq: NEEDED Status: Active Protocol: Document 10/13/20 13:40 AB (Rec: 10/13/20 15:57 AB [email or web address]) Physical Therapy Current Condition Current Condition Evaluation Date 10/13/20 Treatment Diagnosis s/p L TERESITA posterior approach ; difficulty in walking Onset Date 10/13/20 Precautions Posterior Hip Precautions No Hip Flexion > 90 degrees,No Hip Internal Rotation,No Hip Adduction Weight Bearing Status Weight Bearing Status Weight Bear as Tolerated Allowed Weight Bearing Amount (enter % LLE WBAT or #) (%) M3 PT-IP Subjective Start: 10/13/20 15:37 Freq: NEEDED Status: Active Protocol: Document 10/13/20 13:40 AB (Rec: 10/13/20 15:57 AB [email or web address]) Subjective Physical Therapy Visit Type Type Initial Evaluation Visit Start Time 13:40 Visit Stop Time 14:21 Total Visit Minutes 41 Number of ASSISTED LIVING ASSOCIATE Visits 0 Physical Therapy Visit Comments Patient Comments pt is agreeable to do PT Therapy Pain Assessment Pain When Pain Assessed At Rest Pain Present Pain Present Pain Reported Location left hip Intensity 2 Scale Used Numeric (0 - 10) Pain Management Techniques Apply Cold,Distraction, Modification of Treatment,Re- positioning,Timing of Activity with Medications M4 PT-IP Mobility and Gait Start: 10/13/20 15:37 Freq: NEEDED Status: Active Protocol: Document 10/13/20 13:40 AB (Rec: 10/13/20 15:57 [id number]) PT-Bed Mobility Assessment Supine to Sit Supine to Sit Standby Assistance Sit to Supine Sit to Supine Minimal Assistance PT-Transfer Assessment Sit to and From Stand Sit to and from Stand Moderate Assistance,Maximum Assistance,1 Person Assistance Equipment Transfer Assistive Device Gait Belt,Front Wheeled Walker Orthotic/Prosthetic Devices or Brace: No Comments Mobility Comments pt confirmed sensation on BLE and buttocks. pt's mother in room as well and will assist pt upon dc. educated pt and caregiver regarding L hip posterior precautions. pt completed supine to sit SBA and cues. pt was able to sit on EOB SBA. completed sit to stand mod to max A and cues using FWW mod to max A. attempted ambulation and was able to take steps forward max A with L knee buckling and instructed to step backwards back to bed and pt L knee continues to buckle. pt completed sit to supine min A for LLE elevation to bed. positioned in bed. call light and table placed within reach . pt weepy due to difficulty controlling LLE. informed pt regarding post-op effects affecting motor control of LLE . informed nurse regarding mobility and buckling of LLE. Gait Assessment Gait Gait Assistance Required: Maximum Assistance,1 Person Assist Distance (Feet) 2 Able to Maintain Weight Bearing Status Yes During Gait Assistive Devices Assistive Device Gait Belt,Front Wheeled Walker Orthotic/Prosthetic Devices or Brace: No Gait Deviations General Gait Pattern Decreased Stride Length, Decreased Feet Clearance,Step- to Gait Factors Limiting Gait Function Factors Limiting Gait Function Decreased Activity Tolerance, Decreased Sensation,Decreased Strength,Incoordination, Limited Range of Motion,Pain, Poor Balance,Poor Safety Awareness Comments Gait Comments pls refer to mobility section for details PT-Balance Assessment Sitting Balance and Reactions Static Sitting Balance Ability Good Dynamic Sitting Balance Ability Good Standing Balance and Reactions Static Standing Balance Ability Poor Dynamic Standing Balance Ability Poor Device Used FWW M5 PT-IP Objective Assessments Start: 10/13/20 15:37 Freq: NEEDED Status: Active Protocol: Document 10/13/20 13:40 AB (Rec: 10/13/20 15:57 AB [id number]) Orientation Orientation/Cognition Level of Alertness Alert Orientation Name,Age,Birthday,Month,Date, Year,Day of Week,Place, Situation Language Function Ability No Deficits Noted Safety Awareness Understands Safety Issues Memory Description No Deficits Noted Gross Range of Motion Lower Extremity ROM Assessment Within Functional Limits Strength Lower Extremity Strength Assessment Left Impaired Hip 3-/5 Knee 3+/5 Other Assessments Other Other Assessments (+) L knee buckling during ambulation; decrease motor control on LLE M6 PT-IP Treatment Start: 10/13/20 15:37 Freq: NEEDED Status: Active Protocol: Document 10/13/20 13:40 AB (Rec: 10/13/20 15:57 AB [email or web address]) Physical Therapy Treatment Education Education Provided Precautions,Weight Bearing Status,Post-Op Packet,Safety M7 PT-IP Assessment and Plan Start: 10/13/20 15:37 Freq: NEEDED Status: Active Protocol: Document 10/13/20 13:40 AB (Rec: 10/13/20 15:57 AB [email or web address]) PT Summary Assessment and Plan Potential Rehabilitation Potential Good Status of Condition at Evaluation Evolving Summary Impairments Pain,ROM,Strength,Balance, Coordination,Sensation,Tone, Bed Mobility,Transfers,Gait, Activity Tolerance Assessment Summary pt s/p L TERESITA posterior approach and just had surgery this morning. pt requiring mod to max A with sit to stand and had (+) L knee buckling during ambulation and most possibly due to post-op side effect decrease motor control. expecting to have better motor control tomorrow and pt will be able to progress mobility. informed pt and family regarding caregiver training when appropriate and agreed. will continue to assess progress. Goals Bed Mobility Goal Independent Transfer Goal Independent,Front Wheeled Walker Gait Goal Independent,Front Wheel Walker Gait Distance 200 Days to Meet Goals 3 Frequency of Treatment Frequency Of Treatment Twice a Day Treatment Plan Physical Therapy Treatment Plan Bed Mobility Training,Transfer Training,Gait Training, Therapeutic Exercise,Balance Retraining,Post Op Education, Discharge Planning,Hot or Cold Pack,Neuromuscular Re-ed, Coordination Retraining,Manual Therapy Precautions Posterior Hip Precautions No Hip Flexion > 90 degrees,No Hip Internal Rotation,No Hip Adduction Recommendations To Nursing Amount of Assist Needed PT/OT Assist Only Discharge Recommendations PT Discharge Recommendations Home with Assistance, Outpatient PT Transportation Needs at Discharge Private Vehicle
--- NOTE | 2020-10-13 15:46 | PC.NURSE ---
Patient arrived from PACU A&ox4, Weakness to L leg. Hip precautions as ordered. Hemovac with scant bloody drainage. Aquacel c/d/I. VSS, afebrile. LS CTA, denies passing gas. Denies appetite. BS +x4. Up to BSC this afternoon voiding x2 assist.
[2020-10-13] MEDS: ASPIRIN EC 81 MG TABLET PO (20:27)
[2020-10-13] MEDS: DOCUSATE 100 MG CAPSULE PO (20:28)
[2020-10-13] MEDS: ACETAMINOPHEN 325 MG TABLET 650 MG PO (20:28)
[2020-10-14] VITALS: BP 137/88; PULSE 83; RESP 16; TEMP 36.8; O2SAT 98
[2020-10-14] MEDS: IBUPROFEN 400 MG TABLET PO ×3 (00:30→09:05)
--- NOTE | 2020-10-14 01:31 | PC.NURSE ---
2334: patient is alert and oriented. Breath sounds CTA with RA sat of 98%. HRR. Denies nausea. BT present and patient states she is passing flatus. Denies dysuria, frequency or urgency with urination. Able to move herself in bed. Assisted to BSC with walker and 1 assist. Is able to slide left leg across bed but not able to lift it. Aquacel dressing to left hip is CDI; hemovac is intact and compressed. Noted to have small bruise on mid lower back. Wearing bilateral calf SCD's and has good cap refill and denies numbness. Does complain of 4/10 pain with movement and was medicated with Oxycodone and later with Ibuprofen and is currently asleep. Fall risk score is moderate and bed alarm is activated although patient calls appropriately for assistance.
[2020-10-14] MEDS: OXYCODONE IR 5 MG TABLET PO ×2 (05:00→09:37)
[2020-10-14 06:00] VITALS: BP 132/75; PULSE 77; RESP 16; TEMP 36.6; O2SAT 97
[2020-10-14 06:42] LABS: Hematocrit 34.1 % (36-46); Hemoglobin 11.5 g/dL (12.0-16.0)
--- NOTE | 2020-10-14 07:36 | PM.DS.1 ---
History of Present Illness History of Present Illness Date Patient Seen: 10/14/20 Time Patient Seen: 07:36 Chief complaint: OPB Narrative: Please refer to previously documented HPI and chart. Discharge Providers Provider Discharge Date: 10/14/20 Primary care physician: Gordo Quintana MD Consults: 10/13/20 06:00 Consult to Anesthesiology Routine Comment: Consulting Provider: Anesthesiologist Reason for consultation: Regional block for post operative pain control 10/13/20 07:14 Consult to Respiratory Therapy Evaluate & Treat Comment: Physician Instructions: Evaluate and treat 10/13/20 11:50 Consult to Discharge Planning Routine Comment: Consult to Physical Therapy Evaluate & Treat Comment: Physician Instructions: post op TERESITA protocol Consult to Respiratory Therapy Evaluate & Treat Comment: Physician Instructions: Evaluate and treat Discharge provider: Papi Munson PA-C Summary Hospital Course Discharge Diagnosis: Left hip osteoarthritis Status post total left hip arthroplasty via posterior approach Hospital Course: 50-year-old with the above listed diagnoses appropriately consented for the above listed procedure presented to the OR undergoing said procedure without difficulty or complication that is admitted for rehabilitation overnight with normal convalescence and clearance from PT/OT for safe disposition home prior to discharge her wound was clean, dry and intact with no sign of DVT and ability to void without difficulty. Her left lower extremity was neurovascularly intact as well. At the time of stable discharge the patient verbalized understanding postoperative care instructions and agreed with plan to go home and follow-up in 2 weeks in clinic for re-evaluation or sooner as needed. Status at Discharge Cognitive/behavioral status at discharge: oriented Functional status at discharge: uses cane/walker Overall status at discharge: patient is progressing back to baseline Time Spent with Patient Time spent: Less than 30 minutes Exam Vital Signs (past 8 hours): - 10/14/20 00:00 10/14/20 06:00 Temperature 98.3 F 97.9 F Pulse Rate 83 77 Respiratory Rate 16 16 Blood Pressure 137/88 132/75 Pulse Oximetry 98 97 Oxygen Delivery Method Room Air Oxygen Flow Rate 0 Narrative Exam Narrative: 50-year-old female seen resting comfortably in bed in no apparent distress, alert and oriented x3. Wound was clean dry and intact. She had a regular heart rate and normal inspiratory effort. Her left lower extremity was neurovascularly intact without sign of DVT. Objective Labs Result Diagrams: 10/14/20 06:22 Labs: Laboratory Results - last 24 hr 10/14/20 06:22 Hgb 11.5 L Hct 34.1 L PFSH Medical History Degenerative joint disease of both hips Endometrial hyperplasia Fibroids Hyperparathyroidism Hypertension Neck pain Surgical History History of hysterectomy Family History Grandfather Type 2 diabetes mellitus without complication Grandmother Secondary hypertension, unspecified Mother Age: 73 Sleep apnea, unspecified type Social History household members: spouse Smoking Status: Current every day smoker alcohol intake: current Discharge Assessment & Plan Assessment and Plan Assessment: Left hip osteoarthritis Status post total left hip arthroplasty via posterior approach Plan of Treatment: 1. Discharge home this a.m. if cleared by PT/OT. 2. Weight-bearing as tolerated on left lower extremity with posterior hip precautions 3. Total hip care protocols apply. 4. Follow up in clinic in 2 weeks for re-evaluation or sooner as needed. Discharge Plan Discharge Plan Patient Disposition: Home Provider Discharge Comment: May go this am if cleared by PT/OT Discharge orders & Medications Discharge Orders: Discharge (Order); Ordered 10/14/20 Ordered By: Papi Munson Prescriptions: New acetaminophen 325 mg Tablet 650 mg PO TID Qty: 60 RF: 0 aspirin 81 mg Tablet,Delayed Release (Dr/Ec) 81 mg PO BID Qty: 90 RF: 0 ibuprofen 400 mg Tablet 400 mg PO Q4HR Qty: 60 RF: 0 oxycodone 5 mg Tablet 5 mg PO Q4-5H PRN (Reason: Pain, Moderate (4-6)) Qty: 60 RF: 0 Continued lisinopril 10 mg tablet 10 mg PO Q DAY Qty: 90 RF: 2 Complete Multivitamin Tablet 1 tab PO DAILY RF: 0 cholecalciferol (vitamin D3) 25 mcg (1,000 unit) capsule 25 mcg PO DAILY RF: 0 Discontinued tramadol 50 mg tablet 50 mg PO BID PRN (Reason: pain) Qty: 30 RF: 1 celecoxib [Celebrex] 200 mg capsule 200 mg PO DAILY Qty: 30 RF: 2 Follow up/Referrals: Gordo Quintana MD [Primary Care Provider] - Delmy Arrieta MD [Physician] - (2 weeks) Diet/Activity/Treatments Diet: Diet as Tolerated Activity: The patient will be maintained on a standard total hip replacement protocol with weight bearing as tolerated and posterior hip precautions. Cold/Heat Therapy: Ice 20 min per hour as tolerated. Skin/Wound/Dressing Care Dressing: Keep dressing clean, dry & intact. Call if soiled or satuarated. Visit Report/Discharge Packet Instructions: DI for Hip Replacement Stand Alone Forms: Surgery Discharge Discharge Data Primary Care Provider: Gordo Quintana Attending Provider: Delmy Arrieta Quality VTE Deep Vein Thrombosis/Pulmonary Embolism Present on Admission: No MIPS - Admit Advanced Care Plan / Current Medications Measures: #47 ? Advanced Care Plan Clinician documentation instruction: document at admission. [] I confirmed that the patient's Advance Care Plan is present, code status is documented, or surrogate decision maker is listed in the patient?s medical record. [SATISFIES MIPS PERFORMANCE] If Yes, Stop Here [] The patient?s Advance Care plan is not present because: (select) [MIPS PERFORMANCE EXCEPTION/EXCLUSION] [] I confirmed today that the patient does not wish or was not able to name a surrogate decision maker or provide an Advance Care Plan. [] Hospice care is currently being provided or has been provided this calendar year [] I did NOT confirm today the presence of an Advance Care Plan or surrogate decision maker documented within the patient's medical record. [DOES NOT SATISFY MIPS PERFORMANCE] #130 - Documentation of Current Medications in the Medical Record Clinician documentation instruction: use macro the first time you see a patient. [] I have utilized all available immediate resources to obtain, update, or review the patient?s current medications. [SATISFIES MIPS PERFORMANCE] If Yes, Stop Here [] The patient is not eligible for medication reconciliation; the patient is in an emergent medical situation where delaying treatment would jeopardize the patient?s health. [MIPS PERFORMANCE EXCEPTION/EXCLUSION] [] I did NOT confirm, update or review the patient's current list of medications today. [DOES NOT SATISFY MIPS PERFORMANCE] MIPS - CL Central Venous Catheter Placement Measure: #76 ? Prevention of Central Venous Catheter (CVC) ? Related Bloodstream Infection Clinician documentation instruction: use macro every time you place a central line. [] All elements of Maximal Sterile Barrier Technique, including hand hygiene, skin prep, and sterile ultrasound technique (if used) were followed. [SATISFIES MIPS PERFORMANCE] If Yes, Stop Here [] If ?No?, the medical reason all elements were NOT used for medical reason [] (ex. emergent condition). [] Maximal Sterile Barrier Technique was not followed, no reason provided [DOES NOT SATISFY MIPS PERFORMANCE] MIPS - DC Heart Failure Measures: #5 - Heart Failure (HF): Angiotensin-Converting Enzyme (BRADY) Inhibitor or Angiotensin Receptor Jameson (ARB) Therapy for Left Ventricular Systolic Dysfunction (LVSD) and #8 - Heart Failure (HF): Beta-Jameson Therapy for Left Ventricular Systolic Dysfunction (LVSD) Clinician documentation instruction: use macro at every CHF discharge. [] The patient has current or prior documentation of left ventricular ejection fraction (LVEF) less than 40%, or moderate or severely depressed left ventricular systolic function. Answer both: [SATISFIES MIPS PERFORMANCE] [] The patient was prescribed or already taking an Angiotensin-Converting Enzyme (BRADY) Inhibitor, or Angiotensin Receptor Jameson (ARB). [] The patient was prescribed or already taking a beta-jameson. If Yes to Both, Stop Here [] Patient not prescribed/taking: [MIPS PERFORMANCE EXCEPTION/EXCLUSION] [] BRADY or ARB for medical/patient/system reason(s) including [] (ex. allergy, intolerance, contraindication) [] Beta-jameson for medical/patient/system reason(s) including [] (ex. allergy, intolerance, contraindication) [] Patient not prescribed/taking: [DOES NOT SATISFY MIPS PERFORMANCE] [] BRADY or ARB, no reason given [] Beta-jameson, no reason given
[2020-10-14 08:24] VITALS: BP 131/78; PULSE 76; RESP 16; TEMP 36.5; O2SAT 97
[2020-10-14] MEDS: MULTIVIT,CALC,MINS/IRON/FOLIC 1 TABLET 1 TAB PO (09:01)
[2020-10-14] MEDS: lisinopriL 10 MG TABLET PO (09:02)
[2020-10-14] MEDS: ACETAMINOPHEN 325 MG TABLET 650 MG PO (09:05)
[2020-10-14] MEDS: DOCUSATE 100 MG CAPSULE PO (09:05)
[2020-10-14] MEDS: CHOLECALCIFEROL (VITAMIN D3) 1,000 UNIT TABLET 1000 UNIT PO (09:05)
[2020-10-14] MEDS: ASPIRIN EC 81 MG TABLET PO (09:05)
[2020-10-14] MEDS: SODIUM CHLORIDE 0.9% FLUSH 10 ML IV (09:06)
--- NOTE | 2020-10-14 09:25 | CM.DANOTE ---
DCP/Assessment: Reviewed chart. Patient is a 50yr old female admitted to [facility] for elective left TERESITA performed on 10-13-[address] Arrieta. Primary payor is 1)[facility]. PCP is Dr. Quintana. Met with patient this AM explained CM/SW role. Patient reports that she plans to d/c home today after seen by therapy. Patient plans to stay with her Mother upon d/c. Patient reports that she has outpatient therapy arranged and scheduled to begin on 10-23-20. Patient also indicates that she has access to all needed DME. Therapy evaluation pending. P: Anticipate home today. OBDULIA Alonzo Discharge Planning/Care Management Advanced directive, confirm from FAMILY Start: 10/13/20 12:00 Freq: Q24H Status: Active Protocol: Document 10/13/20 12:00 KLP (Rec: 10/13/20 12:06 KLP [id number]) Advance Directive, confirm on record Time 12:06 Person contacted Grace Copy received No CM Discharge Assessment Start: 10/14/20 09:22 Freq: Status: Active Protocol: Document 10/14/20 09:22 KJS (Rec: 10/14/20 09:25 KJS [id number]) Discharge Planning Assessment Assigned Serger OBDULIA Alonzo Contact Information Juan Carlos Orantes (spouse) ph# [phone] Advance Directives? Yes History Provided By Patient,Medical Record Prior Living Arrangements House Household Members spouse Type of transporation used prior to Drives own vehicle admit Independent with ADL's Yes Caregiver for Another No Comment Patient reports that she has access to all needed DME upon d/c. Patient/Family Preference OP PT Therapy Barriers to Discharge No Discharge Plan Home Transportation Arrangement Family Whiteboard Updated in Patient Room with Yes name and ext. # of Serger Review Status In Process Next Review Type Continued Stay Review
--- NOTE | 2020-10-14 09:50 | PT.IPTN ---
Current Diagnoses Unilateral primary osteoarthritis, left hip (10/13/20) Surgery Performed Operation Date: 10/13/20 07:45 Actual Procedures p Total Hip Arthroplasty(Left) - Delmy Arrieta MD Physical Therapy Treatment Note M2 PT-IP Current Condition Start: 10/13/20 15:37 Freq: NEEDED Status: Active Protocol: Document 10/13/20 13:40 AB (Rec: 10/13/20 15:57 AB [id number]) Physical Therapy Current Condition Current Condition Evaluation Date 10/13/20 Treatment Diagnosis s/p L TERESITA posterior approach ; difficulty in walking Onset Date 10/13/20 Precautions Posterior Hip Precautions No Hip Flexion > 90 degrees,No Hip Internal Rotation,No Hip Adduction Weight Bearing Status Weight Bearing Status Weight Bear as Tolerated Allowed Weight Bearing Amount (enter % LLE WBAT or #) (%) M3 PT-IP Subjective Start: 10/13/20 15:37 Freq: NEEDED Status: Active Protocol: Document 10/14/20 09:50 AB (Rec: 10/14/20 11:31 AB [id number]) Subjective Physical Therapy Visit Type Type Treatment Note Visit Start Time 09:50 Visit Stop Time 10:19 Total Visit Minutes 29 Number of 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 PROCESS ENGINEER Visits 0 Physical Therapy Visit Comments Patient Comments pt is agreeable to do PT Therapy Pain Assessment Pain When Pain Assessed At Rest Pain Present Pain Present Pain Reported Location left hip Intensity 2 Scale Used Numeric (0 - 10) Pain Management Techniques Modification of Treatment,Re- positioning,Timing of Activity with Medications M4 PT-IP Mobility and Gait Start: 10/13/20 15:37 Freq: NEEDED Status: Active Protocol: Document 10/14/20 09:50 AB (Rec: 10/14/20 11:31 AB [id number]) PT-Bed Mobility Assessment Supine to Sit Supine to Sit Standby Assistance Sit to Supine Sit to Supine Standby Assistance PT-Transfer Assessment Sit to and From Stand Sit to and from Stand Standby Assistance,1 Person Assistance,Use of Upper Extremities Equipment Transfer Assistive Device Gait Belt,Front Wheeled Walker Orthotic/Prosthetic Devices or Brace: No Transfers Transfer Destination Bed,Chair Transfer Technique ambulated using FWW Transfer Ability Level of Assist Standby Assistance,1 Person Assistance,Use of Upper Extremities Comments Mobility Comments pt sitting on chair and agreeable to do PT. stated that she has better control of LLE. ambulated in room ~ 20 ft to bed using FWW SBA to CGA . completed sit <>supine SBA. educated on techniques and pt understood. completed sit <>stand x 6 reps SBA initially with cues for techniques and without cues towards the end. completed more ambulation in room 50 ft using FWW SBA to occasionally CGA. (+) L knee giving out but pt was able to control. educated pt on safety and quad activation on LLE. pt understood. pt sat back on chair. positioned on chair. call light and table placed within reach. offered caregiver training but pt declined. stated that she will be able to manage and that her mom had previous hip surgeries and knows what to do . Gait Assessment Gait Gait Assistance Required: Standby Assistance,Contact Guard Assist Distance (Feet) 50 Able to Maintain Weight Bearing Status Yes During Gait Assistive Devices Assistive Device Gait Belt,Front Wheeled Walker Orthotic/Prosthetic Devices or Brace: No Gait Deviations General Gait Pattern Antalgic,Decreased Stride Length,Decreased Feet Clearance M5 PT-IP Objective Assessments Start: 10/13/20 15:37 Freq: NEEDED Status: Active Protocol: Document 10/13/20 13:40 AB (Rec: 10/13/20 15:57 AB [id number]) Orientation Orientation/Cognition Level of Alertness Alert Orientation Name,Age,Birthday,Month,Date, Year,Day of Week,Place, Situation Language Function Ability No Deficits Noted Safety Awareness Understands Safety Issues Memory Description No Deficits Noted Gross Range of Motion Lower Extremity ROM Assessment Within Functional Limits Strength Lower Extremity Strength Assessment Left Impaired Hip 3-/5 Knee 3+/5 Other Assessments Other Other Assessments (+) L knee buckling during ambulation; decrease motor control on LLE M6 PT-IP Treatment Start: 10/13/20 15:37 Freq: NEEDED Status: Active Protocol: Document 10/14/20 09:50 AB (Rec: 10/14/20 11:31 AB [id number]) Physical Therapy Treatment Exercises Exercises Quad Sets Education Education Provided Precautions,Weight Bearing Status,Safety Other Treatments Other Treatment Performed reviewed hip precautions with pt and pt was able to recall. completed seated LAQ's with 5 sec hold M7 PT-IP Assessment and Plan Start: 10/13/20 15:37 Freq: NEEDED Status: Active Protocol: Document 10/14/20 09:50 AB (Rec: 10/14/20 11:31 AB [id number]) PT Summary Assessment and Plan Potential Rehabilitation Potential Good Summary Impairments Pain,ROM,Strength,Balance, Cognition,Bed Mobility, Transfers,Gait,Activity Tolerance Progress Towards Goals Progressing Toward Goals Assessment Summary pt requiring SBA to CGA with ambulation using FWW and plans to go to her mom's home and her mom will assist pt. pt is set up for outpt PT. pt may go home when medically stable. Goals Bed Mobility Goal Independent Transfer Goal Independent,Front Wheeled Walker Gait Goal Independent,Front Wheel Walker Gait Distance 200 Days to Meet Goals 3 Frequency of Treatment Frequency Of Treatment Twice a Day Treatment Plan Physical Therapy Treatment Plan Bed Mobility Training,Transfer Training,Gait Training, Therapeutic Exercise,Balance Retraining,Post Op Education, Discharge Planning,Hot or Cold Pack,Neuromuscular Re-ed, Coordination Retraining,Manual Therapy Precautions Posterior Hip Precautions No Hip Flexion > 90 degrees,No Hip Internal Rotation,No Hip Adduction Recommendations To Nursing Amount of Assist Needed 1 Person Assist Discharge Recommendations PT Discharge Recommendations Home with Assistance, Outpatient PT Transportation Needs at Discharge Private Vehicle
--- NOTE | 2020-10-14 10:43 | PC.NURSE ---
Assess- Patient is a&ox3, given percolone before working with physical therapy, patient did well and will be discharging around 1130. Hip dressing is cdi, hemovac will be taken out soon. Patients ride is here, and she will be leaving at 1130.
== END 2020-10-14 11:48 | disposition home or self-care (01) ==
LOC: OR 06:31 → AC 06:33
PROVIDERS: PCP Student in an Organized Health Care Education/Training Program; Referring Provider Student in an Organized Health Care Education/Training Program; Visit Provider Orthopaedic Surgery
PROC: 0SRB0JZ Replacement of Left Hip Joint with Synthetic Substitute, Open Approach (ICD-10-PCS; CPT 27130; principal; 2020-10-13 07:45)
DX: M16.12 Unilateral primary osteoarthritis, left hip (principal); I10 Essential (primary) hypertension; F17.210 Nicotine dependence, cigarettes, uncomplicated; E66.9 Obesity, unspecified; Z68.37 Body mass index [BMI] 37.0-37.9, adult
CPT/HCPCS: 27130; 36415; 72170; 73502; 85014; 85018; 97116; 97162; 97530; C1776; C9290; J1100; J1170; J2250; J2405; J2704; J3010

== ENCOUNTER → 2021-10-25 10:58 | Outpatient (CLI) | payer OTHER, SELFPAY ==
[2020-10-13 11:52] VITALS: BMI 37.9
[2021-10-25 11:47] LABS: Hematocrit 45.9 % (36-46); Hemoglobin 15.7 g/dL (12.0-16.0); Mean Corpuscular HGB Conc 34.3 % (30-36); Mean Corpuscular Volume 93.2 fL (80-100); Platelet Count 339 X10^3/uL (150-400); Red Blood Cell Count 4.93 X10^6/uL (4.0-5.2); Red Cell Distribution Width 13.3 % (11.6-14.8); White Blood Cell Count 10.5 X10^3/uL (4.5-11.0)
[2021-10-25 11:59] LABS: BUN Creatinine Ratio 33.3 (6-22); Blood Urea Nitrogen 22 mg/dL (7-17); Calcium 10.2 mg/dL (8.4-10.2); Carbon Dioxide 25 mmol/L (22-32); Chloride 102 mmol/L (98-107); Estimated Glomerular Filt Rate > 60.0 mL/min (>60); Glucose 94 mg/dL (70-100); HEMOLYSIS < 15 (0-50); Potassium 4.1 mmol/L (3.4-5.1); Sodium 139 mmol/L (137-145)
[2021-10-25 12:30] LABS: Vitamin D 25 Hydroxy (D3) 52.9 ng/mL (30.0-100.0)
== END ==
PROVIDERS: PCP Student in an Organized Health Care Education/Training Program; Referring Provider Student in an Organized Health Care Education/Training Program; Visit Provider Student in an Organized Health Care Education/Training Program
DX: I10 Essential (primary) hypertension (principal); E55.9 Vitamin D deficiency, unspecified
CPT/HCPCS: 36415; 80048; 82306; 85027

== ENCOUNTER → 2021-12-13 07:41 | Outpatient (CLI) | payer OTHER, SELFPAY ==
[2020-10-13 11:52] VITALS: BMI 37.9
--- NOTE | 2021-12-13 07:43 | DI.MG.S_ITS ---
BILATERAL DIGITAL SCREENING MAMMOGRAM 3D/2D WITH CAD: 12/13/2021 CLINICAL: Routine screening. Comparison is made to exams dated: 11/30/2018 mammogram, 11/18/2017 mammogram, and 07/31/2015 mammogram - [facility]. The tissue of both breasts is predominantly fatty. Current study was also evaluated with a Computer Aided Detection (CAD) system. No significant masses, calcifications, or other findings are seen in either breast. There has been no significant interval change. IMPRESSION: NEGATIVE There is no mammographic evidence of malignancy. A 1 year screening mammogram is recommended. This exam was interpreted at Station ID: [id number]. NOTE: For mammograms, a report in lay terms will be sent to the patient. Approximately 15% of breast malignancies will not be visualized mammographically. In the management of a palpable breast mass, a negative mammogram must not discourage biopsy of a clinically suspicious lesion. Electronically Signed By: Dimple carbone/galileo:12/13/2021 09:21:24 letter sent: Normal Exam ACR BI-RADS Category 1: Negative 3341F
== END ==
PROVIDERS: PCP Student in an Organized Health Care Education/Training Program; Referring Provider Student in an Organized Health Care Education/Training Program; Visit Provider Student in an Organized Health Care Education/Training Program
DX: Z12.31 Encounter for screening mammogram for malignant neoplasm of breast (principal)
CPT/HCPCS: 77063; 77067

== ENCOUNTER 2022-09-24 11:47 | Emergency (ER) | payer OTHER, SELFPAY ==
[2020-10-13 11:52] VITALS: BMI 37.9
[2022-09-24 11:52] VITALS: BP 159/80; PULSE 86; RESP 15; TEMP 37.1; O2SAT 99; BMI 34.0
--- NOTE | 2022-09-24 12:01 | DI.RAD.S_ITS ---
PROCEDURE: XR FINGER LT MIN 2V INDICATIONS: cut finger TECHNIQUE: AP hand, 2 views of the middle finger(s) acquired. COMPARISON: None. FINDINGS: Bones: No fractures or dislocations. No suspicious bony lesions. There is a ring of the ring finger. Soft tissues: No suspicious soft tissue calcifications. IMPRESSION: No radiopaque foreign body or fracture. Dictated by: Pavel Gomez M.D. on 09/24/2022 at 11:41 Approved by: Pavel Gomez M.D. on 09/24/2022 at 11:47
--- NOTE | 2022-09-24 12:03 | ED_ITS ---
HPI - Wound/Laceration <Vicky Etienne PA-C - Last Filed: 09/24/22 13:29> General Chief Complaint: Wound/Laceration Stated Complaint: cut lt hand mid fing with knife Time Seen by Provider: 09/24/22 11:56 Source: patient Mode of arrival: Ambulatory History of Present Illness HPI narrative: 52-year-old female presents with concern for a laceration to her left middle finger sustained while she was working. 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 She states that she is bandaged it multiple times and put a finger caught on but it continues to bleed. She states she is been able to move the finger normally and feels that she does not have any change in sensation she denies any other complaints or concerns. Related Data Home Medications Medication Instructions Recorded Confirmed multivitamin,[id number] 1 tab PO DAILY 06/29/20 11/22/21 (Complete Multivitamin tablet) Previous Rx's Medication Instructions Recorded lisinopril 10 mg tablet 10 mg PO DAILY #90 tabs 10/25/21 Allergies Allergy/AdvReac Type Severity Reaction Status Date / Time Penicillins [PENICILLINS] Allergy Severe rash Verified 09/24/22 11:59 mold [MOLD] Allergy Unknown Verified 09/24/22 11:59 Review of Systems <Vicky Etienne PA-C - Last Filed: 09/24/22 13:29> Review of Systems Narrative: Unremarkable except as noted in the HPI Patient History <Vicky Etienne PA-C - Last Filed: 09/24/22 13:29> Medical History Degenerative joint disease of both hips Endometrial hyperplasia Episodic tension-type headache, not intractable (06/08/15) Fibroids Hyperparathyroidism Hypertension Neck pain Surgical History History of hysterectomy Family History Grandfather Type 2 diabetes mellitus without complication Grandmother Secondary hypertension, unspecified Mother Age: 75 Sleep apnea, unspecified type Social History household members: spouse Smoking Status: Current every day smoker alcohol intake: current Smoking Status: Current every day smoker alcohol intake frequency: holidays/special occasions only Substance Use Type: marijuana Exam <Vicky Etienne PA-C - Last Filed: 09/24/22 13:29> Narrative Exam Narrative: GENERAL: 52 year old patient appears stated age. Well-developed patient, in mild distress, wearing an apron from work. HEAD: Atraumatic. Normocephalic. EYES: Pupils equal round and reactive. Extraocular motions intact. No scleral icterus. No injection or drainage. ENT: Nose without bleeding, purulent drainage. Airway patent. NECK: Trachea midline. CARDIOVASCULAR: Regular rate and rhythm without murmurs, gallops, or rubs. RESPIRATORY: Clear to auscultation. Breath sounds equal bilaterally. No wheezes, rales, or rhonchi. GASTROINTESTINAL: Abdomen nondistended. EXTREMITIES: There is an approximately 1 cm in diameter avulsion/ laceration full-thickness on the patient's left middle finger on the distal pad of the finger that does not affect the nail and does not cross the joint. The bleeding is controlled after removing bandaging and flushing. Continues to ooze very slightly. Movement and function as well as sensation are intact, capillary refill is less than 2 seconds. No edema or joint tenderness. BACK: Nontender without deformity or crepitance. No flank tenderness. NEURO: AOx3. SKIN: Skin is pink warm and dry, well-perfused. See extremities No rash or erythema of visible areas Initial Vital Signs Initial Vital Signs: Vital Signs Temperature 98.7 F 09/24/22 11:52 Pulse Rate 86 09/24/22 11:52 Respiratory Rate 15 09/24/22 11:52 Blood Pressure 159/80 H 09/24/22 11:52 Pulse Oximetry 99 09/24/22 11:52 Oxygen Delivery Method Room Air 09/24/22 11:52 <Carisa Gaona DO - Last Filed: 09/25/22 16:29> Initial Vital Signs Initial Vital Signs: Vital Signs Temperature 98.7 F 09/24/22 11:52 Pulse Rate 86 09/24/22 11:52 Respiratory Rate 15 09/24/22 11:52 Blood Pressure 159/80 H 09/24/22 11:52 Pulse Oximetry 99 09/24/22 11:52 Oxygen Delivery Method Room Air 09/24/22 11:52 Course <Vicky Etienne PA-C - Last Filed: 09/24/22 13:29> Orders Ordered: ED Orders 09/24/22 12:01 XR finger LT min 2V Stat Vital Signs Vital signs: Vital Signs - 8 hr 09/24/22 11:52 Temperature 98.7 F Pulse Rate 86 Respiratory Rate 15 Blood Pressure 159/80 H Pulse Oximetry 99 Oxygen Delivery Method Room Air <Carisa Gaona DO - Last Filed: 09/25/22 16:29> Orders Ordered: ED Orders 09/24/22 12:01 XR finger LT min 2V Stat Vital Signs Vital signs: Vital Signs - 8 hr 09/24/22 11:52 Temperature 98.7 F Pulse Rate 86 Respiratory Rate 15 Blood Pressure 159/80 H Pulse Oximetry 99 Oxygen Delivery Method Room Air MDM - Wound/Laceration <Vicky Etienne PA-C - Last Filed: 09/24/22 13:29> Medical Records Attestation: I reviewed the patient's medical records. Imaging Data Extremity x-ray #1: Radiologist's Impression: [place] [address] XRay Report Signed Patient: Grace Orantes MR#: [id number] : 1970 Acct:[id number] Age/Sex: 52 / F Date of Service: 09/24/22 Loc: ED Accession Number: [id number] ?? Procedure: XR finger LT min 2V Ordering Provider: Vicky Etienne P.A-C PROCEDURE:? XR FINGER LT MIN 2V ? INDICATIONS:? cut finger ? TECHNIQUE:? AP hand, 2 views of the middle finger(s) acquired.? ? COMPARISON:? None. ? FINDINGS:? ? Bones:? No fractures or dislocations.? No suspicious bony lesions.? There is a ring of the ring finger. ? Soft tissues:? No suspicious soft tissue calcifications.? ? IMPRESSION:? No radiopaque foreign body or fracture. ? ? Dictated by: Pavel Gomez M.D. on 09/24/2022 at 11:41 ? ? Approved by: Pavel Gomez M.D. on 09/24/2022 at 11:47?? 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 Exam today is consistent with a full-thickness avulsion, not amenable to suturing patient endorsed bleeding was not well controlled with multiple bandage changes and using a finger caught, however upon arrival to the emergency department bleeding does appear to be fairly well controlled, very slight oozing continues. Bandage with Surgicel dressing and mild pressure wrap, referral to wound care as given the nature of the wound suspect it will take some time to heal and will have to heal by secondary intention. Advised the patient to monitor for signs of infection, work note provided for light duty. L and I paperwork completed during the patient's visit in the ER. Claim #[id number] Discharge Plan Departure Patient Disposition: Home Clinical Impression: Avulsion of skin of finger, Encounter for assessment of work-related causation of injury Activity Restrictions/Additional Instructions: Thank you for letting us be part of your care today in the emergency department. He sustained an injury while at work and unfortunately the type of wound was not amenable to sutures, thankfully your bleeding actually was pretty well controlled by the time he arrived but I did apply a blood stopper type dressing that you can leave on for up to 24 hours. 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 You can cleanse the area with warm soapy water when he cleaned it, you can use topical antibiotic ointment to help with the healing process. I have also referred due to see wound care given the nature of the wound and the work that you do it may be helpful for monitoring and making sure you are healing is going okay. Also completed your L and I paperwork and activity prescription form during your visit. I would like he would be on light duty at work until your wound has healed. Please monitor for signs of infection as we discussed. There is no evidence of an emergent or life threatening illness at this time, but follow up with your doctor in 1-2 days is recommended nonetheless to continue to rule out serious underlying causes of your symptoms. Please call the office for an appointment. Please return to the Emergency Department for any worsening or persistent symptoms. Please take medications as directed. Prescriptions: No Action lisinopril 10 mg tablet 10 mg PO DAILY Qty: 90 3RF Complete Multivitamin Tablet 1 tab PO DAILY Referrals: Gordo Quintana MD [Primary Care Provider] - Armand Jefferson MD [Physician] - (full thickness skin avulsion 1cm to pad of finger, not suturable) Stand Alone Forms: Patient Portal/API <Carisa Gaona DO - Last Filed: 09/25/22 16:29> Cosign ED Attending Shainaature Attestation: I was immediately available in the department for consultation. Documentation has been reviewed.
== END 2022-09-24 13:36 | disposition home or self-care (01) ==
PROVIDERS: Emergency Provider Student in an Organized Health Care Education/Training Program; PCP Student in an Organized Health Care Education/Training Program
DX: S61.213A Laceration without foreign body of left middle finger without damage to nail, initial encounter (principal); W26.0XXA Contact with knife, initial encounter; Y99.0 Civilian activity done for income or pay
CPT/HCPCS: 73140; 99281; 99283

== ENCOUNTER → 2022-11-14 11:48 | Outpatient (CLI) | payer OTHER, SELFPAY ==
[2020-10-13 11:52] VITALS: BMI 37.9
[2022-11-14 12:39] LABS: BUN Creatinine Ratio 31.7 (6-22); Blood Urea Nitrogen 20 mg/dL (7-17); Calcium 9.7 mg/dL (8.4-10.2); Carbon Dioxide 21 mmol/L (22-32); Chloride 103 mmol/L (98-107); Cholesterol 180 mg/dL (140-199); Estimated Glomerular Filt Rate > 60 mL/min (>60); Glucose 98 mg/dL (70-100); HDL Cholesterol 59 mg/dL (40-60); HEMOLYSIS 17 (0-50); LDL Cholesterol Calculated 96 mg/dL (<100); Sodium 137 mmol/L (137-145); Triglycerides 127 mg/dL (35-150)
[2022-11-14 18:51] LABS: Hep C Virus Ab w/Reflex Quant NEGATIVE s/c (NEGATIVE)
== END ==
PROVIDERS: PCP Student in an Organized Health Care Education/Training Program; Referring Provider Student in an Organized Health Care Education/Training Program; Visit Provider Student in an Organized Health Care Education/Training Program
DX: E78.2 Mixed hyperlipidemia (principal); I10 Essential (primary) hypertension; Z11.59 Encounter for screening for other viral diseases
CPT/HCPCS: 36415; 80048; 80061; 86803

== ENCOUNTER → 2022-12-26 08:12 | Outpatient (CLI) | payer OTHER, SELFPAY ==
[2020-10-13 11:52] VITALS: BMI 37.9
--- NOTE | 2022-12-26 08:14 | DI.MG.S_ITS ---
BILATERAL DIGITAL SCREENING MAMMOGRAM 3D/2D WITH CAD: 12/26/2022 CLINICAL: Routine screening. Family history of breast cancer. Comparison is made to exams dated: 12/13/2021 mammogram, 11/30/2018 mammogram, and 11/18/2017 mammogram - [facility]. There are scattered areas of fibroglandular density in both breasts (category b / 25%-50% glandular tissue). Current study was also evaluated with a Computer Aided Detection (CAD) system. No significant masses, calcifications, or other findings are seen in either breast. There has been no significant interval change. IMPRESSION: NEGATIVE There is no mammographic evidence of malignancy. A 1 year screening mammogram is recommended. Based on the Tyrer Cuzick model (a risk assessment model) the patient's lifetime risk is 16.6% and her 10 year risk is 4.9%. According to the ACR, ACS, and NCCN guidelines, an annual breast MRI exam along with mammogram is recommended if the patient's lifetime risk is 20% or greater. This exam was interpreted at Station ID: [id number]. NOTE: For mammograms, a report in lay terms will be sent to the patient. Approximately 15% of breast malignancies will not be visualized mammographically. In the management of a palpable breast mass, a negative mammogram must not discourage biopsy of a clinically suspicious lesion. Electronically Signed By: Paola adams/galileo:12/26/2022 13:51:52 letter sent: Normal Exam ACR BI-RADS Category 1: Negative 3341F
== END ==
PROVIDERS: PCP Pediatrics; Referring Provider Student in an Organized Health Care Education/Training Program; Visit Provider Student in an Organized Health Care Education/Training Program
DX: Z12.31 Encounter for screening mammogram for malignant neoplasm of breast (principal); Z80.3 Family history of malignant neoplasm of breast
CPT/HCPCS: 77063; 77067

== ENCOUNTER → 2023-07-10 08:19 | Outpatient (CLI) | payer OTHER, SELFPAY ==
[2020-10-13 11:52] VITALS: BMI 37.9
--- NOTE | 2023-07-10 08:21 | DI.RAD.S_ITS ---
PROCEDURE: XR HIP W PEL IF DONE RT 2V INDICATIONS: ongoing chronic R hip pain TECHNIQUE: 2 views of the hip were acquired. COMPARISON: [facility], CR, XR HIP W PEL IF DONE LT 2V, 10/13/2020, 10:56. FINDINGS: Bones: No fractures or dislocations. Moderate femoroacetabular joint space narrowing and juxta-articular osteophytosis with subchondral cyst in the lateral acetabulum. No suspicious bony lesions. The visualized pelvic ring appears intact. Limited view of left total hip arthroplasty hardware is intact with no perihardware lucency to suggest hardware loosening. Soft tissues: No suspicious soft tissue calcifications or masses. IMPRESSION: 1. No acute bony abnormality. If there is high clinical suspicion for a radiographically occult fracture, consider CT or MRI for further evaluation. 2. Moderate degenerative changes of the right femoroacetabular joint with subchondral cyst in the lateral acetabulum, increased compared to prior dated October 13, 2020. Dictated by: Maurizio Vega M.D. on 07/10/2023 at 11:47 Approved by: Maurizio Vega M.D. on 07/10/2023 at 12:06
== END ==
PROVIDERS: PCP Family Medicine; Referring Provider Family Medicine; Visit Provider Family Medicine
DX: M16.0 Bilateral primary osteoarthritis of hip (principal); M25.551 Pain in right hip
CPT/HCPCS: 73502

== ENCOUNTER → 2023-09-04 08:19 | Outpatient (CLI) | payer OTHER, SELFPAY ==
[2020-10-13 11:52] VITALS: BMI 37.9
[2023-09-04 09:03] LABS: Appearance Urine UA CLEAR; Bilirubin Urine UA NEGATIVE (NEGATIVE); Color Urine UA YELLOW; Glucose Urine UA NEGATIVE (Negative); Ketones Urine UA NEGATIVE (NEGATIVE); Leukocyte Esterase Urine UA NEGATIVE (NEGATIVE); Nitrite Urine UA NEGATIVE (Negative); Occult Blood Urine UA TRACE-INTACT (Negative); Protein Urine UA NEGATIVE (Negative); Specific Gravity Urine UA 1.025 (1.000-1.035); Urobilinogen Urine UA 0.2 E.U./dL (0.2)
[2023-09-04 09:04] LABS: pH Urine UA 5.5 (4.5-8.0)
[2023-09-04 09:05] LABS: Bacteria Urine Occasional (0-1); Culture Indicated Urine Cult Not Indicated; RBC Urine None Seen (0-5/HPF); Squamous Epithelial Cell Urine 0-1 /HPF (0-5/HPF); Urine Volume Low Vol <10mL unspun; WBC Urine None Seen (0-5/HPF)
[2023-09-04 09:10] LABS: Add Manual Diff / Slide Review NO; Basophils Absolute Auto 100 /uL (0-100); Basophils Percent Auto 0.6 % (0-2); Eosinophils Absolute Auto 200 /uL (0-450); Eosinophils Percent Auto 2.1 % (2-4); Hematocrit 43.4 % (36-46); Hemoglobin 14.9 g/dL (12.0-16.0); Lymphocytes Absolute Auto 5900 /uL (1100-4500); Lymphocytes Percent Auto 54.4 % (25-40); Mean Corpuscular HGB Conc 34.4 % (30-36); Mean Corpuscular Hemoglobin 31.7 PG (26-34); Mean Corpuscular Volume 92.4 fL (80-100); Monocytes Absolute Auto 500 /uL (0-900); Monocytes Percent Auto 4.4 % (3-14); Neutrophils Absolute Auto 4100 /uL (1500-7000); Neutrophils Percent Auto 38.5 % (50-75); Platelet Count 311 X10^3/uL (150-400); Red Blood Cell Count 4.69 X10^6/uL (4.0-5.2); Red Cell Distribution Width 13.8 % (11.6-14.8); White Blood Cell Count 10.7 X10^3/uL (4.5-11.0)
[2023-09-04 10:04] LABS: BUN Creatinine Ratio 42.1 (6-22); Blood Urea Nitrogen 24 mg/dL (7-17); Calcium 9.9 mg/dL (8.4-10.2); Carbon Dioxide 23 mmol/L (22-32); Chloride 105 mmol/L (98-107); Estimated Glomerular Filt Rate > 60 mL/min (>60); Glucose 99 mg/dL (70-100); HEMOLYSIS < 15 (0-50); Potassium 4.2 mmol/L (3.4-5.1); Sodium 139 mmol/L (137-145)
[2023-09-05 06:20] LABS: x Labcorp Estim. Avg Glu (eAG) 120 mg/dL (.); x Labcorp Hemoglobin A1c 5.8 % (4.8-5.6)
== END ==
PROVIDERS: PCP Family Medicine; Referring Provider Orthopaedic Surgery; Visit Provider Orthopaedic Surgery
DX: Z01.818 Encounter for other preprocedural examination (principal); Z01.812 Encounter for preprocedural laboratory examination; R73.9 Hyperglycemia, unspecified; N39.0 Urinary tract infection, site not specified
CPT/HCPCS: 36415; 80048; 81001; 83036; 85025; 93005; 93010

== ENCOUNTER 2023-09-28 06:14 | Day surgery (SDC) | payer OTHER, SELFPAY ==
[2020-10-13 11:52] VITALS: BMI 37.9
[2023-09-26 13:50] VITALS: BMI 32.5
[2023-09-28] VITALS (14 sets, daily range): BP systolic 119–152; BP diastolic 67–95; PULSE 72–100; RESP 14–19; TEMP 36.2–37.1; O2SAT 96–100; BMI 33.5
--- NOTE | 2023-09-28 06:00 | DI.RAD.S_ITS ---
PROCEDURE: XR PELVIS 1-2V INDICATIONS: TERESITA TECHNIQUE: 1 view(s) of the pelvis acquired. COMPARISON: [facility], CR, XR PELVIS WITH LATERAL HIP RIGHT, 09/15/2023, 13:45. FINDINGS: Bones: Interval right hip arthroplasty. Left hip arthroplasty again seen. Soft tissues: Small postoperative changes. IMPRESSION: Interval right hip arthroplasty with postoperative changes. Dictated by: Colton Marino M.D. on 09/28/2023 at 11:10 Approved by: Colton Marino M.D. on 09/28/2023 at 11:10
[2023-09-28] MEDS: ACETAMINOPHEN 325 MG TABLET 975 MG PO (07:16)
[2023-09-28] MEDS: VANCOMYCIN 1,000 MG/200 ML PIGGYBACK 200 MG IV (07:17)
[2023-09-28] MEDS: CELECOXIB 200 MG CAPSULE PO (07:17)
[2023-09-28] MEDS: LACTATED RINGERS 1,000 ML 42 ML IV (07:17)
--- NOTE | 2023-09-28 07:42 | PM.OP.1 ---
Operative Date/Time/Diagnoses Date of procedure: 09/28/23 Time of procedure: 08:00 Pre-op diagnosis: right hip OA Post-op diagnosis: same Procedure & Clinicians Procedure: right total hip arthroplasty posterior approach Same procedure as scheduled: Yes Indications: The patient has had progressively worsening right hip pain with radiographic changes consistent with arthritis. Non-operative management has failed and the patient has requested total hip replacement. The risks, benefits and alternatives to surgery were discussed with the patient prior to proceeding. Risks discussed included, but were not limited to, failure to relieve pain, leg length discrepancy, dislocation, stiffness, infection, nerve damage, deep venous thrombosis, pulmonary embolism, stroke, coma, heart attack, permanent paralysis and , as well as the potential need for eventual revision of the prosthetic. Surgeon: Delmy Arrieta Net Sql Developer: Jeanne Quiroga Anesthesia Type: General Operative Notes Findings: Severe right hip OA, adequate stability, adequate bone Closure Type: primary Specimen(s): none sent Prosthetic devices, grafts, tissues, transplants, or devices: Arrieta and nephew 50 mm R3 cup, size 5 anthology, neutral poly liner,one 6.5 mm screw, 32 x +0 head Estimated Blood Loss (mL): 250 Blood products transfused: none Procedure in detail: The patient was seen in the pre-operative area, where the patient identified the right hip as the operative site and this was marked with my initials. The patient received pre-operative antibiotics and was taken to the operating room and placed on the operative table in the left lateral decubitus position after satisfactory anesthesia. A time clock mechanic out was performed. The right leg was prepared from the ankle to the iliac crest with ChloroPrep in the usual fashion and draped through sterile drapes. A PA was used during the procedure was essential for intraoperative retraction and safe implantation of the components. The hip was approached through an approximately 20 cm incision centered over the greater trochanter and curving gently posteriorly as it went proximally. This was carried sharply to the fascia julia, which was divided and retracted with a self retaining retractor. The trochanteric bursa was excised with care being taken to avoid the sciatic nerve, which was identified and protected throughout the case. The short external rotators were incised and the capsulomuscular flap was raised and tagged for later repair. The hip was dislocated, and a femoral neck osteotomy performed approximately 15 mm above the lesser trochanter. Retractors were placed around the femur. The canal was opened with a box cutting osteotome, followed by a T handled reamer and a lateralizing reamer. The chili pepper broach was then used, followed by sequential broaching until there was good stability of the broach in the femur. Retractors were placed to expose the acetabulum. The labrum and central soft tissues were removed. Reaming was performed initially going up in 2 mm increments, then 1 mm increments until good bite was obtained with an odd sized reamer. The cup 1 mm larger than the last reamer was then inserted using the appropriate anteversion guides. It was further stabilized with a single screw. A trial neutral liner was placed. The broach was placed in the canal. A trial head and neck were then placed and the hip relocated and checked for leg length and stability. An intraoperative film confirmed the component position and no evidence of fracture. The patient was stable in the position of sleep, of squatting, and could be put through a range of motion with 45 degrees internal rotation without dislocation. At 90 degrees flexion, internal rotation to 70? was possible before dislocation. This was felt to be satisfactory and the appropriate components were opened, and the trials were removed. The acetabular liner was impacted into position. The final stem was then impacted into the prepared femoral canal. A brief Betadine soak was performed while trialing with head options. The hip was meticulously irrigated with normal saline. Finally the femoral head was impacted onto the stem. The acetabulum was cleared of all material and the hip relocated one final time. The capsulomuscular flap was then repaired to the greater trochanter though an awl hole using the tag sutures. The short external rotators were repaired with a nonabsorbable suture. A deep drain was placed and brought out anteriorly. The fascia julia was closed with Vicryl. The subcutaneous layer was closed with barbed sutures and SteriStrips. An Aquacel Ag dressing was applied and the patient was taken to recovery having tolerated the procedure well. Post-operative Condition: stable Disposition: Acute Care Plan for aftercare: The patient will be maintained on a standard total hip replacement protocol with weight bearing as tolerated and posterior hip precautions. The patient will receive Aspirin and sequential compression devices for DVT prophylaxis. The patient will be discharged home when safe for the home environment.
--- NOTE | 2023-09-28 07:50 | PM.PREOP ---
Pre-operative Note Interval Note History & Physical reviewed/Exam performed by Physician: Yes Changes to H&P: No
[2023-09-28] MEDS: CEFAZOLIN 2 GM/100 ML PREMIX 100 ML IV ×2 (08:12→15:03)
[2023-09-28] MEDS: BUPIVACAINE LIPOSOME 266 MG/20 ML VIAL INJ (08:26)
[2023-09-28] MEDS: BUPIVACAINE 0.25% (PF) 60 ML, EPINEPHrine 0.3 MG INJ (08:28)
[2023-09-28] MEDS: TRANEXAMIC ACID 1,000 MG VIAL 1000 MG INJ ×2 (08:28→09:30)
[2023-09-28] MEDS: SODIUM CHLORIDE IRRIG SOLUTION 250 ML, EPINEPHrine 1 MG IRR (08:33)
--- NOTE | 2023-09-28 10:00 | DI.RAD.S_ITS ---
PROCEDURE: XR HIP W PEL IF DONE RT 2V INDICATIONS: POST OP RIGHT HIP TECHNIQUE: 2 views of the hip were acquired. [facility], 8:40. [facility] LT 2V, 10/13/2020, 10:56. FINDINGS: Bones: Interval right hip arthroplasty. Left hip arthroplasty again seen. Soft tissues: Soft tissue postsurgical changes peer IMPRESSION: Postsurgical changes of interval right hip arthroplasty. Dictated by: Colton Marino M.D. on 09/28/2023 at 12:31 Approved by: Colton Marino M.D. on 09/28/2023 at 12:32
[2023-09-28] MEDS: LACTATED RINGERS 1,000 ML 100 ML IV ×2 (11:19→22:05)
--- NOTE | 2023-09-28 12:50 | PC.NURSE ---
Pt to room 210 at 1045. Pt is awake, alert, and oriented x 3. Denies pain, nausea, or shortness of breath. Pt still having some numbness to bilat lower ext. Pt oriented to room, call light, bed controls, and tv controls. Pt denies needs at this time. SCD's on and running. Bed alarm on for safety. Pt agrees to call for assistance as needed and to not get out of bed without help.
--- NOTE | 2023-09-28 13:20 | PT.IIE ---
Current Diagnoses Unilateral primary osteoarthritis, right hip (09/28/23) Surgery Performed Operation Date: 09/28/23 07:45 Actual Procedures p Total Hip Arthroplasty(Right) - Delmy Arrieta MD Surgical History (Last Updated 09/26/23 @ 14:08 by Monica Fulton, RN) History of total left hip replacement (10/13/20) Hx of cholecystectomy Hx of dilation and curettage (~2008) Medical History (Last Updated 09/26/23 @ 14:06 by Monica Fulton RN) Degenerative joint disease of both hips Endometrial hyperplasia Episodic tension-type headache, not intractable (06/08/15) Fibroids Hyperparathyroidism Hypertension Neck pain Osteoarthritis Physical Therapy Inpatient Evaluation/Re-Eval M1 PT/OT-IP Prior Functional Status Start: 09/28/23 12:38 Freq: NEEDED Status: Active Protocol: Document 09/28/23 12:40 MB (Rec: 09/28/23 13:19 MB [id number]) Medical Review Prior Functional Status Medical History Reviewed Yes Diet/Fluid Consistency Regular Communication WNLs Mobility and Gait I, antalgic gait Activities of Daily Living and IADL's I, 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 8 steps and two rails that she can reach at the same time to enter Home Environment Standard Height Toilet,Tub/ Shower Home Equipment Front Wheel Walker Employment Status [employer] Employed M2 PT-IP Current Condition Start: 09/28/23 12:38 Freq: NEEDED Status: Active Protocol: Document 09/28/23 12:40 MB (Rec: 09/28/23 13:19 MB [id number]) Physical Therapy Current Condition Current Condition Evaluation Date 09/28/23 Treatment Diagnosis Right posterior hip replacement M3 PT-IP Subjective Start: 09/28/23 12:38 Freq: NEEDED Status: Active Protocol: Document 09/28/23 12:40 MB (Rec: 09/28/23 13:19 MB [id number]) Subjective Physical Therapy Visit Type Type Initial Evaluation Visit Start Time 12:40 Visit Stop Time 13:05 Number of FISCAL AGENT Visits 0 Physical Therapy Visit Comments Patient Comments Pt states that she is starting to be able to move her foot post-op and she is agreeable to initiate PT assessment. Therapy Pain Assessment Pain When Pain Assessed During Mobility Pain Present Pain Present Pain Reported Location Right hip Intensity 3 Scale Used [place] (Faces) Description Acute Pain Behaviors Facial Grimacing Pain Management Techniques Apply Cold,Distraction, Modification of Treatment,Re- positioning,Timing of Activity with Medications M4 PT-IP Mobility and Gait Start: 09/28/23 12:38 Freq: NEEDED Status: Active Protocol: Document 09/28/23 12:40 MB (Rec: 09/28/23 13:19 MB [id number]) PT-Bed Mobility Assessment Supine to Sit Supine to Sit Standby Assistance,1 Person Assistance,Head of Bed Elevated,Bedrails Sit to Supine Sit to Supine Minimal Assistance,1 Person Assistance,Head of Bed Elevated,Bedrails Scooting Scooting to Edge of Bed Contact Guard Assistance Scooting Up and Down in Bed Contact Guard Assistance PT-Transfer Assessment Sit to and From Stand Sit to and from Stand Minimal Assistance,1 Person Assistance,Use of Upper Extremities Equipment Transfer Assistive Device Gait Belt,Front Wheeled Walker Orthotic/Prosthetic Devices or Brace: No Transfer Ability Level of Assist Minimal Assistance,1 Person Assistance,Use of Upper Extremities Comments Mobility Comments Pt stands up to walker and once putting her right foot down, she does not have enough sensation or strength in her right leg to fully weight bear or step with RW at this time PT-Balance Assessment Sitting Balance and Reactions Static Sitting Balance Ability Good Dynamic Sitting Balance Ability Good Standing Balance and Reactions Static Standing Balance Ability Fair Dynamic Standing Balance Ability Poor Device Used RW M5 PT-IP Objective Assessments Start: 09/28/23 12:38 Freq: NEEDED Status: Active Protocol: Document 09/28/23 12:40 MB (Rec: 09/28/23 13:19 MB [id number]) Orientation Orientation/Cognition Level of Alertness Alert Orientation Name,Age,Birthday,Month,Date, Year,Day of Week,Place, Situation Language Function Ability No Deficits Noted Safety Awareness Understands Safety Issues Memory Description No Deficits Noted Gross Range of Motion Upper Extremity ROM Assessment Within Functional Limits Lower Extremity ROM Assessment Right Impaired Strength Upper Extremity Strength Assessment Within Functional Limits Lower Extremity Strength Assessment Right Impaired Hip Deferred same day post-op Knee Deferred same day post-op, at least 3/5 for LAQ WNLs Ankle 4/5 Sensation Assessment Sensation Gross Sensation Right LE Impaired,Left LE Impaired Sensation Description Numbness M6 PT-IP Treatment Start: 09/28/23 12:38 Freq: NEEDED Status: Active Protocol: Document 09/28/23 12:40 MB (Rec: 09/28/23 13:19 MB [id number]) Physical Therapy Treatment Exercises Exercises Ankle Pumps,Gluteal Sets,Quad Sets,Heel Slides Education Education Provided Precautions,Weight Bearing Status,Post-Op Packet,Safety M7 PT-IP Assessment and Plan Start: 09/28/23 12:38 Freq: NEEDED Status: Active Protocol: Document 09/28/23 12:40 MB (Rec: 09/28/23 13:19 MB [id number]) PT Summary Assessment and Plan Potential Rehabilitation Potential Good Status of Condition at Evaluation Evolving Summary Impairments Pain,ROM,Strength,Balance, Sensation,Bed Mobility, Transfers,Gait,Activity Tolerance Progress Towards Goals Slow Progress due to Activity Tolerance Assessment Summary Pt is a 53 y/o female with previous history of left posterior hip replacement who recalls 2/3 precautions today after right posterior hip replacement. She moves her leg well in the bed to the left and to the right for bed mobility and she does report sensation is returning post-op and she has some ongoing numbness. Once EOB and standing, pt and PT notice that right LE is weak with functional WB and pt reports not yet sufficient sensation or strength to step. She returns to sitting and scoots up to the HOB to the left with feet dangling d/t bed height. BP monitored and O2 sats as well and pt is not symptomatic with mobility. Returned to supine. Recommend up with nsg later today as right LE sensation fully recovers. Goals Bed Mobility Goal Independent Transfer Goal Independent,Front Wheeled Walker Gait Goal Independent,Front Wheel Walker Gait Distance 100 Other Goals Pt will ascend and descend 8 steps with B rails to allow safe home entrance with no more than superv assistance. Frequency of Treatment Frequency Of Treatment Twice a Day Treatment Plan Physical Therapy Treatment Plan Bed Mobility Training,Transfer Training,Gait Training, Therapeutic Exercise,Balance Retraining,Discharge Planning, Hot or Cold Pack,Coordination Retraining Precautions Posterior Hip Precautions No Hip Flexion > 90 degrees,No Hip Internal Rotation,No Hip Adduction Weight Bearing Status Weight Bearing Status Weight Bear as Tolerated Recommendations To Nursing Amount of Assist Needed 2 Person Assist Discharge Recommendations PT Discharge Recommendations Home with Assistance, Outpatient PT Transportation Needs at Discharge Private Vehicle
[2023-09-28] MEDS: OXYCODONE IR 5 MG TABLET PO ×2 (14:04→20:35)
--- NOTE | 2023-09-28 15:40 | OT.IP.EVAL ---
Current Diagnoses Unilateral primary osteoarthritis, right hip (09/28/23) Surgery Performed Operation Date: 09/28/23 07:45 Actual Procedures p Total Hip Arthroplasty(Right) - Delmy Arrieta MD Past Medical History (Last Updated 09/26/23 @ 14:06 by Monica Fulton, RN) Degenerative joint disease of both hips Endometrial hyperplasia Episodic tension-type headache, not intractable (06/08/15) Fibroids Hyperparathyroidism Hypertension Neck pain Osteoarthritis Surgical History (Last Updated 09/26/23 @ 14:08 by Monica Fulton RN) History of total left hip replacement (10/13/20) Hx of cholecystectomy Hx of dilation and curettage (~2008) Occupational Therapy Inpatient Evaluation/Re-Eval M1 PT/OT-IP Prior Functional Status Start: 09/28/23 15:46 Freq: NEEDED Status: Active Protocol: Document 09/28/23 15:46 [facility] (Rec: 09/28/23 16:00 [facility] [id number]) Medical Review Prior Functional Status Medical History Reviewed Yes Diet/Fluid Consistency Regular Communication WNLs Mobility and Gait I, antalgic gait Activities of Daily Living and IADL's I, 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 8 steps and two rails that she can reach at the same time to enter Home Environment Standard Height Toilet,Tub/ Shower Home Equipment Front Wheel Walker,Raised Toilet Seat w/Armrests,Long Handled Sponge,Container Packer Operator,Sock Aid Employment Status [employer] Employed Additional Social History Comment Pt's and mom to assist her at home. M2 OT-IP Current Condition Start: 09/28/23 15:46 Freq: Status: Active Protocol: Document 09/28/23 15:46 [facility] (Rec: 09/28/23 16:00 [facility] [id number]) Occupational Therapy Current Condition Current Condition Evaluation Date 09/28/23 Treatment Diagnosis S/P R TERESITA posterior approach Diagnosis Onset Date 09/28/23 Post Operative Precautions Posterior Hip Precautions No Hip Flexion > 90 degrees,No Hip Internal Rotation,No Hip Adduction M3 OT- IP Subjective and Pain Start: 09/28/23 15:46 Freq: Status: Active Protocol: Document 09/28/23 15:46 [facility] (Rec: 09/28/23 16:00 [facility] [id number]) OT- Subjective Occupational Therapy Visit Type Type Initial Evaluation Visit Start Time 14:55 Visit Stop Time 15:40 Occupational Therapy Visit Comments Patient Comments Pt agreed to get up and wanting to use the BSC. Patient/Caregiver Goals TO go home. OT Pain Assessment Pain When Pain Assessed At Rest Pain Present Pain Present Pain Reported Location Right hip Intensity 8 Scale Used Numeric (0 - 10) M4 OT- IP ADL's Start: 09/28/23 15:46 Freq: Status: Active Protocol: Document 09/28/23 15:46 [facility] (Rec: 09/28/23 16:00 [facility] [id number]) OT [id number] Comments OT Self-Feeding Comments Not at meal time. OT ADL-Grooming General Evaluation Grooming Ability Standby Assistance Areas Needing Assistance Retrieving/Set-up of Grooming Items OT ADL-Oral Care Comments Oral Care Comments Not performed. OT ADL-Dressing Comments OT Dressing Comments Not performed. Pt has all LB dressing equipment at home to use and her family to be able to assist. OT ADL-Toileting General Evaluation Toileting Ability Standby Assistance Comments OT Toileting Comments Pt able to wipe while standing . Suggested to get a BSC as at times pt states has to get up often to go to the bathroom. OT ADL-Bathing Comments OT Bathing Comments Suggested to get a tub bench to increase the ease to get into and out of the tub/shower , obtain a HHSP, and pt aware to cover the dressing while showering. M5 OT- IP IADL's Start: 09/28/23 15:46 Freq: Status: Active Protocol: Document 09/28/23 15:46 [facility] (Rec: 09/28/23 16:00 [facility] [id number]) OT-Instrumental Activities of Daily Living Deficits IADL Deficits Identified Deficits Home Safety Awareness Awareness of Need for Assistance at Home Good Awareness Ability to Problem Solve Emergency Able to Problem Solve Situations Medication Management Medication Management No Deficits Identified Money Management Money Management No Deficits Identified Meal Preparation Meal Preparation Caregiver Provides Assist Online Editor Online Editor Caregiver Provides Assist M6 OT- IP Functional Cognition Start: 09/28/23 15:46 Freq: Status: Active Protocol: Document 09/28/23 15:46 [facility] (Rec: 09/28/23 16:00 [facility] [id number]) Cognitive Factors Limiting Selfcare Function Cognitive Ability Level of Alertness Alert Patient Orientation Name,Age,Birthday,Month,Date, Year,Day of Week,Place, Situation Attention Span Ability Capable of Focused Attention, Capable of Sustained Attention Ability to Follow Commands Able to Follow One Step Commands Memory Description No Deficits Noted Cognitive Comments Cognitive Assessment Comments Pt able to recall and incorporate her hip precautions during ADl and , mobility needs. Pt needing cues to push up from the bed to stand and reach back to the BSC while sitting down. OT- Vision and Hearing OT- Hearing Assessment OT- Hearing Assessment WFL OT- Vision Assessment Visual Acuity Glasses All The Time,Contact Lenses Visual Attentiveness WFL Occular Pursuits WFL M7 OT- IP Mobility and Balance Start: 09/28/23 15:46 Freq: Status: Active Protocol: Document 09/28/23 15:46 [facility] (Rec: 09/28/23 16:00 [facility] [id number]) OT- Bed Mobility Assessment Supine to Sit Supine to Sit Assist Minimal Assistance Sit to Supine Sit to Supine Assist Minimal Assistance OT-Transfer Assessment Sit to and From Stand Sit to and from Stand Contact Guard Assistance Transfers Transfer Ability Standby Assistance,Contact Guard Assistance Technique Transfer Destination Bed,Bedside Commode Devices Transfer Assistive Devices Gait Belt,Front Wheeled Walker Comments Mobility Comments AVERY to assist with her RLE into and out of the bed. Pt CGA to SBA with good control of her RLE with use of the FWW for the transfer. Ablwe to educate pt on car transfers as pt has a low car, but will be using her mom's car initially to get home. OT- Balance Assessment Sitting Balance and Reactions Static Sitting Balance Ability Normal Dynamic Sitting Balance Ability Good Standing Balance and Reactions Static Standing Balance Ability Good Dynamic Standing Balance Ability Fair M8 OT- IP Objective Assessments Start: 09/28/23 15:46 Freq: Status: Active Protocol: Document 09/28/23 15:46 [facility] (Rec: 09/28/23 16:00 [facility] [id number]) OT Gross Range of Motion Upper Extremity Range of Motion Assessment Within Functional Limits OT Strength Upper Extremity Strength Assessment Within Functional Limits M9 OT- IP Assessment and Plan Start: 09/28/23 15:46 Freq: Status: Active Protocol: Document 09/28/23 15:46 [facility] (Rec: 09/28/23 16:00 [facility] [id number]) OT Summary Assessment and Plan Potential Rehabilitation Potential Excellent Analytic Complexity at Evaluation Low Summary OT Impairments Pain,Strength,Balance, Functional Mobility,Dressing, Toileting,Bathing,Toilet Transfers Progress Towards Goals Progressing Toward Goals Assessment Summary Pt low complexity and main barriers are pain, vc for hand placement when standing and sitting down, and needing AVERY for RLE for bed mobility at this time. Pt has good family support to assist with her needs at home. Pt's insistent that they do not want to practice the stairs or shower prior to being discharged tomorrow. Pt to go home and have PT at her facility she works with her. Goals Self-Feeding Goal Independent Grooming Goal Independent Dressing Goal Independent,Long Handled Shoe Horn,Container Packer Operator,Sock Aid Toileting Goal Independent Bathing Goal Independent Toilet Transfer Goal Independent Shower Transfer Goal Independent Days to Meet Goals 7 Frequency of Treatment Frequency Of Treatment Once a Day Treatment Plan OT Treatment Plan ADL Training,Functional Mobility,Patient/Family Education,Discharge Planning Discharge Recommendations OT Discharge Recommendations Home with Assistance, Outpatient PT Home Equipment Needs tub bench, HHSP, BSC Transportation Needs at Discharge Private Vehicle
[2023-09-28] MEDS: DOCUSATE 100 MG CAPSULE PO (20:35)
[2023-09-28] MEDS: ASPIRIN EC 81 MG TABLET PO (20:35)
[2023-09-28] MEDS: MELATONIN 3 MG TABLET 6 MG PO (22:05)
[2023-09-29] MEDS: CEFAZOLIN 2 GM/100 ML PREMIX 100 ML IV (01:58)
[2023-09-29] MEDS: OXYCODONE IR 5 MG TABLET PO ×4 (02:11→10:53)
[2023-09-29 06:41] LABS: Hematocrit 36.4 % (36-46); Hemoglobin 12.4 g/dL (12.0-16.0)
--- NOTE | 2023-09-29 07:32 | PM.DS.1 ---
History of Present Illness History of Present Illness Chief complaint: Right Total Hip Arthroplasty Narrative: Grace is a pleasant 53-year-old female who is postop day #1 s/p right TERESITA, posterior approach by Dr. Arrieta. Patient states she is doing well overall. She is looking forward to discharging to home today with her . She reports she was able to work with PT yesterday with good improvement and has been able to get up and use the restroom on her own with the use of a walker during her hospital stay. Patient does have 8 steps leading up to her home but has no steps on the interior, we will ensure she works with PT on stairs today prior to d/c. Has postop medications at home already, has postop physical therapy appointments scheduled with [facility]. Has a walker at home for postop use. Denies chest pain, shortness of breath, nausea, vomiting, fevers, chills. Operative Date/Time/Diagnoses Date of procedure: 09/28/23 Time of procedure: 08:00 Pre-op diagnosis: right hip OA Post-op diagnosis: same Procedure & Clinicians Procedure: right total hip arthroplasty posterior approach Same procedure as scheduled: Yes Indications: The patient has had progressively worsening right hip pain with radiographic changes consistent with arthritis. Non-operative management has failed and the patient has requested total hip replacement. The risks, benefits and alternatives to surgery were discussed with the patient prior to proceeding. Risks discussed included, but were not limited to, failure to relieve pain, leg length discrepancy, dislocation, stiffness, infection, nerve damage, deep venous thrombosis, pulmonary embolism, stroke, coma, heart attack, permanent paralysis and , as well as the potential need for eventual revision of the prosthetic. Surgeon: Delmy Arrieta Medical Case Manager: Jeanne Quiroga Anesthesia Type: General Discharge Providers Provider Discharge Date: 09/29/23 Primary care physician: Angelika Rawls DO Consults: 09/28/23 06:00 Consult to Anesthesiology Routine Comment: Consulting Provider: Anesthesiologist Reason for consultation: Regional block for post operative pain control Has provider been notified: No 09/28/23 10:47 Consult to Discharge Planning Routine Comment: Consult to Occupational Therapy Evaluate & Treat Comment: Physician Instructions: Evaluate and treat Consult to Physical Therapy Evaluate & Treat Comment: Physician Instructions: post op TERESITA protocol Discharge provider: Monica Garvin PA-C Summary Hospital Course Discharge Diagnosis: Right hip OA status post right TERESITA Hospital Course: Uncomplicated hospital course Exam Vital Signs (past 8 hours): Oxygen Delivery Method Room Air Oxygen Flow Rate 0 Const General: cooperative, healthy appearing and comfortable Resp Effort & Inspection: normal respiratory effort and able to speak in complete sentences Cardio Rate: regular rate Other: Brisk capillary refill. Neuro General: patient alert, patient awake and patient oriented x3 Other: Sensation intact throughout bilateral lower extremities. Extrem Other: 5/5 strength with DF, PF, EHL. Intact, functioning, clean, dry lissy dressing in place over the right posterior hip. Calf soft and nontender bilaterally. Psych Mental Status: mental status grossly normal Speech and Movement: speech and movement normal Objective Labs 09/29/23 06:15 Labs: Laboratory Results - last 24 hr 09/29/23 06:15 Hgb 12.4 Hct 36.4 PFSH Medical History (Updated 09/26/23 @ 14:06 by Monica Fulton RN) Osteoarthritis Degenerative joint disease of both hips Neck pain Endometrial hyperplasia Fibroids Hyperparathyroidism Hypertension Episodic tension-type headache, not intractable (06/08/15) Surgical History (Updated 09/26/23 @ 14:08 by Monica Fulton RN) Hx of dilation and curettage (~2008) Hx of cholecystectomy History of total left hip replacement (10/13/20) Family History Grandfather Type 2 diabetes mellitus without complication Grandmother Secondary hypertension, unspecified Mother Age: 76 Sleep apnea, unspecified type Social History household members: spouse Smoking Status: Current every day smoker alcohol intake: current Discharge Assessment & Plan Assessment and Plan Assessment: Stable status post right TERESITA Plan of Treatment: 1) Plan to d/c to home today after working [facility] PT. 2) Keep dressing clean and dry. No soaking the incision site in pools or tubs. No topical ointments or creams to the incision site 3) Continue multimodal pain management, patient has postop medications at home already and has instructed on their use. Continue ASA b.i.d. for DVT prophylaxis. Ice to the hip for additional pain control. 4) Continue to work on mobility with outpatient physical therapy. Weightbearing as tolerated, maintain posterior hip precautions. 5) Follow-up as scheduled at [facility] in 2 weeks for postop appointment and wound check. All patients questions were answered and she is in agreement with plan. Discharge Plan Discharge Plan Patient Disposition: Home Discharge orders & Medications Discharge Orders: Discharge (Order); Ordered 09/29/23 Ordered By: Monica Garvin Prescriptions: New aspirin 81 mg Tablet,Delayed Release (Dr/Ec) 81 mg PO BID Qty: 90 0RF docusate sodium 100 mg Capsule 100 mg PO BID Qty: 30 0RF acetaminophen 325 mg Tablet 650 mg PO Q6H PRN (Reason: Fever/Mild Pain (1-3)) Qty: 90 0RF Continued lisinopril 10 mg tablet 10 mg PO DAILY Qty: 90 1RF Rx Instructions: Patient due for appt w/new pcp. Please call and schedule nikko. thanks 04/21/23 ibuprofen 200 mg Tablet 400 mg PO DAILY oxycodone 5 mg Tablet 5 mg PO DAILY Follow up/Referrals: Delmy Arrieta MD [Physician] - 10/11/23 1:30 pm (Follow up @ [facility] in [place].) Angelika Rawls DO [Primary Care Provider] - Diet/Activity/Treatments Diet: Diet as Tolerated Activity: Weightbearing as tolerated to right leg. Posterior hip precautions. Cold/Heat Therapy: Ice to hip as needed for pain. Skin/Wound/Dressing Care Report to your healthcare provider any signs of infection, such as:: chills, fever, night sweats, unusual drainage and unusual redness Dressing: May shower. Leave dressing in place until follow up in office. Batteries will in 5-7 days, at which point you can cut off battery pack and dispose of it. No bathing or otherwise soaking incision. Call the office if the dressing becomes saturated inside. Visit Report/Discharge Packet Instructions: DI for Hip Replacement, DI for Prescription Opioid Use Stand Alone Forms: Patient Portal/API Discharge Data Primary Care Provider: Angelika Rawls Attending Provider: Delmy Arrieta
[2023-09-29 08:13] VITALS: BP 127/68; PULSE 70
[2023-09-29 08:31] VITALS: BP 127/68; PULSE 70
[2023-09-29] MEDS: lisinopriL 10 MG TABLET PO (08:31)
[2023-09-29] MEDS: ASPIRIN EC 81 MG TABLET PO (08:32)
[2023-09-29] MEDS: DOCUSATE 100 MG CAPSULE PO (08:32)
--- NOTE | 2023-09-29 08:52 | PT.IPTN ---
Current Diagnoses Unilateral primary osteoarthritis, right hip (09/28/23) Surgery Performed Operation Date: 09/28/23 07:45 Actual Procedures p Total Hip Arthroplasty(Right) - Delmy Arrieta MD Physical Therapy Treatment Note M2 PT-IP Current Condition Start: 09/28/23 12:38 Freq: NEEDED Status: Active Protocol: Document 09/28/23 12:40 MB (Rec: 09/28/23 13:19 MB [id number]) Physical Therapy Current Condition Current Condition Evaluation Date 09/28/23 Treatment Diagnosis Right posterior hip replacement M3 PT-IP Subjective Start: 09/28/23 12:38 Freq: NEEDED Status: Active Protocol: Document 09/29/23 09:21 TS (Rec: 09/29/23 09:32 TS [id number]) Subjective Physical Therapy Visit Type Type Treatment Note Visit Start Time 08:52 Visit Stop Time 09:15 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 Therapy Pain Assessment Pain When Pain Assessed At Rest Pain Present Pain Present Denied Pain M4 PT-IP Mobility and Gait Start: 09/28/23 12:38 Freq: NEEDED Status: Active Protocol: Document 09/29/23 09:21 TS (Rec: 09/29/23 09:32 TS [id number]) PT-Bed Mobility Assessment Supine to Sit Supine to Sit Standby Assistance,1 Person Assistance,Head of Bed Elevated,Bedrails Scooting Scooting to Edge of Bed Standby Assistance PT-Transfer Assessment Sit to and From Stand Sit to and from Stand Standby Assistance Equipment Transfer Assistive Device Gait Belt,Front Wheeled Walker Orthotic/Prosthetic Devices or Brace: No Comments Mobility Comments Supine to sit SBA with HOB elevated and BUE support, pt demonstrates good awareness of her hip precautions with bed mobility. STS from bed SBA with FWW, pt has good standing standing balance with no retroleaning. She ambulated ~ 150'SBA with FWWw and step to gait, denied any dizziness or lightheadedness. She performed steps x6 ascending/descending SBA with B handrails, pt required cues for proper step sequencing. She ambulated back to room, was left in chair, all needs met, RN notified. Gait Assessment Gait Gait Assistance Required: Standby Assistance Distance (Feet) 150 Able to Maintain Weight Bearing Status Yes During Gait Assistive Devices Assistive Device Gait Belt,Front Wheeled Walker Orthotic/Prosthetic Devices or Brace: No Gait Deviations General Gait Pattern Antalgic,Decreased Stride Length,Decreased Feet Clearance,Step-to Gait Factors Limiting Gait Function Factors Limiting Gait Function Decreased Activity Tolerance, Decreased Strength Comments Gait Comments See mobility comments Stair Climbing Assessment Evaluation Level of Assist On Stairs Standby Assistance Devices Stair Climbing Assistive Devices Left Railing,Right Railing Technique/Endurance Stair Climbing Direction Ascend and Descend Stair Climbing Technique Step to Step Number of Steps Climbed 6 Comments Stair Climbing Comments See mobility comments PT-Balance Assessment Sitting Balance and Reactions Static Sitting Balance Ability Normal Dynamic Sitting Balance Ability Good Standing Balance and Reactions Static Standing Balance Ability Good Dynamic Standing Balance Ability Fair Device Used RW M5 PT-IP Objective Assessments Start: 09/28/23 12:38 Freq: NEEDED Status: Active Protocol: Document 09/28/23 12:40 MB (Rec: 09/28/23 13:19 MB [id number]) Orientation Orientation/Cognition Level of Alertness Alert Orientation Name,Age,Birthday,Month,Date, Year,Day of Week,Place, Situation Language Function Ability No Deficits Noted Safety Awareness Understands Safety Issues Memory Description No Deficits Noted Gross Range of Motion Upper Extremity ROM Assessment Within Functional Limits Lower Extremity ROM Assessment Right Impaired Strength Upper Extremity Strength Assessment Within Functional Limits Lower Extremity Strength Assessment Right Impaired Hip Deferred same day post-op Knee Deferred same day post-op, at least 3/5 for LAQ WNLs Ankle 4/5 Sensation Assessment Sensation Gross Sensation Right LE Impaired,Left LE Impaired Sensation Description Numbness M6 PT-IP Treatment Start: 09/28/23 12:38 Freq: NEEDED Status: Active Protocol: Document 09/29/23 09:21 TS (Rec: 09/29/23 09:32 TS [id number]) Physical Therapy Treatment Education Education Provided Precautions,Weight Bearing Status,Post-Op Packet,Safety M7 PT-IP Assessment and Plan Start: 09/28/23 12:38 Freq: NEEDED Status: Active Protocol: Document 09/29/23 09:21 TS (Rec: 09/29/23 09:32 TS [id number]) PT Summary Assessment and Plan Potential Rehabilitation Potential Good Summary Impairments Pain,ROM,Strength,Balance, Sensation,Bed Mobility, Transfers,Gait,Activity Tolerance Progress Towards Goals Progressing Toward Goals Assessment Summary Grace is making good progress with her mobility. She is SBA for all bed mobility and for STS for FWW. She progressed her gait to ~ 150'SBA with FWW. She performed steps x6 with B handrails SBA and demonstrates no buckling or LOB. She has good safety awareness and recalled 3/3 of her hip precautions. PT is recommending pt return home with assist and outpatient PT. Goals Bed Mobility Goal Independent Transfer Goal Independent,Front Wheeled Walker Gait Goal Independent,Front Wheel Walker Gait Distance 100 Other Goals Pt will ascend and descend 8 steps with B rails to allow safe home entrance with no more than superv assistance. Frequency of Treatment Frequency Of Treatment Twice a Day Treatment Plan Physical Therapy Treatment Plan Bed Mobility Training,Transfer Training,Gait Training, Therapeutic Exercise,Balance Retraining,Discharge Planning, Hot or Cold Pack,Coordination Retraining Precautions Posterior Hip Precautions No Hip Flexion > 90 degrees,No Hip Internal Rotation,No Hip Adduction Weight Bearing Status Weight Bearing Status Weight Bear as Tolerated Recommendations To Nursing Amount of Assist Needed 2 Person Assist Discharge Recommendations PT Discharge Recommendations Home with Assistance, Outpatient PT Transportation Needs at Discharge Private Vehicle
--- NOTE | 2023-09-29 11:20 | PC.NURSE ---
Patient is A&Ox4, VSS, afebrile on RA. She is able to ambulate x1 assist with FWW. She is voiding without difficulty. J CARLOS dressing c/d/i no drainage. She is cleared for discharge home today with family after working with PT. She verbalizes understanding of medications, activity, site care, and follow up appointment postoperatively. Patient is escorted to private vehicle with spouse and all of her belongings at approximately 11:20 a.m.
--- NOTE | 2023-09-29 11:48 | CM.DANOTE ---
Initial DCP Assessment Visit Note Reviewed EMR and team rounds for pt's medical status and updates. Met with pt at bedside to introduce self and role, pt was found alert/oriented and sitting upright in the recliner, able to discuss d/c plan and preferences. She lives independently at baseline in a mobile home with her spouse, works full-time at [employer]. Spouse will transport her home at d/c. Payor: [facility] Attending: Dr. Delmy Arrieta Pt is a 53 year-old F with a PMH of progressively worsening R-hip pain that was not improving with conservative pain management methods and an exercise program. She has been working on losing weight, and is planning on continuing this effort once she's more mobile again post-operatively. Ortho is recommending f/u in 2-weeks for wound check, and OP PT twice per week for 4-weeks following hospital discharge. No identified resources or support needs have been identified during this hospitalization for DCP assistance. Discharge Planning/Care Management CM Discharge Assessment Start: 09/29/23 11:44 Freq: Status: Active Protocol: Document 09/29/23 11:44 DPL (Rec: 09/29/23 11:48 DPL [id number]) Discharge Planning Assessment Assigned Acid Splicer OBDULIA Norman Advance Directives? No Advance Directives on File No History Provided By Patient,Medical Record Has Patient been admitted in last 30 No days? Prior Living Arrangements Mobile home Household Members spouse Type of transporation used prior to Drives own vehicle admit Independent with ADL's Yes Is patient alert and oriented? Yes Comment N/A Caregiver for Another No DME Already Rented / Owned Elevated Toilet Seat,FWW / Walker Comment Patient reports that she has access to all needed DME upon d/c. Patient/Family Preference OP PT Therapy Barriers to Discharge No Discharge Plan Home Transportation Arrangement Family Referrals Initiated None needed Whiteboard Updated in Patient Room with Yes name and ext. # of Acid Splicer Comment 09/29/23 Review Status In Process Please Provide Date Initial DC 09/29/23 Assessment Was Performed Pre-Anesthesia Assessment Start: 09/26/23 13:50 Freq: Status: Discharge Protocol: Document 09/26/23 13:50 CAB (Rec: 09/26/23 14:20 CAB [id number]) Pre-Anesthesia Assessment Preferred Name Lacie Patient Information Reviewed Via Phone Assessment Assessment Completed With Patient Diagnostic Results BMP/CMP,CBC,EKG,Urinalysis Comment Labs/EKG @ [facility] Primary Care Provider Angelika Rawls Seen Specialist in Last 12 Months Yes Specialist Seen Emergency,Orthopedist Primary Language Slovenian Preferred Language Slovenian Professor Of Family Medicine Required No Height 162.56 cm Weight 86.183 kg Body Mass Index (BMI) 32.5 Hearing Ability Normal Visual Assist Contacts,Glasses Dentition Type Teeth, Natural Present Barriers to Learning None Hx Anesthesia Reactions No Hx Family Anesthesia Reaction No Hx Malignant Hyperthermia No Hx Blood Transfusions No Hx Blood Transfusion Reaction No Anesthesia Review Requested No Quill Skinner No alcohol intake current alcohol intake frequency holidays/special occasions only Smoking Status Current every day smoker Tobacco type cigarettes Substance Use Type marijuana Comment Advised not to smoke marijuana 24 hours prior Pain Present Pain Reported Musculoskeletal Symptoms Abnormal Gait,Difficulty Walking,Joint Pain History of Falling (Recent or History of No ) Patient is completely paralyzed or No completely immobile Mental Status Oriented to own ability Is patient on oxygen? No Does patient have LEON/SOB No Hx Sleep Apnea No CPAP/BIPAP use not prescribed Currently Taking a Beta [place] No Can You Climb a Flight of Stairs Without Yes SOB Hx Chest Pain No Hx SOB No Hx Syncope or Dizziness No Anti-Coagulant Therapy No Has a Children'S Counselor No Cardiac Testing No Hx Pacemaker/ICD No Pacemaker Rep Required? No Cardiac Clearance Received Not Applicable Diet Type At Home Regular Dysphagia No Gastrointestinal Symptoms None Urinary Catheter Present No Hx Urinary Self Catheterization No Diabetes No HgbA1C 5.8 Date 09/04/23 Patient No Lactating No Hx Drug Resistant Organism No Presence of External or Internal Medical Yes: Left hip prosthesis Devices Received a COVID vaccine? Yes Received all doses? Yes Marital Status Lives With spouse Current Living Arrangements Mobile home Number of Floors (Floors) One Floor Support System Spouse Does the Patient Have Assistance After Yes Surgery Patient Discharge Plan Description Return Home Comment Pt advised possible same day surgery per surgeon Feels Safe in Current Environment Yes Been Physically Hurt or Threatened By a No Person in Current Environment Do you have thoughts of harming yourself None or others? Are you currently considering suicide? No Do you have a plan to hurt yourself or No Plan others? Do You Have Any Spiritual Beliefs That No May Affect Your HC Choices? Do You Have Any Cultural Practices That No May Affect Your HC Choices? Who Can We Speak to About Patient's Care Family, friends Identifying Code for Release of Patient Declines to issue Information Health Care Proxy/Next of Kin Jose E () Health Care Proxy Emergency Contact Name Alisha (mom) Emergency Contact Advance Directives? Yes Advance Directives on File No Requested Patient Bring Advanced Yes Directives DOS Power of Crown Attacher No PAC Instructions Do not shave/clip surgical site,Durable medical equipment ,Medications to take/avoid, Nasal antibiotic,No ETOH/ petroleum product on skin DOS, NPO,Post-op transportation,Pre -surgical wash,Sensory aids, Sturdy shoes/comfortable clothes,Do not bring valuables and remove jewelry
== END 2023-09-29 10:20 | disposition home or self-care (01) ==
LOC: OR 06:15 → AC 06:16
PROVIDERS: PCP Family Medicine; Referring Provider Orthopaedic Surgery; Visit Provider Orthopaedic Surgery
PROC: 0SR90JZ Replacement of Right Hip Joint with Synthetic Substitute, Open Approach (ICD-10-PCS; CPT 27130; principal; 2023-09-28 07:45)
DX: M16.11 Unilateral primary osteoarthritis, right hip (principal)
CPT/HCPCS: 27130; 36415; 72170; 73502; 85014; 85018; 97116; 97165; 97530; 97535; C1776; C9290; J0171; J0690; J1100; J1885; J2250; J2405; J2704; J3010

== ENCOUNTER → 2024-02-19 08:57 | Outpatient (CLI) | payer OTHER, SELFPAY ==
[2023-09-28 10:51] VITALS: BMI 33.5
--- NOTE | 2024-02-19 08:59 | DI.US.S_ITS ---
PROCEDURE: US BREAST LT LIMITED COMPARISON: None. INDICATIONS: Left breast mass FINDINGS: IMPRESSION: Dictated by: Colton Marino M.D. on 02/19/2024 at 10:35 Approved by: Colton Marino M.D. on 02/19/2024 at 10:38
--- NOTE | 2024-02-19 08:59 | DI.MG.S_ITS ---
BILATERAL DIGITAL DIAGNOSTIC MAMMOGRAM 3D/2D: 02/19/2024 CLINICAL: Left breast Mass. Comparison is made to exams dated: 12/13/2021 mammogram, 12/26/2022 mammogram, and 11/30/2018 mammogram - [facility]. There are scattered areas of fibroglandular density in both breasts (category b / 25%-50% glandular tissue). There is an oval fat containing mass in the left breast at 12 o'clock anterior depth. This correlates as palpated and to area of tenderness. No other significant masses, calcifications, or other findings are seen in either breast. IMPRESSION: INCOMPLETE: NEEDS ADDITIONAL IMAGING EVALUATION The oval fat containing mass in the left breast is indeterminate. An ultrasound is recommended. Based on the Tyrer Cuzick model (a risk assessment model) the patient's lifetime risk is 16.3% and her 10 year risk is 5.4%. According to the ACR, ACS, and NCCN guidelines, an annual breast MRI exam along with mammogram is recommended if the patient's lifetime risk is 20% or greater. This exam was interpreted at Station ID: [id number]. NOTE: For mammograms, a report in lay terms will be sent to the patient. Approximately 15% of breast malignancies will not be visualized mammographically. In the management of a palpable breast mass, a negative mammogram must not discourage biopsy of a clinically suspicious lesion. Electronically Signed By: Colton kessler/galileo:02/19/2024 10:35:34 ACR BI-RADS Category 0: Incomplete [id number]
[2024-02-19 09:59] LABS: Hemoglobin A1C% w Est Avg Glu 5.7 % (4.0-6.0)
--- NOTE | 2024-02-19 10:19 | DI.US.S_ITS ---
Patient Name: LUCIA GURROLA date: 1970 Sex: F Attending Physician: Curly Indications: Date: 02/19/2024 10:38 At the request of: HARLEY VIGIL Procedure: US breast LT limited LIMITED ULTRASOUND OF LEFT BREAST: 02/19/2024 CLINICAL: Palpable left breast lump. Comparison is made to exams dated: 02/19/2024 mammogram, 12/26/2022 mammogram, 12/13/2021 mammogram, 11/30/2018 mammogram, 11/18/2017 mammogram, and 02/19/2016 ultrasound [facility]. Color flow and real-time ultrasound of the left breast 11 o'clock region were performed. Reid scale images of the real-time examination were reviewed. There is a 0.7 cm x 0.8 cm x 0.6 cm oval complex cystic solid mass in the left breast at 11 o'clock anterior depth 4 cm from the nipple. This correlates as palpated, to the reported pain, and with mammography findings. IMPRESSION: PROBABLY BENIGN There is a 0.7 cm x 0.8 cm x 0.6 cm oval complex cystic solid mass in the left breast at 11 o'clock anterior depth 4 cm from the nipple. This correlates as palpated, to the reported pain, and with mammography findings. This appeared to contain fat on mammography and might represent fat necrosis, probably benign. A follow-up mammogram and an ultrasound in 6 months is recommended to demonstrate stability. This exam was interpreted at Station ID: [id number]. Electronically Signed By: Colton Marino M.D. lc/:02/19/2024 10:38:45 Continued Report - Page 2 of 2 Patient Name: LUCIA GURROLA date: 1970 Sex: F Attending Physician: Curly Indications: Date: 02/19/2024 10:38 At the request of: HARLEY VIGIL Procedure: US breast LT limited letter sent: Followup Recommended Ultrasound BI-RADS: 3 Probably benign
== END ==
PROVIDERS: PCP Family Medicine; Referring Provider Family Medicine; Visit Provider Family Medicine
DX: R92.8 Other abnormal and inconclusive findings on diagnostic imaging of breast (principal); N63.22 Unspecified lump in the left breast, upper inner quadrant; R92.323 Mammographic fibroglandular density, bilateral breasts; E66.9 Obesity, unspecified; R73.03 Prediabetes; I10 Essential (primary) hypertension; Z80.3 Family history of malignant neoplasm of breast
CPT/HCPCS: 36415; 76642; 77066; 83036; G0279

== ENCOUNTER 2024-07-06 05:48 | Emergency (ER) | payer OTHER, SELFPAY ==
[2023-09-28 10:51] VITALS: BMI 33.5
[2024-07-06 06:00] VITALS: BP 166/91; PULSE 87; RESP 16; TEMP 36.9; O2SAT 99; BMI 36.0
--- NOTE | 2024-07-06 07:22 | DI.RAD.S_ITS ---
PROCEDURE: XR ANKLE LT MIN 3V INDICATIONS: fall TECHNIQUE: 3 views of the ankle were acquired. COMPARISON: None. FINDINGS: Bones: No acute fractures or dislocations. Ankle mortise is normally aligned. No suspicious bony lesions. Plantar calcaneal and retrocalcaneal enthesophytes. Soft tissues: No tibiotalar joint effusion. Achilles tendon appears normal. Mild soft tissue swelling of the anterior left ankle and plantar aspect of the heel. IMPRESSION: Left ankle without acute fracture or dislocation. Mild soft tissue swelling of the left ankle and heel. Prominent plantar calcaneal and retrocalcaneal enthesophytes. If there is persistent clinical concern for occult fracture given adequate mechanism of injury, consider repeat imaging in 10-14 days. Immobilization as clinically indicated. Dictated by: Talat Oshea M.D. on 07/06/2024 at 7:39 Approved by: Talat Oshea M.D. on 07/06/2024 at 7:41
--- NOTE | 2024-07-06 07:22 | DI.RAD.S_ITS ---
PROCEDURE: XR FOOT LT MIN 3V INDICATIONS: fall TECHNIQUE: 3 views of the foot were acquired. COMPARISON: None. FINDINGS: Bones: No fractures or dislocations. No suspicious bony lesions. Plantar calcaneal and retrocalcaneal enthesophytes. Soft tissues: No tibiotalar joint effusion. Achilles tendon appears normal. Minimal soft tissue swelling of the anterior left ankle and plantar aspect of the left heel. IMPRESSION: Minimal soft tissue swelling of the anterior left ankle and heel without underlying fracture or dislocation. Plantar calcaneal and retrocalcaneal enthesophytes. If there is persistent clinical concern for occult fracture given adequate mechanism of injury, consider repeat imaging in 10-14 days. Immobilization as clinically indicated. Dictated by: Talat Oshea M.D. on 07/06/2024 at 7:45 Approved by: Talat Oshea M.D. on 07/06/2024 at 7:46
--- NOTE | 2024-07-06 07:46 | ED.FALL ---
HPI - Fall General Chief Complaint: Fall Stated Complaint: fell down from stairs Time Seen by Provider: 07/06/24 07:45 Source: patient, RN notes reviewed and old records reviewed Mode of arrival: Ambulatory Limitations: no limitations History of Present Illness HPI Narrative: 54-year-old female states that she was coming down the stairs to go to work this morning had a trip and fell hitting her left shoulder and ankle. She states she was little bit of pain with weight-bearing most of her pain is on her lateral ankle. She states she was able to walk. Does have some abrasions. States her tetanus is up-to-date. Denies hitting her head no neck or back pain, no chest pain or shortness of breath. Denies any concussive symptoms. No nausea or vomiting no dizziness. Patient does not take any aspirin or anticoagulants. States she called into work her to works at [employer]. Related Data Home Medications Medication Instructions Recorded Confirmed lisinopril 10 mg tablet 10 mg PO DAILY 07/06/24 07/06/24 Previous Rx's Medication Instructions Recorded acetaminophen 325 mg tablet 650 mg (2 x 325 mg) PO Q6H PRN 09/29/23 Fever/Mild Pain (1-3) #90 tabs Allergies Allergy/AdvReac Type Severity Reaction Status Date / Time Penicillins [PENICILLINS] Allergy Severe rash, hives Verified 02/05/24 14:26 mold [MOLD] Allergy Unknown Verified 02/05/24 14:26 peach Allergy Rash, hives Verified 02/05/24 14:26 Review of Systems Review of Systems ROS Unobtainable: All systems reviewed & are unremarkable except as noted in HPI and below Patient History Medical History Osteoarthritis Degenerative joint disease of both hips Neck pain Endometrial hyperplasia Fibroids Hyperparathyroidism Hypertension Episodic tension-type headache, not intractable (06/08/15) Surgical History Hx of dilation and curettage (~2008) Hx of cholecystectomy 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 HEENT: Head normocephalic, atraumatic, EOMI, pupils reactive, face symmetric, moist mucous membranes NECK: Supple, full range of motion, no cervical vertebral tenderness. CARDIOVASCULAR: Regular rate and rhythm without murmurs, rubs or gallops. RESPIRATORY: Breath sounds equal bilaterally, no wheezes rales or rhonchi. ABDOMEN: Soft, nontender. Normoactive bowel sounds all 4 quadrants. No guarding or rebound, rigidity, no mass : No CVA tenderness EXTREMITIES: Normal range of motion, no clubbing. Patient has some mild edema and ecchymosis over the lateral malleoli of the left ankle. There is some superficial abrasions over the ankle and left upper calf. Patient has minimal tenderness over the left lateral malleoli no other bony tenderness of the lower extremity. Full range of motion. No joint laxity. 2+ dorsalis pedis normal sensation throughout. Neurovascularly intact NEUROLOGICAL: Cranial nerves II through XII grossly intact. Moving all extremities SKIN: Warm, dry, no petechiae, no rashes or lesions. Initial Vital Signs Initial Vital Signs: Vital Signs Temperature 98.4 F 07/06/24 06:00 Pulse Rate 87 07/06/24 06:00 Respiratory Rate 16 07/06/24 06:00 Blood Pressure 166/91 H 07/06/24 06:00 Pulse Oximetry 99 07/06/24 06:00 Oxygen Delivery Method Room Air 07/06/24 06:00 Course Orders Ordered: ED Orders 07/06/24 07:22 XR ankle LT min 3V Stat XR foot LT min 3V Stat Vital Signs Vital signs: Vital Signs - 8 hr 07/06/24 06:00 Temperature 98.4 F Pulse Rate 87 Respiratory Rate 16 Blood Pressure 166/91 H Pulse Oximetry 99 Oxygen Delivery Method Room Air MDM - Fall Imaging Data Extremity x-ray #1: Radiologist's Impression: [address] [address] XRay Report Signed Patient: Grace Orantes MR#: [id number] : 1970 Acct:[id number] Age/Sex: 54 / F Date of Service: 07/06/24 Loc: ED Accession Number: [id number] Procedure: XR ankle LT min 3V Ordering Provider: Liyah Ledbetter D.O. PROCEDURE: XR ANKLE LT MIN 3V INDICATIONS: fall TECHNIQUE: 3 views of the ankle were acquired. COMPARISON: None. FINDINGS: Bones: No acute fractures or dislocations. Ankle mortise is normally aligned. No suspicious bony lesions. Plantar calcaneal and retrocalcaneal enthesophytes. Soft tissues: No tibiotalar joint effusion. Achilles tendon appears normal. Mild soft tissue swelling of the anterior left ankle and plantar aspect of the heel. IMPRESSION: Left ankle without acute fracture or dislocation. Mild soft tissue swelling of the left ankle and heel. Prominent plantar calcaneal and retrocalcaneal enthesophytes. If there is persistent clinical concern for occult fracture given adequate mechanism of injury, consider repeat imaging in 10-14 days. Immobilization as clinically indicated. Dictated by: Talat Oshea M.D. on 07/06/2024 at 7:39 Approved by: Talat Oshea M.D. on 07/06/2024 at 7:41 Extremity x-ray #2: Radiologist's Impression: Grace Orantes??54??F??1970 ? Allergy/Adv: Penicillins, mold, peach (More??) Close Foot X-Ray (Signed) Talat Oshea - 07/06/24 Ankle X-Ray (Signed) Talat Oshea - 07/06/24 Breast Ultrasound (Signed) Ned,Colton - 02/19/24 Mammogram Diagnostic (Signed) Ned,Colton - 02/19/24 Hip X-Ray (Signed) Ned,Colton - 09/28/23 Pelvis X-Ray (Signed) Ned,Colton - 09/28/23 Hip X-Ray (Signed) Maurizio Vega - 07/10/23 Mammogram Screening (Signed) Paola Bates - 12/26/22 Finger X-Ray (Signed) Pavel Gomez - 03/04/23 Mammogram Screening (Signed) Dimple Estrada - 12/13/21 Hip X-Ray (Signed) Alf Stephen - 10/13/20 Pelvis X-Ray (Signed) Marianela Hargrove - 10/13/20 Hip X-Ray (Signed) Pavel Gomez - 05/18/20 Abdomen/Pelvis CT (Signed) FrancoisSrinivasan - 11/23/[address] (Signed) Srinivasan Parrish - 11/23/19 Barium Swallow X-Ray (Signed) Janusz Kimble - 11/22/19 Abdomen Ultrasound (Signed) Papi Johnson - 11/20/19 Abdomen/Pelvis CT (Signed) Papi Johnson - 11/20/19 Mammogram Screening (Signed) Teodoro Souza - 11/30/[address] [address] XRay Report Signed Patient: Grace Orantes MR#: [id number] : 1970 Acct:[id number] Age/Sex: 54 / F Date of Service: 07/06/24 Loc: ED Accession Number: [id number] Procedure: XR foot LT min 3V Ordering Provider: Liyah Ledbetter D.O. PROCEDURE: XR FOOT LT MIN 3V INDICATIONS: fall TECHNIQUE: 3 views of the foot were acquired. COMPARISON: None. FINDINGS: Bones: No fractures or dislocations. No suspicious bony lesions. Plantar calcaneal and retrocalcaneal enthesophytes. Soft tissues: No tibiotalar joint effusion. Achilles tendon appears normal. Minimal soft tissue swelling of the anterior left ankle and plantar aspect of the left heel. IMPRESSION: Minimal soft tissue swelling of the anterior left ankle and heel without underlying fracture or dislocation. Plantar calcaneal and retrocalcaneal enthesophytes. If there is persistent clinical concern for occult fracture given adequate mechanism of injury, consider repeat imaging in 10-14 days. Immobilization as clinically indicated. Dictated by: Talat Oshea M.D. on 07/06/2024 at 7:45 Approved by: Talat Oshea M.D. on 07/06/2024 at 7:46 MDM Narrative Medical decision making narrative: 54-year-old female with a fall down stairs, denies hitting her head no neck or back injuries. Patient has tenderness over the lateral malleolus with some mild pain with weight-bearing meets Letcher ankle rules for imaging. Patient isn't anticoagulated. Tetanus is up-to-date. Left foot x-ray shows minimal soft tissue swelling anterior left ankle and heel without underlying fracture dislocation plantar calcaneal and retrocalcaneal enthesophytes. Ankle x-ray shows left ankle without fracture or dislocation mild soft tissue swelling left ankle and heel prominent plantar calcaneal and retrocalcaneal enthesophytes. Patient has been tenderness negative left foot and ankle x-rays. Discussed with patient she was able to weightbear fairly well so we will provide an Denzel wrap. She defers ortho boot or crutches. Plan for RICE. Acetaminophen or ibuprofen as needed for discomfort. Repeat imaging in 7-10 days if symptoms persistent or worsening discussed return precautions. Discharge Plan Departure Patient Disposition: Home Clinical Impression: Left ankle sprain, Abrasion of left leg Instructions: DI for Ankle Sprain Activity Restrictions/Additional Instructions: Please follow up in the next 7-10 days if you are not having significant improvement in your symptoms. Sometimes you can have small or occult fractures that are not imaged on initials x-ray that we will be seen the bone heals. You take acetaminophen to a 1000 mg every 6 hours and/or ibuprofen up to 600 mg every 6 hours as needed for discomfort. Weightbear as tolerated. Splint Care: Keep splint clean and dry. Elevated affected body part to decrease swelling. OK to use ice pack on the affected body part. Use for 15-20 minutes each time, for 5-6x per day. If you develop worsening pain, numbness, tingling, discoloration of the affected body part, adjust the Denzel bandage, and either see your doctor for an urgent re-assessment, or return to the Emergency Department. Return to the Emergency Department for any new or worsening symptoms. Prescriptions: No Action acetaminophen 325 mg Tablet 650 mg PO Q6H PRN (Reason: Fever/Mild Pain (1-3)) Qty: 90 0RF lisinopril 10 mg tablet 10 mg PO DAILY Referrals: Angelika Rawls DO [Primary Care Provider] - Stand Alone Forms: Patient Portal/API/Survey
[2024-07-06 08:17] VITALS: BP 174/93; PULSE 76; RESP 16; O2SAT 97
== END 2024-07-06 08:28 | disposition home or self-care (01) ==
PROVIDERS: Emergency Provider Emergency Medicine; PCP Family Medicine
DX: S93.402A Sprain of unspecified ligament of left ankle, initial encounter (principal); S80.812A Abrasion, left lower leg, initial encounter; W10.9XXA Fall (on) (from) unspecified stairs and steps, initial encounter
CPT/HCPCS: 73610; 73630; 99281; 99283

== ENCOUNTER → 2024-08-19 08:40 | Outpatient (CLI) | payer OTHER, SELFPAY ==
[2023-09-28 10:51] VITALS: BMI 33.5
--- NOTE | 2024-08-19 08:42 | DI.US.S_ITS ---
LIMITED ULTRASOUND OF LEFT BREAST: 08/19/2024 CLINICAL: 6 month follow-up of lump. Comparison is made to exams dated: 08/19/2024 mammogram, 02/19/2024 ultrasound, 02/19/2024 mammogram, 12/26/2022 mammogram, 12/13/2021 mammogram, and 11/30/2018 mammogram - [facility]. Color flow and real-time ultrasound of the left breast 11 o'clock region were performed. Reid scale images of the real-time examination were reviewed. There is a 0.6 cm x 0.7 cm x 0.4 cm oval complex cyst in the left breast at 11 o'clock anterior depth 4 cm from the nipple. This abnormality is less prominent and correlates as palpated, to the reported pain, and with mammography findings. IMPRESSION: PROBABLY BENIGN The 0.6 cm x 0.7 cm x 0.4 cm oval complex cystic solid mass in the left breast contained fat and rim calcification on comparison mammogram and likely represents fat necrosi. This is probably benign. A follow-up bilateral mammogram and a left ultrasound in 6 months is recommended to demonstrate stability versus continued decrease in prominence. If findings demonstrated sufficient decrease in size and conspicuity at the follow exam, consideration to return patient to annual screening mammography can be considered at that time. Findings and recommendations were conveyed to the patient during today's evaluation. This exam was interpreted at Station ID: [id number]. Electronically Signed By: Talat Oshea M.D. aty/:08/19/2024 09:57:07 letter sent: Followup Recommended ACR BI-RADS Category 3: Probably Benign
--- NOTE | 2024-08-19 08:42 | DI.MG.S_ITS ---
UNILATERAL LEFT DIGITAL DIAGNOSTIC MAMMOGRAM 3D/2D: 08/19/2024 CLINICAL: Patient returns for a 6 month follow up of the left breast. Comparison is made to exams dated: 02/19/2024 mammogram, 12/26/2022 mammogram, and 12/13/2021 mammogram - [facility]. There are scattered areas of fibroglandular density (category b / 25%-50% glandular tissue). There is an oval fat containing mass in the left breast at 12 o'clock anterior depth. This is demonstrated by prior ultrasound. This is not significantly changed and correlates as palpated and to area of previous tenderness. No other new significant masses or calcifications are seen in the breast. IMPRESSION: INCOMPLETE: NEED ADDITIONAL IMAGING EVALUATION The oval fat containing mass in the left breast resembles a cyst or fat necrosis and is indeterminate. An ultrasound is recommended for further evaluation and is scheduled to immediately follow this examination. Based on the Tyrer Cuzick model (a risk assessment model) the patient's lifetime risk is 16.3% and her 10 year risk is 5.4%. According to the ACR, ACS, and NCCN guidelines, an annual breast MRI exam along with mammogram is recommended if the patient's lifetime risk is 20% or greater. This exam was interpreted at Station ID: [id number]. NOTE: For mammograms, a report in lay terms will be sent to the patient. Approximately 15% of breast malignancies will not be visualized mammographically. In the management of a palpable breast mass, a negative mammogram must not discourage biopsy of a clinically suspicious lesion. Electronically Signed By: Talat Oshea M.D. at/:08/19/2024 09:42:13 letter sent: Additional Imaging Needed ACR BI-RADS Category 0: Incomplete: Need Additional Imaging Evaluation
== END ==
PROVIDERS: PCP Family Medicine; Referring Provider Family Medicine; Visit Provider Family Medicine
DX: N63.25 Unspecified lump in the left breast, overlapping quadrants (principal); R92.8 Other abnormal and inconclusive findings on diagnostic imaging of breast
CPT/HCPCS: 76642; 77065; G0279

== ENCOUNTER → 2025-04-07 08:15 | Outpatient (CLI) | payer OTHER, SELFPAY ==
[2023-09-28 10:51] VITALS: BMI 33.5
--- NOTE | 2025-04-07 08:15 | DI.RAD.S_ITS ---
PROCEDURE: XR KNEE RT 3V INDICATIONS: growth on right knee cap TECHNIQUE: 3 views of the knee were acquired. COMPARISON: None. FINDINGS: Bones: No fractures or dislocations. No suspicious bony lesions. Soft tissues: No joint effusion. No suspicious soft tissue calcifications. IMPRESSION: No acute bony abnormality or significant effusion. Dictated by: Miguel Griffin M.D. on 04/08/2025 at 5:56 Approved by: Miguel Griffin M.D. on 04/08/2025 at 5:58
== END ==
PROVIDERS: PCP Family Medicine; Referring Provider Family Medicine; Visit Provider Family Medicine
DX: M25.561 Pain in right knee (principal); G89.29 Other chronic pain
CPT/HCPCS: 73562

== ENCOUNTER → 2025-04-21 08:42 | Outpatient (CLI) | payer OTHER, SELFPAY ==
[2023-09-28 10:51] VITALS: BMI 33.5
--- NOTE | 2025-04-21 08:43 | DI.US.S_ITS ---
US breast LT limited, MM diagnostic mammo BI: 04/21/2025 BI-RADS: 2 CLINICAL: 55-year old female for bilateral diagnostic mammogram and left diagnostic breast ultrasound that is a follow-up to ultrasound, left on 08/19/2024. Tyrer- Cuzick lifetime risk of 15.3%. No personal or first-degree family history of breast cancer. Current reported family history of breast cancer: maternal aunt and second maternal aunt. PRIOR EXAMS 08/19/2024, 02/19/2024, 12/26/2022, 12/13/2021, 11/30/2018, 11/18/2017, 02/19/2016, 08/14/2015, 07/31/2015. MAMMOGRAPHY TECHNIQUE: 2D and 3D (tomosynthesis) digital mammographic views obtained, with additional images as needed for full coverage. Current study was also evaluated with a Computer Aided Detection (CAD) system. ULTRASOUND TECHNIQUE: Real-time ward scale and color doppler imaging of the area of clinical interest was performed with image documentation. TARGETED Left Breast Ultrasound: Real-time ultrasound exam was performed focused to area of clinical and/or imaging concern. DENSITY B. There are scattered areas of fibroglandular density. MAMMOGRAPHY FINDINGS Right: No suspicious mass, asymmetry, microcalcification, or other abnormality seen. Left (finding-1): Upper at 12:00, Anterior depth, measuring 0.5cm - previously measuring (02/19/2024) 0.7cm: Correlating with prior imaging concern there is a circumscribed, oval, fat-containing mass present. This finding has decreased in size compared to the initial presentation on 02/19/2024. This is consistent with fat necrosis. ULTRASOUND FINDINGS Left (finding-1): Upper Inner at 11:00, 4 cm from nipple, measuring 0.6 x 0.4 x 0.6 cm - previously measuring (02/19/2024) 0.8 x 0.6 x 0.7 cm: Correlating with findings on mammogram there is an oval, circumscribed mass with complex echo pattern that is parallel showing no posterior acoustic features. Doppler shows no vascularity. This corresponds to fat necrosis seen on the mammogram. IMPRESSION: Right * No evidence of malignancy. Left * No evidence of malignancy with benign findings. RECOMMENDATIONS Bilateral * Annual screening mammography. COMMENTS: Findings and recommendations were conveyed to the patient during today's evaluation. Initially, the patient was instructed to return in 1 year for follow up diagnostic mammogram and ultrasound of the left breast, however upon further review, the complex cystic and solid mass corresponding to fat necrosis in the left breast has decreased in size over time, further supporting a benign etiology. The patient may return for annual screening mammography in 1 year. OVERALL ASSESSMENT CATEGORY BI-RADS-2: Benign. The [employer] recommends annual screening mammography beginning at age 40 for women with average risk of breast cancer. ELECTRONICALLY SIGNED: Maile Peralta M.D. on 04/21/2025 at 10:11:17 AM PT Interpreting Station ID: [id number]
== END ==
PROVIDERS: PCP Family Medicine; Referring Provider Family Medicine; Visit Provider Family Medicine
DX: N63.22 Unspecified lump in the left breast, upper inner quadrant (principal); Z80.3 Family history of malignant neoplasm of breast
CPT/HCPCS: 76642; 77066; G0279